=== PATIENT | female | born 1985 | race Caucasian/White ===

== ENCOUNTER 2023-11-26 17:04 | Emergency (ER) | payer MEDICAID, SELFPAY ==
[2023-11-26 17:05] VITALS: BP 125/106; PULSE 77; RESP 22; TEMP 35.4; O2SAT 99; BMI 31.7
--- NOTE | 2023-11-26 17:22 | CT_ITS ---
STUDY: CT Abdomen And Pelvis W/O Contrast Injection 11/26/2023 6:15 PM REASON FOR EXAM: Female, 38 years old. pain R flank pain Individualized dose optimization techniques were used for this CT. COMPARISON: None. TECHNIQUE: CT Abdomen And Pelvis W/O Contrast Injection FINDINGS: The visualized lung bases are unremarkable. The visualized portions of the heart are within normal limits. Normal liver. Normal gallbladder and extrahepatic biliary system. Normal spleen. Normal pancreas. Normal bilateral adrenal glands. There are hypodensities in the right kidney. These are consistent for cysts. No follow up required. No acute findings of the left kidney. Normal visualized stomach. Normal small intestine. Stool throughout the colon. There are surgical clips in the region of the appendix consistent with a prior appendectomy. No acute findings of the abdominal aorta. Normal inferior vena cava. Subcentimeter mesenteric lymph nodes. Normal urinary bladder. Normal visualized uterus. There is an umbilical hernia containing fat. There are diffuse degenerative changes of the visualized lumbar spine. CT/Abdomen/Pelvis without Cont IMPRESSION: (NOT LISTED IN ORDER OF SIGNIFICANCE) There are no acute findings. There are no acute findings. Other findings as above. Electronically Signed: Chris Godinez MD at 18:18 [facility] ,
--- NOTE | 2023-11-26 17:30 | EDS_ITS ---
HPI <GEE Murguia - Last Filed: 11/26/23 20:54> HPI - GI History of Present Illness Chief Complaint: Abd Pain Narrative Narrative: Patient presenting today due to right pain that radiates into her right lower quadrant and right groin that started around 3:30 PM this afternoon. She reports that the pain is sharp and constant. 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 She is not sure if this is related to her pain today or not. She does have a history of kidney stones and thinks that this feels similar. She denies any urinary symptoms. She has had one episode of nausea and vomiting today. Previous abdominal surgeries include appendectomy. She denies fevers, chills, and diarrhea. PFSH <GEE Murguia - Last Filed: 11/26/23 20:54> PFSH Medical History Epilepsy Kidney stone Ovarian cyst Home Medications cyclobenzaprine 10 mg tablet 10 mg PO TID PRN Muscle Spasm 5 days #15 TABLETS 11/26/23 [Rx Last Taken Unknown] fluoxetine 10 mg capsule (Prozac) 10 mg PO DAILY 11/26/23 [History Last Taken Unknown] loratadine 10 mg tablet (Allerclear) 10 mg PO DAILY 11/26/23 [History Last Taken Unknown] multivitamin (Daily Multi-Vitamin tablet) 1 tab PO DAILY 11/26/23 [History Last Taken Unknown] naproxen 500 mg tablet 500 mg PO BID #14 tabs 11/26/23 [Rx Last Taken Unknown] Allergy/AdvReac Type Severity Reaction Status Date / Time codeine Allergy Severe NEEDS Verified 11/26/23 17:07 FOLLOW-UP Penicillins Allergy Severe NEEDS Verified 11/26/23 17:07 FOLLOW-UP Surgical History Hx of appendectomy Hx of tonsillectomy Social History Smoking Status: Former smoker ROS <GEE uMrguia - Last Filed: 11/26/23 20:54> ROS ED Constitutional Constitutional ED: Denies chills or fever(s) Cardiovascular Cardiovascular: Denies chest pain Respiratory/Chest Respiratory/Chest: Denies cough or dyspnea Gastrointestinal Gastrointestinal: Reports abdominal pain, nausea and vomiting; Denies constipation or diarrhea Genitourinary Genitourinary ED: Denies dysuria, hematuria or urinary urgency Musculoskeletal Musculoskeletal: Reports back pain; Denies arthralgias or myalgias Integumentary Denies rash Neurologic Neurologic: Denies weakness EXAM <GEE Murguia - Last Filed: 11/26/23 20:54> Physical Exam Const Vital Signs: 11/26/23 17:05 11/26/23 17:18 11/26/23 19:04 Temperature 95.8 F L Temperature Source Temporal Pulse Rate 77 64 Respiratory Rate 22 H 16 Respiratory Effort Normal Non-Labored Respiratory Pattern Normal Blood Pressure 125/106 H 118/73 Blood Pressure Mean 112 88 Pulse Ox 99 99 Oxygen Delivery Method Room Air Positive well nourished, well developed and no apparent distress General Appearance ED: well developed HEENT Reports normocephalic and head/scalp atraumatic Mouth ED: Yes moist mucous membranes normal Eyes PERRL and EOMs intact bilaterally Neck full ROM and supple Chest Wall inspection of chest normal Resp normal respiratory effort and clear to auscultation bilaterally Cardio regular rate and regular rhythm GI soft to palpation, non-distended and no masses GI Narrative: Right lower quadrant tenderness to palpation, no rigidity, guarding, or peritoneal signs. Tenderness to palpation to the right groin. Back/Spine normal ROM and normal to inspection General Back: CVA tenderness right Extremity normal to inspection and full ROM Neuro oriented x3, CN's II-XII intact bilaterally, moves all extremities, no focal motor deficits and no sensory deficits noted Sensorium / Orientation: awake and alert Psych mental status grossly normal and thought process normal Skin no rashes or lesions noted and no wounds <Wilbert Rahman MD - Last Filed: 11/27/23 00:00> Physical Exam Const Vital Signs: 11/26/23 17:05 11/26/23 17:18 11/26/23 19:04 Temperature 95.8 F L Temperature Source Temporal Pulse Rate 77 64 Respiratory Rate 22 H 16 Respiratory Effort Normal Non-Labored Respiratory Pattern Normal Blood Pressure 125/106 H 118/73 Blood Pressure Mean 112 88 Pulse Ox 99 99 Oxygen Delivery Method Room Air MDM <GEE Murguia - Last Filed: 11/26/23 20:54> [facility] Narrative Medical decision making narrative: Patient presenting today due to right lower quadrant abdominal pain that radiates into the right flank and right groin. Symptoms started suddenly around 3:30 PM today. Reports that she has had 1 episode of vomiting today. She does have tenderness to her right lower quadrant, right flank, right groin. She reports an extensive history of kidney stones. 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 Abdominal labs will be obtained to rule out leukocytosis, anemia, electrolyte abnormality, ROB, UTI, hepatobiliary etiology, and pancreatitis. CT of the abdomen and pelvis will be obtained to rule out kidney stone, hernia, and other etiology. Labs overall are unremarkable. UA does show nitrites and leukocyte Estrace, she does not have any urinary symptoms, this will be cultured. UA does show blood, she is on her menstrual period. CT is negative for any acute findings. Patient's examination is consistent with muscular strain of the right groin. She will be given work restrictions. She can alternate Tylenol and ibuprofen for pain as needed. She will be discharged home in stable condition and is comfortable with plan. Lab Data Attestation: I reviewed the patient's lab results. Labs: Laboratory Results - last 24 hr 11/26/23 11/26/23 17:32 17:35 WBC 5.4 RBC 4.63 Hgb 13.1 Hct 38.9 MCV 84.0 MCH 28.3 MCHC 33.7 RDW Std Deviation 40.5 RDW Coeff of Kenna 13.2 Plt Count 327 MPV 9.0 Immature Gran % (Auto) 0.200 Neut % (Auto) 56.5 Lymph % (Auto) 34.7 [place] % (Auto) 5.9 Eos % (Auto) 2.0 Baso % (Auto) 0.7 Absolute Neuts (auto) 3.1 Absolute Lymphs (auto) 1.88 Nucleated RBC % 0 Sodium 140 Potassium 3.6 Chloride 108 H Carbon Dioxide 26.0 Anion Gap 6 BUN 7 Creatinine 0.76 Estim Creat Clear Calc 106.87 Est GFR (MDRD) Af Amer 108 Est GFR (MDRD) Non-Af 89 BUN/Creatinine Ratio 9.2 L Glucose 94 Calcium 9.6 Total Bilirubin 0.40 Direct Bilirubin 0.10 AST 17 ALT 16 Alkaline Phosphatase 102 Total Protein 7.6 Albumin 3.9 Globulin 3.7 Lipase 18 Serum , Qual NEGATIVE Urine Color Red Urine Clarity Cloudy Urine pH 5.0 Ur Specific [place] 1.020 Urine Protein 100 H Urine Glucose (UA) Normal Urine Ketones 5 H Urine Occult Blood 250 H Urine Nitrite Positive H Urine Bilirubin Negative Urine Urobilinogen Normal Ur Leukocyte Esterase 100 H Urine RBC > 100 SEEN Urine WBC 0 SEEN Ur Squamous Epith Cells 0-5 SEEN Urine Bacteria 0 SEEN Urine Mucus 0 SEEN Radiography Diagnostic Testing: Clinical Impression(s) from Imaging Studies Abdomen/Pelvis CT 11/26/23 17:22 IMPRESSION: (NOT LISTED IN ORDER OF SIGNIFICANCE) There are no acute findings. There are no acute findings. Other findings as above. Electronically Signed: Chris Godinez MD at 18:18 EST Reading Location ID and State: [facility] / [place] , Service support , <Wilbert Rahman MD - Last Filed: 11/27/23 00:00> [facility] Narrative Medical decision making narrative: Patient presenting today due to right lower quadrant abdominal pain that radiates into the right flank and right groin. Symptoms started suddenly around 3:30 PM today. Reports that she has had 1 episode of vomiting today. She does have tenderness to her right lower quadrant, right flank, right groin. She reports an extensive history of kidney stones. 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 Abdominal labs will be obtained to rule out leukocytosis, anemia, electrolyte abnormality, ROB, UTI, hepatobiliary etiology, and pancreatitis. CT of the abdomen and pelvis will be obtained to rule out kidney stone, hernia, and other etiology. Labs overall are unremarkable. UA does show nitrites and leukocyte Estrace, she does not have any urinary symptoms, this will be cultured. UA does show blood, she is on her menstrual period. CT is negative for any acute findings. Patient's examination is consistent with muscular strain of the right groin. She will be given work restrictions. She can alternate Tylenol and ibuprofen for pain as needed. She will be discharged home in stable condition and is comfortable with plan. Dr. Rahman: I have personally performed a face to face assessment of the patient and have reviewed the PEDRO Note. I performed a substantive portion of the visit including all aspects of the following. My henry findings include: History is right groin pain/right lower quadrant abdominal pain after lifting heavy patient. Exam is afebrile. Vital signs noted. Mild tenderness to palpation right lower quadrant, and the right inguinal area, no palpable hernia. Abdomen otherwise soft and nontender. Positive bowel sounds. Medical Decision Making: Check labs. Check CT. I reviewed the CT results see no evidence of an acute process. Do feel she may have more of a musculoskeletal groin strain. Symptomatic treatment with anti-inflammatories and muscle relaxers. Follow-up primary care. Discharge. Other additions or changes: [None] History & Record Review Discussion w/independent historian: Patient Lab Data Labs: Laboratory Results - last 24 hr 11/26/23 11/26/23 17:32 17:35 WBC 5.4 RBC 4.63 Hgb 13.1 Hct 38.9 MCV 84.0 MCH 28.3 MCHC 33.7 RDW Std Deviation 40.5 RDW Coeff of Kenna 13.2 Plt Count 327 MPV 9.0 Immature Gran % (Auto) 0.200 Neut % (Auto) 56.5 Lymph % (Auto) 34.7 [place] % (Auto) 5.9 Eos % (Auto) 2.0 Baso % (Auto) 0.7 Absolute Neuts (auto) 3.1 Absolute Lymphs (auto) 1.88 Nucleated RBC % 0 Sodium 140 Potassium 3.6 Chloride 108 H Carbon Dioxide 26.0 Anion Gap 6 BUN 7 Creatinine 0.76 Estim Creat Clear Calc 106.87 Est GFR (MDRD) Af Amer 108 Est GFR (MDRD) Non-Af 89 BUN/Creatinine Ratio 9.2 L Glucose 94 Calcium 9.6 Total Bilirubin 0.40 Direct Bilirubin 0.10 AST 17 ALT 16 Alkaline Phosphatase 102 Total Protein 7.6 Albumin 3.9 Globulin 3.7 Lipase 18 Serum , Qual NEGATIVE Urine Color Red Urine Clarity Cloudy Urine pH 5.0 Ur Specific [place] 1.020 Urine Protein 100 H Urine Glucose (UA) Normal Urine Ketones 5 H Urine Occult Blood 250 H Urine Nitrite Positive H Urine Bilirubin Negative Urine Urobilinogen Normal Ur Leukocyte Esterase 100 H Urine RBC > 100 SEEN Urine WBC 0 SEEN Ur Squamous Epith Cells 0-5 SEEN Urine Bacteria 0 SEEN Urine Mucus 0 SEEN Radiography Diagnostic Testing: Clinical Impression(s) from Imaging Studies Abdomen/Pelvis CT 11/26/23 17:22 IMPRESSION: (NOT LISTED IN ORDER OF SIGNIFICANCE) There are no acute findings. There are no acute findings. Other findings as above. Electronically Signed: Chris Godinez MD at 18:18 EST Reading Location ID and State: [facility] / [place] , Service support , Discharge Plan Triage Chief Complaint: Abd Pain ED Midlevel Provider: Kary Blakely ED Provider: Wilbert Rahman Dx/Rx/DC Orders Clinical Impression: Strain of right groin Instructions: ED Groin Strain Prescriptions: New naproxen 500 mg tablet 500 mg PO BID Qty: 14 0RF cyclobenzaprine 10 mg tablet 10 mg PO TID PRN (Reason: Muscle Spasm) 5 Days Qty: 15 0RF No Action fluoxetine [Prozac] 10 mg capsule 10 mg PO DAILY multivitamin [Daily Multi-Vitamin] Tablet 1 tab PO DAILY loratadine [Allerclear] 10 mg tablet 10 mg PO DAILY Stand Alone Forms: Work Status Form Primary Care Provider: Bessie Cadet NP Referrals: NOT,DEFINED [Non-Staff] - Activity Restrictions/Additional Instructions: Follow-up with your PCP, return for any worsening of your symptoms. Disposition Disposition: Home, Self Care Discharge Date/Time: 11/26/23 19:06
[2023-11-26] MEDS: Ondansetron 4 MG/2 ML Vial IV (17:31)
[2023-11-26] MEDS: Ketorolac 15 MG/ML Vial IV (17:32)
[2023-11-26 17:42] LABS: Bacteria 0 SEEN /hpf (None Seen); Mucous, Urine 0 SEEN /hpf (<or=2+)
[2023-11-26 17:59] LABS: Color, Urine Red (Yellow); Glucose, Dipstick Normal (Normal); Ketone-Dipstick 5 mg/dl (Negative); Leukocyte Esterase-Dipstick 100 /ul (Negative); Nitrite-Dipstick Positive (Negative); Occult Blood-Urine 250 /ul (Negative); Protein-Dipstick 100 mg/dl (Negative); Urine Bilirubin Dipstick Negative (Negative); Urine Clarity Cloudy (Clear); Urine Urobilinogen Normal (Normal)
[2023-11-26 17:59] LABS: Absolute Lymphocyte Count 1.88 X10^3/uL (0.83-4.51); Absolute Neutrophil Count 3.1 X10^3/uL (2.0-7.7); Basophil# 0.04 X10^3/uL; Basophil% 0.7 % (0-1); Eosinophil# 0.11 X10^3/uL; Hematocrit 38.9 % (37-47); Hemoglobin 13.1 g/dL (12.0-15.0); Lymphocyte # 1.88 X10^3/ul (0.83-4.51); Lymphocyte % 34.7 % (19-41); Mean Corp Hgb Conc 33.7 g/dL (32-36); Mean Corpuscular Hgb 28.3 pg (27.0-32.0); Monocyte# 0.32 X10^3/uL; Monocyte% 5.9 % (0-10); NRBC Flagged by Analyzer 0 % (0-5); Neutrophil # 3.06 X10^3/uL (2.7-7.7); Neutrophil % 56.5 % (47-70); Platelet Count 327 K/mm3 (150-450); RBC Distribution Width CV 13.2 % (11.6-14.6); RBC Distribution Width SD 40.5 fl (35.1-43.9); Red Blood Count 4.63 M/mm3 (4.2-5.4); White Blood Count 5.4 K/mm3 (4.4-11.0)
[2023-11-26 18:05] LABS: Red Blood Cells-Urine > 100 SEEN /hpf (0-5); Squamous Epithelial Cells - UA 0-5 SEEN /hpf (5-10); White Blood Cells 0 SEEN /hpf (0-5)
[2023-11-26 18:12] LABS: Internal QC Validated? YES +Cl - CLEAR BKGD; Pregnancy, Serum, hCG Quali. NEGATIVE Negative
[2023-11-26 18:17] LABS: Anion Gap 6 (5-15); BUN 7 mg/dL (7-18); BUN/Creat Ratio 9.2 RATIO (10-20); Calcium,Total 9.6 mg/dL (8.5-10.1); Chloride 108 mmol/L (98-107); Creatinine, Serum 0.76 mg/dL (0.55-1.02); EST Glomerular Filtration Rate 89 mL/min (>60); Est Glom Filt Rate - Afr Amer 108 mL/min (>60); Estimated Creatinine Clearance 106.87 ml/min; Glucose 94 mg/dL (74-106); Potassium 3.6 mmol/L (3.5-5.1); Sodium Level 140 mmol/L (136-145)
[2023-11-26 18:44] LABS: Lipase 18 U/L (13-75)
[2023-11-26 18:46] LABS: AST(SGOT) 17 U/L (15-37); Alanine Aminotransfer ALT/SGPT 16 U/L (13-56); Albumin, Serum 3.9 g/dL (3.2-5.0); Alkaline Phosphatase 102 U/L (45-117); Globulin 3.7 g/dL (2.2-4.2); Protein, Total 7.6 g/dL (6.4-8.2)
[2023-11-26 19:04] VITALS: BP 118/73; PULSE 64; RESP 16; O2SAT 99
== END 2023-11-26 19:06 | disposition home or self-care (01) ==
PROVIDERS: Physician Assistant; Emergency Provider Emergency Medicine; PCP Nurse Practitioner Family; Visit Provider Emergency Medicine
DX: S39.011A Strain of muscle, fascia and tendon of abdomen, initial encounter (principal); Z87.891 Personal history of nicotine dependence; Z87.442 Personal history of urinary calculi; X50.0XXA Overexertion from strenuous movement or load, initial encounter
CPT/HCPCS: 74176; 80048; 80076; 81001; 83690; 84703; 85025; 96374; 96375; 99283; A4216; J2405

== ENCOUNTER → 2024-01-11 | Outpatient (CLI) | payer MEDICAID, SELFPAY | END | disposition home or self-care (01) | PROVIDERS: PCP Nurse Practitioner Family; Visit Provider Physician Assistant Surgical | DX: N39.0 Urinary tract infection, site not specified (principal) | CPT/HCPCS: 87086; 87088 ==

== ENCOUNTER 2024-08-04 16:11 | Emergency (ER) | payer MEDICAID, SELFPAY ==
[2024-08-04 16:12] VITALS: BP 144/111; PULSE 81; RESP 18; TEMP 36.6; O2SAT 97; BMI 34.3
--- NOTE | 2024-08-04 16:24 | ED.VIS.LOWEX ---
HPI History of Present Illness Chief Complaint: Lower Extremity Injury Narrative Narrative: 39-year-old female past medical history of epilepsy and has had previous plantar fasciitis presents with left foot and ankle pain that she has had for about the last 3 weeks. She relates history that she is at work and on her feet all day and stands on concrete. She has had to change her shoes multiple times in the past. She presents with pain diffusely across the top of her foot and somewhat in her heel as well on the bottom/plantar aspect that she has had for 3 weeks. She states she went to her primary care provider previously and asked for referral to podiatry, but has not heard back. She presents because the continued pain. She states while she always has always had bouts of plantar fasciitis, she states she usually deals with it. She presents because the pain in her left foot that is continuing to get worse. [facility] Medical History Epilepsy Ovarian cyst Kidney stone Home Medications ?Medication ?Instructions ?Recorded ?Last Taken ?Type fluoxetine 10 mg capsule (Prozac) 10 mg PO DAILY 11/26/23 Unknown History multivitamin (Daily Multi-Vitamin 1 tab PO DAILY 11/26/23 Unknown History tablet) naproxen 500 mg tablet 500 mg PO BID #14 tabs 11/26/23 Unknown Rx melatonin 5 mg capsule 5 mg PO DAILY PRN sleep 08/04/24 Unknown History Allergy/AdvReac Type Severity Reaction Status Date / Time codeine Allergy Severe NEEDS Verified 08/04/24 16:14 FOLLOW-UP Penicillins Allergy Severe NEEDS Verified 08/04/24 16:14 FOLLOW-UP Seasonal Allergies: Uncoded Allergy Mild Other Verified 08/04/24 16:14 Surgical History Hx of tonsillectomy Hx of appendectomy Social History Smoking Status: Former smoker ROS ROS ED ROS Narrative Constitutional: No fever, no chills. HEENT: No sore throat. No neck pain. No loss of vision. No rhinorrhea. Cardiovascular: No chest pain. No palpitations. No pedal edema. Respiratory: No cough, no shortness of breath. Abdominal: No abdominal pain. No nausea. No vomiting. Genitourinary: No dysuria. No hematuria. Musculoskeletal: Left plantar heel and left dorsum of foot pain, mild left ankle pain. Neurologic: No headaches. No dizziness. No lightheadedness. Skin: No rash. No change in color. Psychiatric: No depression. No anxiety. EXAM Physical Exam Narrative Exam Narrative: Afebrile. Vital signs noted. Nontoxic-appearing. Regular rate and rhythm. Lungs clear to auscultation bilaterally. Abdomen soft nontender with normal active bowel sounds. Focused examination of the left foot reveals diffuse tenderness to palpation along the dorsum of the foot mainly in the tarsal bones. Palpable dorsalis pedis pulse. No malleolus tenderness. Mild tenderness palpation on plantar aspect of foot near calcaneus. Good capillary refill of toes. Const Vital Signs: 08/04/24 16:12 Temperature 97.9 F Temperature Source Oral Pulse Rate 81 Respiratory Rate 18 Blood Pressure 144/111 H Blood Pressure Mean 122 Pulse Ox 97 Oxygen Delivery Method Room Air MDM MDM MDM Narrative Medical decision making narrative: Differential diagnosis includes but not limited to plantar fasciitis versus foot strain/sprain versus fracture. I have very low suspicion for foot or ankle fracture based on her physical examination and she has not had trauma. X-rays were obtained of the left foot to rule out fracture and interpreted by myself independently. 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 I reviewed the radiology report which confirms my independent interpretation. At this point in time, she was placed in a postoperative shoe and can continue [id number] medications and ice and elevation. She was referred to podiatry on-call. I do not feel she requires admission or observation. Return instructions to the emergency department were reviewed. Disposition is discharged home in stable condition. Radiography X-Ray: Read by ED Physician, Read by Radiologist and No Fracture Diagnostic Testing: Clinical Impression(s) from Imaging Studies Foot X-Ray 08/04/24 16:26 IMPRESSION: Degenerative changes of the first tarsometatarsal joint. Electronically Signed: Chris Godinez MD at 17:04 EDT Reading Location ID and State: [facility] / [place] , Service support , Discharge Plan Triage Chief Complaint: Lower Extremity Injury ED Provider: Wilbert Rahman Dx/Rx/DC Orders Clinical Impression: Foot pain, left, Plantar fasciitis of left foot, Osteoarthritis of foot, left Instructions: ED Osteoarthritis, ED Pain, Acute, Uncertain Cause, ED Plantar Fasciitis Prescriptions: No Action fluoxetine [Prozac] 10 mg capsule 10 mg PO DAILY multivitamin [Daily Multi-Vitamin] Tablet 1 tab PO DAILY naproxen 500 mg tablet 500 mg PO BID Qty: 14 0RF melatonin 5 mg capsule 5 mg PO DAILY PRN (Reason: sleep) Primary Care Provider: Bessie Cadet NP Referrals: Trevon Velazquez DPM [Med Staff - Active Staff] - As soon as possible Bessie Cadet NP, [employer] [Primary Care Provider] - 3-5 Days if not improving Activity Restrictions/Additional Instructions: Wear postoperative shoe when walking or standing if possible. You may remove for bathing and sleeping. Follow-up with your primary care provider or podiatry as soon as possible. Take [id number] medications like Tylenol or ibuprofen as needed for pain. Print Language: Italian Disposition Disposition: Home, Self Care
--- NOTE | 2024-08-04 16:26 | RAD_ITS ---
EXAM: XR LEFT FOOT COMPLETE, 3 OR MORE VIEWS CLINICAL INDICATION: pain TECHNIQUE: Frontal, lateral and oblique views of the left foot. COMPARISON: No relevant prior studies available. FINDINGS: BONES/JOINTS: There is a calcaneal spur. Degenerative changes of the first tarsometatarsal joint. No acute fracture. No subluxation. Normal alignment. No sclerotic or destructive changes observed. SOFT TISSUES: Unremarkable. No soft tissue swelling or gas. No radiopaque foreign body. RAD/Foot min 3 Views IMPRESSION: Degenerative changes of the first tarsometatarsal joint. Electronically Signed: Chris Godinez MD at 17:04 EDT ,
[2024-08-04 17:15] VITALS: BP 144/111; PULSE 81; RESP 18; TEMP 36.6; O2SAT 97
== END 2024-08-04 17:16 | disposition home or self-care (01) ==
LOC: ED 16:42
PROVIDERS: Emergency Provider Emergency Medicine; PCP Nurse Practitioner Family; Referring Provider Emergency Medicine; Visit Provider Emergency Medicine
DX: M79.672 Pain in left foot (principal); M19.072 Primary osteoarthritis, left ankle and foot; M72.2 Plantar fascial fibromatosis; Z87.891 Personal history of nicotine dependence
CPT/HCPCS: 73630; 99283

== ENCOUNTER → 2024-08-16 | Outpatient (CLI) | payer MEDICAID, SELFPAY ==
[2024-08-16 17:41] LABS: Hematocrit 35.9 % (37-47); Hemoglobin 12.1 g/dL (12.0-15.0); Mean Corp Hgb Conc 33.7 g/dL (32-36); Mean Corpuscular Hgb 28.2 pg (27.0-32.0); Mean Corpuscular Volume 83.7 fL (81-99); Mean Platelet Vol. 8.9 fl (6.2-12.0); Platelet Count 293 K/mm3 (150-450); RBC Distribution Width CV 13.3 % (11.6-14.6); Red Blood Count 4.29 M/mm3 (4.2-5.4); White Blood Count 6.3 K/mm3 (4.4-11.0)
[2024-08-16 18:14] LABS: ALB/GLOB Ratio 1.1 RATIO (0.9-2.4); AST(SGOT) 9 U/L (15-37); Alanine Aminotransfer ALT/SGPT 11 U/L (13-56); Albumin, Serum 3.8 g/dL (3.2-5.0); Alkaline Phosphatase 103 U/L (45-117); Amylase 32 U/L (25-115); Anion Gap 5 (5-15); BUN 11 mg/dL (7-18); BUN/Creat Ratio 13.7 RATIO (10-20); Calcium,Total 8.9 mg/dL (8.5-10.1); Chloride 108 mmol/L (98-107); EST Glomerular Filtration Rate 84 mL/min (>60); Est Glom Filt Rate - Afr Amer 101 mL/min (>60); Globulin 3.6 g/dL (2.2-4.2); Glucose 89 mg/dL (74-106); Lipase 22 U/L (13-75); Potassium 3.6 mmol/L (3.5-5.1); Protein, Total 7.4 g/dL (6.4-8.2); Sodium Level 140 mmol/L (136-145)
== END | disposition home or self-care (01) ==
LOC: LAB 17:20
PROVIDERS: PCP Nurse Practitioner Family; Referring Provider Nurse Practitioner Family; Visit Provider Nurse Practitioner Family
DX: R11.0 Nausea (principal)
CPT/HCPCS: 80053; 82150; 83690; 85027

== ENCOUNTER → 2024-10-23 | Outpatient (CLI) | payer MEDICAID, SELFPAY ==
[2024-10-26 10:07] LABS: Chlamydia By Nucleic Acid AMP Negative (Negative); Gonococcus By Nucleic Acid AMP Negative (Negative)
[2024-11-02 19:07] LABS: HPV APTIMA, High Risk Negative (Negative)
== END | disposition home or self-care (01) ==
LOC: LABSPEC 14:20
PROVIDERS: PCP Nurse Practitioner Family; Referring Provider Nurse Practitioner Women's Health; Visit Provider Nurse Practitioner Women's Health
DX: Z12.4 Encounter for screening for malignant neoplasm of cervix (principal); N89.8 Other specified noninflammatory disorders of vagina
CPT/HCPCS: 87070; 87205; 87491; 87591; 87624; 88175; G0145

== ENCOUNTER → 2025-06-30 | Outpatient (CLI) | payer MEDICAID, SELFPAY ==
[2025-06-30 12:14] LABS: Mucous, Urine 0 SEEN /hpf (<or=2+)
[2025-06-30 12:26] LABS: Color, Urine Yellow (Yellow); Glucose, Dipstick Normal (Normal); Ketone-Dipstick Negative (Negative); Leukocyte Esterase-Dipstick 100 /ul (Negative); Nitrite-Dipstick Negative (Negative); Occult Blood-Urine Negative /ul (Negative); Protein-Dipstick Negative (Negative); Specific Gravity, Urine 1.010 (1.002-1.030); Urine Bilirubin Dipstick Negative (Negative)
[2025-06-30 12:42] LABS: Red Blood Cells-Urine 0-5 SEEN /hpf (0-5); Squamous Epithelial Cells - UA 0-5 SEEN /hpf (5-10)
== END | disposition home or self-care (01) ==
LOC: LABSPEC 12:08
PROVIDERS: PCP Nurse Practitioner Family; Referring Provider Nurse Practitioner Family; Visit Provider Nurse Practitioner Family
DX: R30.0 Dysuria (principal)
CPT/HCPCS: 81001; 87086; 87088

== ENCOUNTER → 2025-09-09 | Outpatient (CLI) | payer MEDICAID, SELFPAY ==
[2025-09-09 12:27] LABS: Hematocrit 41.1 % (37-47); Hemoglobin 14.0 g/dL (12.0-15.0); Immature Granulocytes Count 0.020 X10^3/uL (0.0-0.0); Mean Corp Hgb Conc 34.1 g/dL (32-36); Mean Corpuscular Volume 84.2 fL (81-99); Mean Platelet Vol. 9.1 fl (6.2-12.0); NRBC Flagged by Analyzer 0 % (0-5); Platelet Count 373 K/mm3 (150-450); RBC Distribution Width CV 13.1 % (11.6-14.6); RBC Distribution Width SD 40.2 fl (35.1-43.9); Red Blood Count 4.88 M/mm3 (4.2-5.4); White Blood Count 7.6 K/mm3 (4.4-11.0)
[2025-09-09 13:02] LABS: AST(SGOT) 18 U/L (<=31); Alanine Aminotransfer ALT/SGPT 19 U/L (<=34); Albumin, Serum 4.6 g/dL (3.5-5.0); Alkaline Phosphatase 118 U/L (35-104); Anion Gap 10 (5-15); BUN 7 mg/dL (4-19); BUN/Creat Ratio 11.8 RATIO (10-20); Calcium,Total 9.4 mg/dL (7.6-11.0); Carbon Dioxide 26.1 mmol/L (21.0-32.0); Chloride 102 mmol/L (98-108); Cholesterol 190 mg/dL (<=200); Globulin 3.4 g/dL (2.2-4.2); Glucose 99 mg/dL (70-99); Low Density Lipoprotein Calc. 129 mg/dL; Potassium 4.1 mmol/L (3.3-5.1); Triglycerides 82 mg/dL; Very Low Density Lipoprotein 16 mg/dL (5-40); cholesterol:hdl ratio screen 4.17
[2025-09-10 14:09] LABS: ANTINUCLEAR ANTIBODIES DIRECT Negative (Negative)
== END | disposition home or self-care (01) ==
LOC: MTLAB 10:52
PROVIDERS: PCP Internal Medicine; Referring Provider Internal Medicine; Visit Provider Internal Medicine
DX: Z13.6 Encounter for screening for cardiovascular disorders (principal); M06.9 Rheumatoid arthritis, unspecified; K21.9 Gastro-esophageal reflux disease without esophagitis
CPT/HCPCS: 86225; 36415; 80053; 80061; 85025; 86038; 86200; 86431

== ENCOUNTER 2025-10-09 14:10 | Emergency (ER) | payer MEDICAID, SELFPAY ==
[2025-10-09 14:11] VITALS: BP 146/99; PULSE 80; RESP 22; TEMP 36.2; O2SAT 100; BMI 39.2
[2025-10-09 15:08] VITALS: BP 145/95; PULSE 81; RESP 16; TEMP 36.8; O2SAT 100
--- NOTE | 2025-10-09 15:26 | EX.ED.DYSGE1 ---
HPI History of Present Illness Chief Complaint: Nosebleed Narrative Narrative: Patient is a 40-year-old female presenting to the emergency department for epistaxis. Patient has history of allergies for which she receives allergy shots weekly. She states that when the weather gets dry she develops frequent nosebleeds. States that today about 20 minutes prior to arrival she began having a nosebleed that she cannot stop. Is on no oral anticoagulation. Denies any lightheadedness, dizziness or shortness of breath. [facility] Medical History Rheumatoid arthritis Seizures, post-traumatic Normal colonoscopy Epilepsy Ovarian cyst Kidney stone Home Medications ?Medication ?Instructions ?Recorded ?Last Taken ?Type naproxen 500 mg tablet 500 mg PO BID #14 tabs 11/26/23 Unknown Rx allergy shots subcut .weekly [facility] 04/28/25 Unknown History seasonal allergies fluticasone propionate 50 spray intranasal 04/28/25 Unknown History mcg/actuation nasal spray,suspension triamcinolone acetonide 0.5 % 1 applic topical TID PRN itching 04/28/25 Unknown Rx topical ointment #15 grams albuterol sulfate 90 mcg/actuation 2 puff inhalation Q6H PRN 09/09/25 Unknown Rx aerosol inhaler (Ventolin HFA) shortness of breath or wheezing #8.5 grams cetirizine 10 mg tablet (Zyrtec) 10 mg PO QDAY PRN allergy symptoms 09/09/25 Unknown Rx #90 tabs multivitamin (Daily Multi-Vitamin 1 tab PO DAILY PRN 09/09/25 Unknown History tablet) nicotine (polacrilex) 2 mg buccal 2 mg buccal Q6H PRN 09/09/25 Unknown History lozenge omeprazole 20 mg capsule,delayed 20 mg PO QDAY #90 caps 09/09/25 Unknown Rx release Allergy/AdvReac Type Severity Reaction Status Date / Time codeine Allergy Severe NEEDS Verified 10/09/25 14:12 FOLLOW-UP Penicillins Allergy Severe NEEDS Verified 10/09/25 14:12 FOLLOW-UP Seasonal Allergies: Uncoded Allergy Mild Other Verified 10/09/25 14:12 Family History Father Cancer SKin Diabetes Myocardial infarction, Onset Age: 71 Grandmother Breast cancer Maternal CVA (cerebral vascular accident) Mother Diabetes MRSA (methicillin resistant Staphylococcus aureus) Surgical History H/O lithotripsy H/O ovarian cystectomy History of mandibular surgery Hx of tonsillectomy Hx of appendectomy Social History adopted: No household members: children number of children: 1 current occupational status: employed 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 pets and animals: Yes (2) pets and animals: dog(s) sexually active: No Smoking Status: Former smoker quit date: 11/06/19 Tobacco: How many years used: 27 Smokeless tobacco user: dissolvable tobacco and other alcohol intake: former year quit: 2018 substance use type: does not use and former substance user Date of last use: diet: lactose free caffeine: Yes (blonde coffee-1qd) Type: coffee what type of physical activity do you participate in: walking frequency: other details: walks dogs duration: 15-30 minutes/day seatbelt use: always do you feel safe at home: Yes additional social history: Single ROS ROS ED ROS Narrative See HPI EXAM Physical Exam Narrative Exam Narrative: Vital signs: Reviewed General: Alert and oriented x 3. No acute distress. Well-appearing, nontoxic. HEENT: Head is normocephalic and atraumatic, sinuses nontender, pupils equal round and reactive. Nares are patent. There is dried blood in bilateral naris, no active bleeding. Oropharynx and throat exams normal. No blood in posterior oropharynx. Neck: Supple without lymphadenopathy nontender Cardiovascular: Regular rate and rhythm, no murmurs. No rubs or gallops. Normal S1 and S2 Respiratory: Clear to auscultation bilaterally. No wheezes, rales, rhonchi Abdominal: Soft and nontender. Normal bowel sounds. No guarding or rebound. Nonsurgical abdomen Extremities: No tenderness. No bruising. Normal range of motion. Normal sensation. Skin: No rash or redness. The rest of the physical exam is unremarkable Const Vital Signs: 10/09/25 14:11 10/09/25 15:08 Temperature 97.2 F L 98.2 F Temperature Source Temporal Pulse Rate 80 81 Respiratory Rate 22 H 16 Blood Pressure 146/99 H 145/95 H Blood Pressure Mean 114 111 Pulse Ox 100 100 Oxygen Delivery Method Room Air MDM MDM MDM Narrative Medical decision making narrative: Patient is a 40-year-old female presenting to the emergency department for epistaxis. Patient was seen and examined. Vitals are stable. Patient resting in bed comfortably no acute distress. On my evaluation of the patient, her epistaxis has stopped. She has no active bleeding. No intervention indicated. I did provide her with a nose clip for home to use if needed. I did also provide her with ENT follow-up. Patient discharged from the Emergency Department. I do not feel that the patient's evaluation reveals any acute reason for admission at this time. I instructed them to either follow-up with their primary care physician or promptly return to the Emergency Department for reevaluation should symptoms worsen or new symptoms develop. I explained what symptoms would indicate the need to return to the emergency department. Shared decision making was used. The patient voiced understanding of the treatment plan and is agreeable with it. Clinical impression: Epistaxis History & Record Review Discussion w/independent historian: Patient Discharge Plan Triage Chief Complaint: Nosebleed ED Provider: Nikia Laboy Dx/Rx/DC Orders Clinical Impression: Epistaxis Instructions: ED Epistaxis (Adult) Prescriptions: No Action omeprazole 20 mg capsule,delayed release(DR/EC) 20 mg PO QDAY Qty: 90 0RF cetirizine [Zyrtec] 10 mg tablet 10 mg PO QDAY PRN (Reason: allergy symptoms) Qty: 90 0RF albuterol sulfate [Ventolin HFA] 90 mcg/actuation HFA aerosol inhaler 2 puff inhalation Q6H PRN (Reason: shortness of breath or wheezing) Qty: 8.5 0RF nicotine (polacrilex) 2 mg lozenge 2 mg buccal Q6H PRN allergy shots subcut .weekly fluticasone propionate 50 mcg/actuation spray,suspension intranasal triamcinolone acetonide 0.5 % ointment 1 applic topical TID PRN (Reason: itching) Qty: 15 1RF naproxen 500 mg tablet 500 mg PO BID Qty: 14 0RF multivitamin [Daily Multi-Vitamin] Tablet 1 tab PO DAILY PRN Primary Care Provider: Nilam Montaño Referrals: Nilam Montaño MD [Primary Care Provider, Internal Medicine] Adarsh Gold MD [Med Staff - Courtesy Staff, Ear Nose Throat (ENT)] - As soon as possible Activity Restrictions/Additional Instructions: If you develop another nosebleed due to the measures that you did at home and you can place a nose clip as well. If it does not stop you can return to the emergency department. I provided you an ENT doctor. Your evaluation in the Emergency Department did not reveal any acute reason for admission. However, I want to emphasize that you may be early in the course of a disease process or illness even if it is not present. For this reason you should follow-up within 24 hours for reevaluation with either your primary care physician or if necessary back here in the Emergency Department. You should return to the Emergency Department immediately if your symptoms worsen or new symptoms develop. Print Language: Telugu Disposition Disposition: Home, Self Care Discharge Date/Time: 10/09/25 15:12
== END 2025-10-09 15:12 | disposition home or self-care (01) ==
PROVIDERS: Emergency Provider Student in an Organized Health Care Education/Training Program; PCP Internal Medicine; Visit Provider Student in an Organized Health Care Education/Training Program
DX: R04.0 Epistaxis (principal); Z87.891 Personal history of nicotine dependence
CPT/HCPCS: 99282

== ENCOUNTER → 2025-10-20 | Outpatient (CLI) | payer MEDICAID, SELFPAY ==
--- NOTE | 2025-10-20 07:30 | BI_ITS ---
EXAM: SCRN MAMM (CAD)W/SAM BILAT DATE: 10/20/2025 CLINICAL HISTORY: F, Age 40 y/o , SCREENING TECHNIQUE: Procedure Code: [id number] Modality: MG Procedure: SCRN MAMM (CAD)W/SAM BILAT COMPARISON: Prior exam(s) dated 06/17/2020. FINDINGS: TISSUE DENSITY: The breasts are heterogeneously dense, which may obscure small masses. Bilateral Breast Mammographic Findings: Benign-appearing round microcalcifications are seen in both breasts. No suspicious masses, suspicious cluster of microcalcifications, architectural distortion or secondary sign of malignancy is identified in either breast. BI/SCRN MAMM (CAD)W/SAM BILAT IMPRESSION: Benign screening mammogram. OVERALL FINAL ASSESSMENT BI-RADS 2: BENIGN RECOMMENDATION: Routine annual follow-up in 1 Year Additional Recommendation none A letter with findings and recommendations will be mailed to the patient. Reading Location: [id number]
--- OUTSIDE RECORDS SUMMARY | 2025-10-20 07:47 | XMS RPT_ITS | CCD ---
Author Organization [facility] Care Team Providers Care Animal Caretaker Name Role Phone CRIS QUINTERO (PA-C) Unavailable Unavai Cordelia Patterson Primary Care Provider [phone] Cordelia Hassan MD Primary Care Provider Free, Text Entry Unavailable Unavailable Alessandro Zamora Unavailable Pending Provider Unavailable Unavailable Unavailable Unavailable Susan Galvez Unavailable Unavailable Connie Rivero Unavailable Unavailable Monica Garcia Unavailable Unavailable Hernan DUPREE, Cordelia Primary Care Provider Becky Mcguire APRN, CNP Primary Care Pro vider Means, Ainsley Unavailable Unavailable Ross Santos Unavailable Unavailable Polo Coelho MD Primary Care Provider Britt Newton Unavailable Polo Coelho MD Primary Care Provider Pending, Provider Primary Care Unavailable Susan Galvez Attending Unavailabl e Pending, Provider Primary Care Unavailable Ross Santos Attending Unavailable Pending, Provider Primary Care Unavailable Kasi Weiss Attending Unavailabl e Pending, Provider Primary Care Unavailable Britt Newton Attending Unavailabl e Randy Del Toro Attending Unavailable Pending, Provider Primary Care Unavailable Dr. Monica Garcia Attending Unavail able Pending, Provider Primary Care Unavailable Coelho MD, Polo Primary Care Provider COELHO, POLO Primary Care Unavailable SELF, SELF Referring Unavailable COELHO, POLO Attending Unavailable COELHO, POLO Primary Care Unavailable SELF, SELF Referring Unavailable COELHO, POLO Attending Unavailable COELHO, POLO Primary Care Unavailable SELF, SELF Referring Unavailable COELHO, POLO Primary Care Unavailable COELHO, POLO Attending Unavailable SELF, SELF Referring Unavailable WHIPKEY, ADELA J Attending Unavailable COELHO, POLO Primary Care Unavailable COELHO, POLO Primary Care Unavailable SELF, SELF Referring Unavailable COELHO, POLO Attending Unavailable WHIPKEY, ADELA J Attending Unavailable SELF, SELF Referring Unavailable COELHO, POLO Primary Care Unavailable COELHO, POLO Primary Care Unavailable SELF, SELF Referring Unavailable COELHO, POLO Attending Unavailable WHIPKEY, ADELA J Attending Unavailable COELHO, POLO Primary Care Unavailable SELF, SELF Referring Unavailable SELF, SELF Referring Unavailable COELHO, POLO Attending Unavailable COELHO, POLO Primary Care Unavailable SELF, SELF Referring Unavailable COELHO, POLO Attending Unavailable COELHO, POLO Primary Care Unavailable COELHO, POLO Primary Care Unavailable COELHO, POLO Primary Care Unavailable COELHO, POLO Primary Care Unavailable COELHO, POLO Primary Care Unavailable COELHO, POLO Primary Care Unavailable COELHO, POLO Primary Care Unavailable FOY, LAURY Attending Unavailable FOY, LAURY Primary Care Unavailable FOY, LAURY Admitting Unavailable Helio PUBLIC HEALTH PROGRAM MANAGER, PUBLIC HEALTH PROGRAM MANAGER-C Evelia Primary Care Provider Helio PUBLIC HEALTH PROGRAM MANAGER, PUBLIC HEALTH PROGRAM MANAGER-C Evelia Referring Provider GEE Saldana Attending Provider [phone] GEE Valadez Attending Provider [phone] Coelho, Polo Primary Care Provider [phone] Unavailable Primary Care Provider Unavailabl e EMETERIO PIZANO Referring Unavailable TESTBRITTANY, EMETEIRO Attending Unavailable EMETERIO PIZANO Referring Unavailable Helio DESOUZA-CEvelia Primary Care Provider [phone] Helio PUBLIC HEALTH PROGRAM MANAGER-CEvelia Referring Provider Ungjimyr PUBLIC HEALTH PROGRAM MANAGER-CAlejandra Attending Provider [phone] Ungjimyr PUBLIC HEALTH PROGRAM MANAGER-CAlejandra Referring Provider EVELIA CADET CNP Admitting Unavailable EVELIA CADET QC SCIENTIST Attending Unavailable EVELIA CADET QC SCIENTIST Primary Care Unavailable EVELIA CADET QC SCIENTIST Consulting Unavailable PROVIDER, UNKNOWN Consulting Unavailable PROVIDER, UNKNOWN Consulting Unavailable Helio PUBLIC HEALTH PROGRAM MANAGER, Evelia Referring Unavailable Helio PUBLIC HEALTH PROGRAM MANAGER, Evelia Primary Care Unavailable Callaway, Nilam Attending Unavailable Helio PUBLIC HEALTH PROGRAM MANAGER, Evelia Primary Care Unavailable Helio PUBLIC HEALTH PROGRAM MANAGER, Evelia Referring Unavailable Amando, Mary Attending Unavailable Helio PUBLIC HEALTH PROGRAM MANAGER, Evelia Primary Care Unavailable Amando, Mary Referring Unavailable Amando, Mary Attending Unavailable Ungerer, Alejandra Attending Unavailable Ungerer, Alejandra Referring Unavailable Helio PUBLIC HEALTH PROGRAM MANAGER, Evelia Primary Care Unavailable Sabra, Nilam Primary Care Unavailable Callaway, Nilam Attending Unavailable Callaway, Nilam Referring Unavailable Helio PUBLIC HEALTH PROGRAM MANAGER, Evelia Primary Care Unavailable Ungerer, Alejandra Attending Unavailable Helio PUBLIC HEALTH PROGRAM MANAGER, Evelia Referring Unavailable Ungerer, Alejandra Attending Unavailable Helio PUBLIC HEALTH PROGRAM MANAGER, Evelia Referring Unavailable Helio PUBLIC HEALTH PROGRAM MANAGER, Evelia Primary Care Unavailable Allergies Allergy Classification Reported Allergen(s) Allergy Type Date of Onset Reaction(s) Facility Opioid Agonists (5 sources) Codeine; Translations: [codeine] Drug Allergy 2 Rash [facility] Penicillins (antibiotic) (5 sources) Penicillins; Translations: [Penicillins] Drug Allergy 2 Rash, Other (See Comments) [facility] (20 sources) codeine; Translations: [CODEINE] Drug Allergy 2 Rash, Other: See Comments [facility] Repository Comment on above: seizures (20 sources) Penicillins; Translations: [PENICILLINS] Propensity to adverse reactions to drug (disorder) 2 Rash, Other (See Comments), Hives, Other: See Comments [facility] Repository Comment on above: seizures (1 source) Seasonal allergy; Translations: [SEASONAL ALLERGIES] Propensity to adverse reactions (disorder) 6 AOF [facility] Repository (12 sources) Seasonal allergy Propensity to adverse reactions to substance 6 Rash, Other (See Comments) [facility] Work Phone: (7 sources) Penicillin Drug Allergy Unknown, Hives [facility] (10 sources) *Seasonal Propensity to adverse reactions to substance 6 [facility] (4 sources) Seasonal Allergies: Uncoded; Translations: [Seasonal Allergies: Uncoded] Allergy to substance 5 Other [facility] (1 source) Penicillins Drug allergy (disorder) [facility] Repository Medications Current Medications Medication Drug Class(es) Dates Sig (Normalized) Sig (Original) [id number] 200 actuat albuterol 0.09 mg/actuat metered dose inhaler (4 sources) beta2-Adrenergic Agonist Start: 05-13-2025 Albuterol Sulfate (Ventolin Hfa) 90 mcg/actuation HFA aerosol inhaler Active 2 NMA INHALATION EVERY 6 HOURS as needed for shortness of breath or wheezing 8.5 0 May 13, 2025 12:00am Start: 10-23-2018 take 2 puff(s) by mo uth every four hours for wheezing albuterol sulfate HFA (VENTOLIN HFA) 108 (90 Base) MCG/ACT inhaler Indications: Mild intermittent asthma without complication , Cough inhale 2 puffs by mouth every 4 hours if needed for wheezing 18 g 3 10/23/2018 Active Start: 03-19-2015 albuterol 108 (90 Base) MCG/ACT inhaler Inhale 2 puffs in the morning and 2 puffs at noon and 2 puffs in the evening and 2 puffs before bedtime. 0 03/19/2015 Active allergy shots (3 sources) Start: 04-28-2025 allergy shots Active SC .weekly April 28, 2025 12:00am [facility] seasonal allergies Start: 04-28-2025 allergy shots Active SC .weekly April 28, 2025 12:00am aspirin/sod bicarb/citric acid (MAYRA-SELTZER ORAL) (3 sources) aspirin/sod bicarb/citric acid (MAYRA-SELTZER ORAL) Take by mouth as needed. Active Calcium Carbonate (3 sources) calcium carbonat e (TUMS ORAL) Take by mouth as needed. Active cetirizine hydrochloride 10 mg oral tablet (9 sources) Histamine-1 Receptor Antagonist Start: take 1 tablet by mouth once daily as needed Cetirizine (Zyrtec) 10 mg tablet Active 10 mg PO daily as needed April 28, 2025 12:00am cholecalciferol 0.01 mg oral tablet (3 sources) Vitamin D End: take 1 tablet by mouth once daily vitamin D3 (CHOLECALCIFEROL) 10 MCG (400 UNIT) TABS tablet Take 400 Units by mouth daily 0 02/12/2022 Discontinued (LIST CLEANUP) ciprofloxacin 2 mg/ml / hydrocortisone 10 mg/ml otic suspension (3 sources) Corticosteroid, Quinolone Antimicrobial Start: End: ciprofloxacin-hydroc ortisone (Cipro HC) 0.2-1 % Suspension Indications: Diffuse otitis externa of right ear, unspecified chronicity 3 drops by Otic route 2 times daily. Instill in affected ear(s) as directed. 10 mL 0 05/05/2023 Active diphenhydrAMINE-APAP, sleep, (TYLENOL PM EXTRA STRENGTH PO) (4 sources) diphenhydrAMINE- APAP , sleep, (TYLENOL PM EXTRA STRENGTH PO) Take by mouth as needed 0 Active doxycycline hyclate 100 mg oral capsule (3 sources) Tetracycline-class Drug Start: End: take 1 capsule by mouth in the morning doxycycline (Vibramycin) 100 MG capsule Take 100 mg by mouth in the morning and 100 mg before bedtime. 0 03/28/2022 Active Comment on above: Avoid prolonged or e xcessive exposure to direct and/or artificial sunlight while taking this medication.Do not take this drug if you are .Finish all this medication unless otherwise directed by prescriber.Medication should be taken with plenty of water. Elastic Bandages & Supports (KNEE COMPRESSION SLEEVE/S/M) MISC (1 source) Start: Elastic Bandages & Supports (KNEE COMPRESSION SLEEVE/S/M) [facility] Indications: Acute pain of right knee 1 each by Does not apply route daily as needed (right knee pain) 1 each 0 10/25/2019 Active fluconazole 150 mg oral tablet (6 sources) Azole Antifungal Start: End: fluconazole (Diflucan) 150 MG tablet Take one tablet by mouth and if symptoms (itching) still present in 72 hours repeat. 0 07/26/2022 Active fluocinolone acetonide 0.1 mg/ml otic solution (2 sources) Corticosteroid Start: fluocinolone (DermOtic) 0.01 % ear drops INSTILL 5 DROPS IN EAR(S) TWICE DAILY UP TO 7-14 DAYS, THEN TAKE AT LEAST A WEEK OFF 0 11/17/2021 Active Start: 11-03-2021 End: 02-12-2022 fluocinolone (DERMOTIC) 0.01 % OIL oil Indications: Eczema of external ear, bilateral Place 5 drops in ear(s) 2 times daily Use up to 7-14 days then take at least a week off 20 mL 1 11/03/2021 02/12/2022 Discontinued (LIST CLEANUP) fluticasone propionate 0.05 mg/actuat metered dose nasal spray (15 sources) Corticosteroid Start: 04-28-2025 Fluticasone Pr opionate 50 mcg/actuation spray,suspension Active NMA INTRANASAL April 28, 2025 12:00am Start: 04-11-2023 End: 05-05-2023 fluticasone 50 MCG/ACT Suspe nsion nasal spray Indications: Environmental and seasonal allergies 2 sprays by Nasal route daily. 15.8 mL 3 05/05/2023 Active Start: 07-04-2022 take 2 spray(s) nasa l route once daily fluticasone (Flonase) 50 MCG/ACT nasal spray USE 2 SPRAY(S) IN EACH NOSTRIL ONCE DAILY 0 07/04/2022 Active Start: 07-04-2022 take 2 spray(s) nasa l route in the morning fluticasone (Flonase) 50 MCG/ACT nasal spray Administer 2 sprays into affected nostril(s) in the morning. 0 07/04/2022 Active Start: 07-04-2022 End: 11-28-2022 fluticasone 50 MCG/ACT Suspe nsion nasal spray Indications: Otalgia of both ears 2 sprays by Nasal route daily. 15.8 mL 1 07/04/2022 11/28/2022 Discontinued (None (suppress cancel msg)) Start: 09-10-2021 End: 02-12-2022 take 1 spray(s) nasal route once daily fluticasone (FLONASE) 50 MCG/ACT nasal spray Indications: Non-seasonal allergic rhinitis, unspecified trigger 1 spray by Each Nostril route daily 16 g 3 09/10/2021 02/12/2022 Discontinued (LIST CLEANUP) fluticasone prop ionate (FLONASE NASAL) Use in the nose as needed. Active gabapentin 100 mg oral capsule (4 sources) Anti-epileptic Agent Start: 03-03-2020 End: 08-30-2020 gabapentin (NEURONTIN) 100 MG capsule Take 1 capsule by mouth 3 times daily for 180 days. Intended supply: 30 days 90 capsule 5 03/03/2020 08/30/2020 Active hydrOXYzine hydrochloride 25 mg oral tablet (10 sources) Antihistamine Start: 11-08-2021 End: 02-12-2022 take 1 tablet by mouth twice daily as needed for anxiety hydrOXYzine HCl (Atarax) 25 MG tablet TAKE 1 TABLET BY MOUTH TWICE DAILY NEEDED FOR ANXIETY. DO NOT DRINK ALCOHOL, DRIVE OR OPERATE HEAVY MACHINERY WHILE TAKING. 0 11/08/2021 Active Start: 04-28-2021 take 1 tablet by karie twice daily as needed for anxiety hydrOXYzine (ATARAX) 25 MG tablet TAKE 1 TABLET BY MOUTH TWICE DAILY NEEDED FOR ANXIETY UP TO FOR 14 DAYS 30 tablet 3 04/28/2021 Active Atarax TABS Fantasma tity: 0 Refills: 0 Ordered: 11-Jun-2021 DO Active Lactobacillus acidophilus (3 sources) Lactobacillus ac idophilus (PROBIOTIC ACIDOPHILUS ORAL) Take by mouth once daily. Active levonorgestrel 0.113113 mg/hr intrauterine system (8 sources) Progestin, Progestin-containing Intrauterine Device levonorgestrel (Inga na, 52 MG,) 20 MCG/DAY IUD by IntraUTERine route. 0 Active levonorgestrel ( MIRENA, 52 MG,) IUD 52 mg by Intrauterine route 0 Active Magic Mouthwash (MIRACLE MOUTHWASH) (1 source) Start: 07-19-2021 End: 02-12-2022 Magic Mouthwash (MIRACLE MOUTHWASH) Indications: Strep throat Swish and spit 5 mLs 4 times daily as needed for Irritation 1:1:1 maalox, benadryl, and lidocaine 480 mL 1 07/19/2021 02/12/2022 Discontinued (LIST CLEANUP) meloxicam 15 mg oral tablet (2 sources) Nonsteroidal Anti-inflammatory Drug Start: 03-10-2025 End: 04-09-2025 take 1 tablet by mouth once daily meloxicam (MOBIC) 15 mg tablet Take 1 tablet by mouth once daily. 30 tablet 1 03/10/2025 04/09/2025 Active metroNIDAZOLE 500 mg oral tablet (1 source) Nitroimidazole Antimicrobial Start: 05-13-2022 take 1 tablet by mouth in the morning metroNIDAZOLE (Flagyl) 500 MG tablet Take 500 mg by mouth in the morning and 500 mg before bedtime. 0 05/13/2022 Active Multiple Vitamins-Minerals (MULTIVITAMIN ADULTS PO) (7 sources) End: 02-12-2022 Multiple Vitamins-Minerals (MULTIVITAMIN ADULTS PO) Take by mouth 0 02/12/2022 Discontinued (LIST CLEANUP) Multiple Vitamin s-Minerals (MULTIVITAMIN ADULTS PO) Take by mouth 0 Active Multivitamin (Daily Multi-Vitamin) tablet (5 sources) Start: 11-26-2023 Multivitamin ( Daily Multi-Vitamin) tablet Active 1 {tbl} PO DAILY November 26, 2023 1:00am Start: 11-26-2023 take 1 tablet by karie th once daily Multivitamin (Daily Multi-Vitamin) tablet Active 1 TABLET PO DAILY November 26, 2023 1:00am Start: 11-26-2023 take 1 tablet by karie th once daily Multivitamin (Daily Multi-Vitamin) tablet Active 1 TABLET PO DAILY November 26, 2023 12:00am naproxen 500 mg oral tablet (8 sources) Nonsteroidal Anti-inflammatory Drug Start: 11-26-2023 take 1 tablet by mouth twice daily Naproxen 500 mg tablet Active 500 mg PO TWICE A DAY 14 0 November 26, 2023 1:00am Start: 10-10-2022 End: 11-28-2022 take 1 tablet by mouth twice daily at mealtime naproxen 500 MG tablet Indications: TMJ (dislocation of temporomandibular joint), initial encounter Take 1 tablet by mouth 2 times daily with meals. 60 tablet 1 10/10/2022 11/28/2022 Discontinued (None (suppress cancel msg)) Start: 10-25-2019 take 2 tablets by mo [facility] twice daily at mealtime naproxen (NAPROSYN) 250 MG tablet Indications: Acute pain of right knee Take 2 tablets by mouth 2 times daily (with meals) 180 tablet 1 10/25/2019 Active nitrofurantoin, macrocrystals 25 mg / nitrofurantoin, monohydrate 75 mg oral capsule (6 sources) Nitrofuran Antibacterial Start: 06-30-2025 take 1 capsule by mouth every twelve hours at mealtime Nitrofurantoin Monohyd/M-Cryst (Macrobid) 100 mg capsule Active 100 mg PO Q12H 10 5 0 June 30, 2025 12:00am July 04, 2025 12:00am must administer with a meal/food Start: 01-11-2024 End: 01-18-2024 take 1 capsule by mouth every twelve hours at mealtime Nitrofurantoin Monohyd/M-Cryst 100 mg capsule Discontinued 1 NMA PO Q12H 14 7 0 January 11, 2024 1:00am January 17, 2024 12:00am January 18, 2024 12:05am administer with a meal/food; swallow whole; do not open, crush, dissolve , or chew [place]-3 Fatty Acids (FISH OI L PO) (6 sources) End: 02-12-2022 [place]-3 Fatty Acids (FISH OI L PO) Take by mouth 0 02/12/2022 Discontinued (LIST CLEANUP) [place]-3 Fatty Ac ids (FISH OIL PO) Take by mouth 0 Active phenazopyridine hydrochloride 100 mg oral tablet (2 sources) Start: 06-30-2025 take 1 tablet by mouth three times daily as needed for pain Phenazopyridine (Pyridium) 100 mg tablet Active 100 mg PO THREE TIMES A DAY as needed for pain 6 0 June 30, 2025 12:00am raNITIdine 150 mg oral tablet (1 source) Histamine-2 Receptor Antagonist Start: 04-09-2019 take 1 tablet by mouth twice daily ranitidine (ZANTAC) 150 MG tablet Take 1 tablet by mouth 2 times daily 60 tablet 3 04/09/2019 Active sertraline 50 mg oral tablet (12 sources) Serotonin Reuptake Inhibitor Start: 06-01-2021 End: 02-12-2022 take 1 tablet by mouth in the morning sertraline (Zoloft) 50 MG tablet Take 50 mg by mouth in the morning. 0 02/07/2022 Active Start: 05-05-2021 take 1 tablet by karie once daily sertraline (ZOLOFT) 50 MG tablet Take 1 tablet by mouth daily 30 tablet 1 05/05/2021 Active Start: 04-16-2021 take 1 tablet by karie th in the morning sertraline (Zoloft) 25 MG tablet Take 25 mg by mouth in the morning. 0 04/17/2021 Active Zoloft TABS Fantasma tity: 0 Refills: 0 Ordered: 11-Jun-2021 DO Active triamcinolone acetonide 0.005 mg/mg topical ointment (3 sources) Corticosteroid Start: 04-28-2025 Triamcinolone Acetonide 0.5 % ointment Active 1 NMA TOPICAL THREE TIMES A DAY as needed for itching 15 April 28, 2025 12:00am Atopic dermatitis in adult Atopic dermatitis, unspecified Completed/Discontinued Medications Medication Drug Class(es) Dates Sig (Normalized) Sig (Original) benzonatate 100 mg oral capsule (2 sources) Non-narcotic Antitussive Start: 09-13-2022 End: 11-28-2022 take 1-2 capsules by mouth three times daily as needed for cough benzonatate 100 MG capsule Take 1-2 capsules by mouth 3 times daily as needed for Cough. 30 capsule 0 09/13/2022 11/28/2022 Discontinued (None (suppress cancel msg)) cefdinir 300 mg oral capsule (5 sources) Cephalosporin Antibacterial Start: 01-15-2022 End: 01-24-2022 take 1 capsule by mouth twice daily cefdinir 300 mg oral capsule ; 1 cap(s) orally 2 times a day Quantity: 20 Refills: 0 Ordered: 15-Jan-2022 Monica Garcia Start: 15-Jan-2022 End: 24-Jan-2022 Generic Substitution Allowed Comments: Finish all this medication unless otherwise directed by prescriber. Comment on above: Finish all this medi cation unless otherwise directed by prescriber. ciprofloxacin 3 mg/ml / dexamethasone 1 mg/ml otic suspension (3 sources) Corticosteroid, Quinolone Antimicrobial Start: 04-28-2025 End: 05-05-2025 Ciprofloxacin-Dexam ethasone 0.3-0.1 % drops,suspension Discontinued 4 NMA OTIC TWICE A DAY 7.5 7 0 April 28, 2025 12:00am May 04, 2025 12:00am May 05, 2025 12:06am Otitis externa Unspecified otitis externa, unspecified ear clobetasol propionate 0.0005 mg/mg topical ointment (7 sources) Corticosteroid Start: 06-11-2021 Clobetasol Propionate 0.05 % External Ointment APPLY SPARINGLY TO AFFECTED AREA(S) TWICE DAILY for 14 days Quantity: 1 Refills: 0 Ordered: 11-Jun-2021 Elisabeth Mathis MD Start : 11-Jun-2021 Active cyclobenzaprine hydrochloride 10 mg oral tablet (5 sources) Muscle Relaxant Start: 11-26-2023 End: 08-04-2024 take 1 tablet by mouth three times daily as needed for muscle spasms Cyclobenzaprine 10 mg tablet Discontinued 10 mg PO THREE TIMES A DAY as needed for Muscle Spasm 15 5 0 November 26, 2023 1:00am August 04, 2024 4:20pm docusate sodium 100 mg oral capsule (2 sources) Start: 09-28-2022 End: 11-28-2022 take 1 capsule by mouth twice daily docusate (Colace) 100 MG capsule Indications: Constipation, unspecified constipation type Take 1 capsule by mouth 2 times daily. 60 capsule 0 09/28/2022 11/28/2022 Discontinued (None (suppress cancel msg)) FLUoxetine 10 mg oral capsule (13 sources) Serotonin Reuptake Inhibitor Start: 11-26-2023 End: 04-28-2025 take 1 capsule by mouth once daily Fluoxetine (Prozac) 10 mg capsule Discontinued 10 mg PO DAILY November 26, 2023 1:00am April 28, 2025 11:11am Start: 03-22-2023 End: 05-05-2023 take 2 capsules by mouth once daily FLUoxetine 10 MG capsule Indications: Chronic posttraumatic stress disorder Take 2 capsules by mouth daily. 60 capsule 3 05/05/2023 Active Start: 10-10-2022 End: 01-23-2023 take 1 capsule by mouth once daily FLUoxetine 10 MG capsule Indications: Chronic posttraumatic stress disorder Take 1 capsule by mouth daily. 30 capsule 1 01/23/2023 Active hydrocortisone 10 mg/ml / neomycin 3.5 mg/ml / polymyxin b 07186 unt/ml otic suspension (7 sources) Aminoglycoside Antibacterial, Polymyxin-class Antibacterial, Corticosteroid Start: 01-11-2024 End: 01-21-2024 Jtnpbkjm-Zyxjlcwbm-Zt 3.5-10,000-1 mg/mL-unit/mL-% drops,suspension Discontinued 3 NMA OTIC Q4H 10 10 0 January 11, 2024 1:00am January 20, 2024 12:00am January 21, 2024 12:04am apply to (cotton) wick; replace wick every 24 hours Start: 01-11-2024 Neomycin-Polym yxin-Hc Active 3 DRP OTIC Q4H 10 10 January 11, 2024 1:00am apply to (cotton) wick; replace wick every 24 hours Start: 10-10-2022 End: 11-28-2022 [id number]-[id number] isone 3.5-69418-9 Suspension Indications: Chronic diffuse otitis externa of both ears 4 drops by Both Ears route 4 times daily. 2 mL 0 10/10/2022 11/28/2022 Discontinued (None (suppress cancel msg)) Start: 03-28-2022 neomycin-polym yxin-hydrocortisone (Cortisporin) 3.5-68927-9 otic suspension INSTILL 4 DROPS INTO EACH EAR THREE TIMES DAILY FOR 10 DAYS 0 03/28/2022 Active lidocaine 0.05 mg/mg medicated patch (5 sources) Antiarrhythmic, Amide Local Anesthetic Start: 11-26-2021 End: 12-02-2021 Lidoderm 5% topical film ; Apply topically to affected area once a day Quantity: 7 Refills: 0 Ordered: 26-Nov-2021 Connie Rivero Start: 26-Nov-2021 End: 02-Dec-2021 Generic Substitution Allowed Comments: For external use only.Remove old patch prior to applying a new patch. Comment on above: For external use onl y.Remove old patch prior to applying a new patch. loratadine 10 mg oral tablet (13 sources) Start: 11-26-2023 End: 08-04-2024 take 1 tablet by mouth once daily Loratadine (Allerclear) 10 mg tablet Discontinued 10 mg PO DAILY November 26, 2023 1:00am August 04, 2024 4:20pm Start: 07-04-2022 End: 05-05-2023 take 1 tablet by mouth once daily Loratadine (Claritin) 10 MG tablet Indications: Environmental and seasonal allergies Take 1 tablet by mouth daily. 30 tablet 3 05/05/2023 Active melatonin 5 mg oral capsule (3 sources) Start: 08-04-2024 End: 04-28-2025 take 1 capsule by mouth once daily as needed for sleep Melatonin 5 mg capsule Discontinued 5 mg PO DAILY as needed for sleep August 04, 2024 12:00am April 28, 2025 11:11am miconazole nitrate 20 mg/ml vaginal cream (4 sources) Azole Antifungal Start: 01-11-2024 End: 01-18-2024 Miconazole Nitrate (Monistat 7) 2 % cream Discontinued 1 NMA VAGINAL AT BEDTIME 45 7 0 January 11, 2024 1:00am January 17, 2024 12:00am January 18, 2024 12:05am Start: 01-11-2024 Miconazole Nit rate (Monistat 7) 2 % cream Active 1 APPFUL VAGINAL AT BEDTIME 45 7 January 11, 2024 1:00am mometasone furoate 0.001 mg/mg topical ointment (3 sources) Corticosteroid Start: 10-23-2024 End: 04-28-2025 Mometasone 0.1 % ointment Discontinued 1 NMA TOPICAL .COMPLEX 15 2 October 23, 2024 1:00am April 28, 2025 11:11am 1 applic topical small amount as directed and rub in bid X 2 weeks, daily X 2 weeks then prn; omeprazole 20 mg delayed release oral capsule (8 sources) Proton Pump Inhibitor Start: 06-11-2021 End: 02-12-2022 take 1 capsule by mouth twice daily Omeprazole 20 MG Oral Capsule Delayed Release TAKE 1 CAPSULE TWICE DAILY. Quantity: 60 Refills: 0 Ordered: 12-Aug-2021 Elisabeth Mathis MD Start : 11-Jun-2021 Active ondansetron 4 mg disintegrating oral tablet (6 sources) Serotonin-3 Receptor Antagonist Start: 09-13-2022 End: 11-28-2022 take 1 tablet by mouth every eight hours as needed ondansetron 4 MG Tab Dispersible tablet Take 1 tablet by mouth every 8 hours as needed for Nausea / Vomiting. 12 tablet 0 09/13/2022 11/28/2022 Discontinued (None (suppress cancel msg)) Start: 03-13-2022 take 1 tablet by karie th every eight hours ondansetron 4 mg oral tablet ; 1 tab(s) orally every 8 hours as needed for nausea Quantity: 9 Refills: 0 Ordered: 13-Mar-2022 Susan Galvez Start: 13-Mar-2022 Generic Substitution Allowed Start: 04-09-2019 take 1 tablet by karie th three times daily as needed for nausea ondansetron (ZOFRAN) 4 MG tablet Take 1 tablet by mouth 3 times daily as needed for Nausea or Vomiting 30 tablet 0 04/09/2019 Active polyethylene glycol 3350 03181 mg powder for oral solution (9 sources) Osmotic Laxative Start: 09-28-2022 End: 11-28-2022 polyethylene glycol (MiraLax) 17 GM/SCOOP Powder powder Indications: Constipation, unspecified constipation type Take 17 g by mouth daily. 578 g 0 09/28/2022 11/28/2022 Discontinued (None (suppress cancel msg)) MiraLax 17 GM Or al Packet Quantity: 0 Refills: 0 Ordered: 11-Jun-2021 DO Active NEGATED: Highlighted row has not occurred!No Current Medications (1 source) No Current Medic ations Problems Active Problems Problem Classification Problem Date Documented Da te Episodic/Chronic Abdominal pain (16 sources) Flank pain; Translations: [Unspecified abdominal pain] Onset: 7 Resolved: 1 06-29-2017 Episodic Adjustment disorders (1 source) Stress and adjustment reaction; Translations: [Adjustment disorder with other symptoms] Chronic Administrative/social admission (1 source) Food insecurity; Translations: [Food insecurity] Episodic Allergic reactions (7 sources) Adult atopic dermatitis; Translations: [Atopic dermatitis, unspecified] Onset: 5 04-28-2025 Chronic Allergic reactions (1 source) Allergy status to penicillin; Translations: [Allergy status to penicillin] Onset: 2 Episodic Anxiety disorders (18 sources) Panic attack; Translations: [Panic disorder [episodic paroxysmal anxiety]] Onset: 1 Chronic Conditions associated with dizziness or vertigo (2 sources) Conditions associated with dizziness or vertigo 04-14-2021 Comment on above: DIZZINESS, WEAKNESS Contraceptive and procreative management (1 source) Contraception status; Translations: [Encounter for other general counseling and advice on contraception] Episodic Disorders of teeth and jaw (7 sources) Temporomandibular townv-tnkd-ftexggcocct syndrome; Translations: [Other specified temporomandibular joint disorders] Episodic E Codes: Fall (2 sources) Fall 11-26-2021 Comment on above: FALL Epilepsy; convulsions (1 source) Epilepsy, unspecified, not intractable, without status epilepticus; Translations: [Epilepsy, unsp, not intractable, without status epilepticus] Onset: 2 Chronic Epilepsy; convulsions (12 sources) Seizure; Translations: [Unspecified convulsions] Onset: 1 Resolved: 1 04-23-2021 Episodic Esophageal disorders (8 sources) Gastroesophageal reflux disease; Translations: [Esophageal reflux] Onset: 5 Chronic Fever of unknown origin (2 sources) Fever, unspecified; Translations: [Fever, unspecified] Onset: 2 Episodic Genitourinary symptoms and ill-defined conditions (7 sources) Dysuria; Translations: [Dysuria] Onset: 3 01-12-2024 Episodic Lymphadenitis (1 source) Lymphadenopathy of head AND/OR neck; Translations: [Localized enlarged lymph nodes] Episodic Menstrual disorders (1 source) Missed period; Translations: [Missed periods] Chronic Miscellaneous mental health disorders (4 sources) Dissociative convulsions; Translations: [Conversion disorder with seizures or convulsions] Onset: 1 09-13-2021 Chronic Mycoses (2 sources) Candidiasis of vagina; Translations: [Candidiasis of vulva and vagina] Episodic Nausea and vomiting (5 sources) Nausea; Translations: [Nausea] Onset: 2 Episodic Nonmalignant breast conditions (1 source) Breast lump; Translations: [Mass overlapping multiple quadrants of right breast] Episodic Osteoarthritis (5 sources) Arthritis of left foot; Translations: [Primary osteoarthritis, left ankle and foot] Onset: 5 03-10-2025 Chronic Other connective tissue disease (3 sources) Plantar fasciitis of left foot; Translations: [Plantar fascial fibromatosis] 08-12-2024 Episodic Other connective tissue disease (3 sources) Foot pain; Translations: [Pain in left foot] 08-12-2024 Episodic Other ear and sense organ disorders (7 sources) Sensorineural hearing loss, bilateral; Translations: [Sensorineural hearing loss, bilateral] Chronic Other ear and sense organ disorders (8 sources) Otitis externa; Translations: [Unspecified otitis externa, unspecified ear] Onset: 1 09-13-2021 Chronic Other ear and sense organ disorders (1 source) Unspecified otitis externa, unspecified ear; Translations: [Unspecified otitis externa, unspecified ear] Onset: 5 Chronic Other ear and sense organ disorders (7 sources) Disorder of external ear; Translations: [Other acute otitis externa] Episodic Other ear and sense organ disorders (3 sources) Dermatitis of external auditory canal; Translations: [Other acute otitis externa] Episodic Other ear and sense organ disorders (1 source) Bilateral external auditory canal chronic otitis externa; Translations: [Diffuse otitis externa, bilateral] Episodic Other ear and sense organ disorders (4 sources) Diffuse otitis externa, right ear; Translations: [Infective otitis externa, unspecified] Onset: 3 Episodic Other ear and sense organ disorders (1 source) Acute otitis externa; Translations: [Diffuse otitis externa, bilateral] 01-12-2024 Episodic Other ear and sense organ disorders (1 source) Diffuse otitis externa, bilateral; Translations: [Infective otitis externa, unspecified] 01-11-2024 Episodic Other female genital disorders (1 source) Vaginal odor; Translations: [Other specified noninflammatory disorders of vagina] Episodic Other female genital disorders (1 source) Mucous retention cyst of cervix uteri; Translations: [Other specified noninflammatory disorders of cervix uteri] Episodic Other female genital disorders (2 sources) Pruritus of vagina; Translations: [Other specified noninflammatory disorders of vagina] Episodic Other gastrointestinal disorders (1 source) Dark stools; Translations: [Dark stools] Episodic Other gastrointestinal disorders (1 source) Other fecal abnormalities; Translations: [Other fecal abnormalities] Onset: 2 Episodic Other infections; including parasitic (2 sources) Lyme disease; Translations: [Lyme Disease] 03-27-2022 Episodic Other infections; including parasitic (1 source) Erythema chronica migrans; Translations: [Lyme Disease] 03-27-2022 Episodic Other non-traumatic joint disorders (1 source) Joint pain; Translations: [Arthralgia, unspecified joint] Episodic Other non-traumatic joint disorders (4 sources) Pain in right knee; Translations: [Knee pain, right] Onset: 9 10-25-2019 Other nutritional; endocrine; and metabolic disorders (1 source) Weight loss; Translations: [Abnormal weight loss] Episodic Other nutritional; endocrine; and metabolic disorders (1 source) Increased thirst; Translations: [Polydipsia] Episodic Other screening for suspected conditions (not mental disorders or infectious disease) (2 sources) Encounter for screening for cardiovascular disorders; Translations: [Encounter for screening for malignant neoplasm of cervix] Onset: 5 Episodic Other upper respiratory disease (10 sources) Allergic rhinitis; Translations: [Other allergic rhinitis] Onset: 1 09-13-2021 Chronic Other upper respiratory disease (1 source) Allergic disposition; Translations: [Other allergic rhinitis] 05-05-2023 Chronic Otitis media and related conditions (5 sources) Otitis media and related conditions 01-15-2022 Comment on above: B/L EAR INFECTION Residual codes; unclassified (2 sources) Altered mental status; Translations: [Altered mental status] 04-14-2021 Episodic Residual codes; unclassified (1 source) Intolerance to drug; Translations: [Other specified health status] Episodic Residual codes; unclassified (1 source) History of being in foster care; Translations: [Other specified personal risk factors, not elsewhere classified] Episodic Residual codes; unclassified (1 source) Pain; Translations: [Pain, unspecified] 03-10-2025 Episodic Residual codes; unclassified (1 source) Pain, unspecified; Translations: [Pain] Onset: 5 Episodic Rheumatoid arthritis and related disease (1 source) Rheumatoid arthritis, unspecified; Translations: [Rheumatoid arthritis, unspecified] Onset: 5 Chronic Spondylosis; intervertebral disc disorders; other back problems (1 source) Backache; Translations: [Backache, unspecified] Episodic Sprains and strains (5 sources) Injury of groin; Translations: [Strain of adductor muscle, fascia and tendon of right thigh, initial encounter] 11-26-2023 Episodic Substance-related disorders (1 source) Nicotine dependence, unspecified, uncomplicated; Translations: [Nicotine dependence, unspecified, uncomplicated] Onset: 2 Chronic Unclassified (2 sources) FALL ON ICE, HIP AND FOOT PAIN 11-25-2021 Comment on above: FALL ON ICE, HIP AND FOOT PAIN Unclassified (1 source) Acute URI 01-15-2022 Unclassified (2 sources) GALLBLADDER ISSUES 03-13-2022 Comment on above: GALLBLADDER ISSUES Unclassified (2 sources) TICK BITE TODAY, NOW HAS NAUSEA 03-26-2022 Comment on above: TICK BITE TODAY, NOW HAS NAUSEA Unclassified (1 source) Erythema migrans (Lyme disease) 03-27-2022 Unclassified (1 source) LOWER ABD PAIN 09-10-2022 Comment on above: LOWER ABD PAIN Unclassified (2 sources) Cough, unspecified; Translations: [Cough, unspecified] Onset: 2 Urinary tract infections (2 sources) Urinary tract infectious disease; Translations: [Urinary tract infection, site not specified] 06-30-2025 Episodic Viral infection (1 source) Disease caused by 2018-nCoV; Translations: [Other specified viral infection] 09-10-2022 Episodic Viral infection (3 sources) Disease caused by 2019-nCoV; Translations: [COVID-19] Onset: 2 09-10-2022 Comment on above: LOWER ABD PAIN Past or Other Problems Problem Classification Problem Date Documented Date Episodic/Chronic Calculus of urinary tract (9 sources) Kidney stone; Translations: [Calculus of kidney] Onset: 06-29-2017 06-29-2017 Episodic Joint disorders and dislocations; trauma-related (9 sources) Dislocation of temporomandibular joint; Translations: [Dislocation of jaw, unspecified side, initial encounter] Onset: 04-07-2015 06-06-2022 Episodic Mood disorders (10 sources) Mood disorders Onset: 05-02-2022 Resolved: 05-05-2023 05-02-2022 Other connective tissue disease (2 sources) Other specified soft tissue disorders; Translations: [Other specified soft tissue disorders] Onset: 07-10-2022 Episodic Other connective tissue disease (2 sources) Pain in left foot; Translations: [Pain in left foot] Onset: 07-10-2022 Episodic Other ear and sense organ disorders (18 sources) Bilateral earache; Translations: [Otalgia, unspecified] Onset: 09-13-2021 09-13-2021 Episodic Other ear and sense organ disorders (2 sources) Eczema of external auditory canal; Translations: [Acute eczematoid otitis externa, bilateral] Onset: 09-13-2021 09-13-2021 Episodic Other ear and sense organ disorders (1 source) Otalgia, bilateral; Translations: [Otalgia, bilateral] Onset: 01-15-2022 Episodic Other infections; including parasitic (1 source) Lyme disease, unspecified; Translations: [Lyme disease, unspecified] Onset: 03-27-2022 Episodic Other injuries and conditions due to external causes (1 source) Other injury of unspecified body region, initial encounter; Translations: [Other injury of unspecified body region, initial encounter] Onset: 03-27-2022 Episodic Other non-traumatic joint disorders (4 sources) Pain in right knee; Translations: [Pain in right knee] Onset: 10-25-2019 Resolved: 09-13-2021 10-25-2019 Episodic Other non-traumatic joint disorders (1 source) Knee pain Episodic Other screening for suspected conditions (not mental disorders or infectious disease) (2 sources) MRI scan abnormal; Translations: [Abnormal findings on diagnostic imaging of other specified body structures] Onset: 04-23-2021 Resolved: 09-13-2021 04-23-2021 Chronic Other skin disorders (1 source) Rash and other nonspecific skin eruption; Translations: [Rash and other nonspecific skin eruption] Onset: 03-27-2022 Episodic Other upper respiratory disease (1 source) Nasal congestion; Translations: [Nasal congestion] Onset: 01-15-2022 Episodic Other upper respiratory disease (1 source) Epistaxis; Translations: [Epistaxis] Onset: 01-15-2022 Episodic Other upper respiratory infections (4 sources) Acute sinusitis; Translations: [Acute upper respiratory infection] Onset: 01-15-2022 01-15-2022 Episodic Comment on above: SINUS INFECTION Otitis media and related conditions (2 sources) Purulent otitis media; Translations: [Unspecified suppurative otitis media] Onset: 01-15-2022 01-15-2022 Episodic Residual codes; unclassified (8 sources) H/O: Disorder; Translations: [Personal history of other specified conditions] Onset: 06-06-2022 2 Episodic Residual codes; unclassified (1 source) Acquired absence of other specified parts of digestive tract; Translations: [Acquired absence of other specified parts of digestive tract] Onset: 03-13-2022 Episodic Results Test Name Value Interpretation Reference Range Facility FELICIA w/ Reflex Mult Confirmon 09-11-2025 ANTI-DNA (DS)AB TNP Normal [facility] Comment on above: Performed By: #### L 505.7010, L3100.5450, L100.0100, L4600.0100, L500.4050, L500.4100 #### [facility] [address] [place], [place], [id number] ANTI-SS-A TNP Normal [facility] Comment on above: Performed By: #### L 505.7010, L3100.5450, L100.0100, L4600.0100, L500.4050, L500.4100 #### [facility] [address] [place], [place], [id number] [phone] ANTI-SS-B TNP Normal [facility] Comment on above: Performed By: #### L 505.7010, L3100.5450, L100.0100, L4600.0100, L500.4050, L500.4100 #### [facility] [address] [place], [place], [id number] CCP IgG Antibodieson 025 CCP IgG Ab. 9 units Normal 0-19 [facility] Comment on above: Result Comment: Nega tive <20 Weak positive 20 - 39 Moderate positive 40 - 59 Strong positive >59 Performed at: [facility] [id number] Field Services Analyst: Matthew Rodriguez PhD, Phone: [phone] Performed By: #### L 505.7010, L3100.5450, L100.0100, L4600.0100, L500.4050, L500.4100 ####[facility] [address] [place], [address] CBC W/Diff, Automatedon 11-0 4-2025 Absolute Lymph 1.81 X10 3/uL Normal 0.83-4.51 [facility] Comment on above: Performed By: #### L 505.7010, L3100.5450, L100.0100, L4600.0100, L500.4050, L500.4100 ####[facility] [address] [place], [address] Absolute Neut 5.3 X10 3/uL Normal 2.0-7.7 [facility] Comment on above: Performed By: #### L 505.7010, L3100.5450, L100.0100, L4600.0100, L500.4050, L500.4100 ####[facility] [address] [place], [address] Basophils/100 WBC (Bld) 0.4 % Normal 0-1 [facility] Comment on above: Performed By: #### L 505.7010, L3100.5450, L100.0100, L4600.0100, L500.4050, L500.4100 ####[facility] [address] [place], [address] Eosinophils/100 WBC (Bld) 2.1 % Normal 0-5 [facility] Comment on above: Performed By: #### L 505.7010, L3100.5450, L100.0100, L4600.0100, L500.4050, L500.4100 ####[facility] [address] [place], [address] Erythrocyte distribution width (RBC) [Ratio] 13.1 % Normal 11.6-14.6 [facility] Comment on above: Performed By: #### L 505.7010, L3100.5450, L100.0100, L4600.0100, L500.4050, L500.4100 ####[facility] [address] [place], [address] Hematocrit (Bld) [Volume fraction] 41.1 % Normal 37-47 [facility] Comment on above: Performed By: #### L 505.7010, L3100.5450, L100.0100, L4600.0100, L500.4050, L500.4100 ####[facility] [address] [place], [address] Hemoglobin (Bld) [Mass/Vol] 14.0 g/dL Normal 12.0-15.0 [facility] Comment on above: Performed By: #### L 505.7010, L3100.5450, L100.0100, L4600.0100, L500.4050, L500.4100 ####[facility] [address] [place], [address] IG% 0.300 Normal 0.0-0.9 [facility] Comment on above: Result Comment: IG% - Immature Granulocytes (promyelocytes, myelocytes and metamyelocytes) > 1% indicates that a LEFT SHIFT is Present. Performed By: #### L 505.7010, L3100.5450, L100.0100, L4600.0100, L500.4050, L500.4100 ####[facility] [address] [place], [address] Lymphocytes/100 WBC (Bld) 23.9 % Normal 19-41 [facility] Comment on above: Performed By: #### L 505.7010, L3100.5450, L100.0100, L4600.0100, L500.4050, L500.4100 ####[facility] [address] [place], [address] MCH (RBC) [Entitic mass] 28.7 pg Normal 27.0-32.0 [facility] Comment on above: Performed By: #### L 505.7010, L3100.5450, L100.0100, L4600.0100, L500.4050, L500.4100 ####[facility] [address] [place], [address] MCHC (RBC) [Mass/Vol] 34.1 g/dL Normal 32-36 [facility] Comment on above: Performed By: #### L 505.7010, L3100.5450, L100.0100, L4600.0100, L500.4050, L500.4100 ####[facility] [address] [place], [address] MCV (RBC) [Entitic vol] 84.2 fL Normal 81-99 [facility] Comment on above: Performed By: #### L 505.7010, L3100.5450, L100.0100, L4600.0100, L500.4050, L500.4100 ####[facility] [address] [place], [address] Monocytes/100 WBC (Bld) 4.0 % Normal 0-10 [facility] Comment on above: Performed By: #### L 505.7010, L3100.5450, L100.0100, L4600.0100, L500.4050, L500.4100 ####[facility] [address] [place], [address] Neutrophils/100 WBC (Bld) 69.3 % Normal 47-70 [facility] Comment on above: Performed By: #### L 505.7010, L3100.5450, L100.0100, L4600.0100, L500.4050, L500.4100 ####[facility] [address] [place], [address] Nucleated RBC (Bld) [#/Vol] 0 10*3/uL Normal 0-5 [facility] Comment on above: Performed By: #### L 505.7010, L3100.5450, L100.0100, L4600.0100, L500.4050, L500.4100 ####[facility] [address] [place], [address] Platelet mean volume (Bld) [Entitic vol] 9.1 fL Normal 6.2-12.0 [facility] Comment on above: Performed By: #### L 505.7010, L3100.5450, L100.0100, L4600.0100, L500.4050, L500.4100 ####[facility] [address] [place], [address] Platelets (Bld) [#/Vol] 373 10*3/uL Normal 150-450 [facility] Comment on above: Performed By: #### L 505.7010, L3100.5450, L100.0100, L4600.0100, L500.4050, L500.4100 ####[facility] [address] [place], [address] RBC (Bld) [#/Vol] 4.88 10*6/uL Normal 4.2-5.4 [facility] Comment on above: Performed By: #### L 505.7010, L3100.5450, L100.0100, L4600.0100, L500.4050, L500.4100 ####[facility] [address] [place], [address] RDW SD 40.2 fl Normal 35.1-43.9 [facility] Comment on above: Performed By: #### L 505.7010, L3100.5450, L100.0100, L4600.0100, L500.4050, L500.4100 ####[facility] [address] [place], [address] WBC (Bld) [#/Vol] 7.6 10*3/uL Normal 4.4-11.0 [facility] Comment on above: Performed By: #### L 505.7010, L3100.5450, L100.0100, L4600.0100, L500.4050, L500.4100 ####[facility] [address] [place], [address] Comprehensive Metabolic Prof ilon 09-09-2025 Albumin [Mass/Vol] 4.6 g/dL Normal 3.5-5.0 [facility] Comment on above: Performed By: #### L 505.7010, L3100.5450, L100.0100, L4600.0100, L500.4050, L500.4100 ####[facility] [address] [place], [address] Albumin/Globulin [Mass ratio] 1.4 {ratio} Normal 0.9-2.4 [facility] Comment on above: Performed By: #### L 505.7010, L3100.5450, L100.0100, L4600.0100, L500.4050, L500.4100 ####[facility] [address] [place], [address] ALK PHOS 118 U/L High 35-104 [facility] Comment on above: Performed By: #### L 505.7010, L3100.5450, L100.0100, L4600.0100, L500.4050, L500.4100 ####[facility] [address] [place], [address] ALT [Catalytic activity/Vol] 19 U/L Normal <=34 [facility] Comment on above: Performed By: #### L 505.7010, L3100.5450, L100.0100, L4600.0100, L500.4050, L500.4100 ####[facility] [address] [place], [address] AST [Catalytic activity/Vol] 18 U/L Normal <=31 [facility] Comment on above: Performed By: #### L 505.7010, L3100.5450, L100.0100, L4600.0100, L500.4050, L500.4100 ####[facility] [address] [place], [address] Bilirubin [Mass/Vol] 0.41 mg/dL Normal 0.00-1.30 [facility] Comment on above: Performed By: #### L 505.7010, L3100.5450, L100.0100, L4600.0100, L500.4050, L500.4100 ####[facility] [address] [place], [address] BUN/CRE 11.8 RATIO Normal 10-20 [facility] Comment on above: Performed By: #### L 505.7010, L3100.5450, L100.0100, L4600.0100, L500.4050, L500.4100 ####[facility] [address] [place], [address] Calcium [Mass/Vol] 9.4 mg/dL Normal 7.6-11.0 [facility] Comment on above: Performed By: #### L 505.7010, L3100.5450, L100.0100, L4600.0100, L500.4050, L500.4100 ####[facility] [address] [place], [address] Chloride [Moles/Vol] 102 mmol/L Normal 98-108 [facility] Comment on above: Performed By: #### L 505.7010, L3100.5450, L100.0100, L4600.0100, L500.4050, L500.4100 ####[facility] [address] [place], [address] CO2 [Moles/Vol] 26.1 mmol/L Normal 21.0-32.0 [facility] Comment on above: Performed By: #### L 505.7010, L3100.5450, L100.0100, L4600.0100, L500.4050, L500.4100 ####[facility] [address] [place], [address] Creatinine [Mass/Vol] 0.63 mg/dL Low 0.70-1.20 [facility] Comment on above: Performed By: #### L 505.7010, L3100.5450, L100.0100, L4600.0100, L500.4050, L500.4100 ####[facility] [address] [place], [address] GAP 10 Normal 5-15 [facility] Comment on above: Performed By: #### L 505.7010, L3100.5450, L100.0100, L4600.0100, L500.4050, L500.4100 ####[facility] [address] [place], [address] GFR/1.73 sq M.predicted among non-blacks MDRD (S/P/Bld) [Vol rate/Area] 114 mL/min/{1.73_m2} Normal >60 [facility] Comment on above: Result Comment: mL/m in/1.73m2 CKD-EPI Creatinine Equation (2020) Performed By: #### L 505.7010, L3100.5450, L100.0100, L4600.0100, L500.4050, L500.4100 ####[facility] [address] [place], [address] Globulin (S) [Mass/Vol] 3.4 g/dL Normal 2.2-4.2 [facility] Comment on above: Performed By: #### L 505.7010, L3100.5450, L100.0100, L4600.0100, L500.4050, L500.4100 ####[facility] [address] [place], [address] Glucose [Mass/Vol] 99 mg/dL Normal 70-99 [facility] Comment on above: Performed By: #### L 505.7010, L3100.5450, L100.0100, L4600.0100, L500.4050, L500.4100 ####[facility] [address] [place], [address] Potassium [Moles/Vol] 4.1 mmol/L Normal 3.3-5.1 [facility] Comment on above: Performed By: #### L 505.7010, L3100.5450, L100.0100, L4600.0100, L500.4050, L500.4100 ####[facility] [address] [place], [address] Sodium [Moles/Vol] 138 mmol/L Normal 133-145 [facility] Comment on above: Performed By: #### L 505.7010, L3100.5450, L100.0100, L4600.0100, L500.4050, L500.4100 ####[facility] [address] [place], [address] T PROT 7.9 g/dL Normal 5.9-8.4 [facility] Comment on above: Performed By: #### L 505.7010, L3100.5450, L100.0100, L4600.0100, L500.4050, L500.4100 ####[facility] [address] [place], [address] Urea nitrogen [Mass/Vol] 7 mg/dL Normal 4-19 [facility] Comment on above: Performed By: #### L 505.7010, L3100.5450, L100.0100, L4600.0100, L500.4050, L500.4100 ####[facility] [address] [place], [address] Lipid Profileon 09-09-2025 CHOL:HDL 4.17 Normal [facility] Comment on above: Performed By: #### L 505.7010, L3100.5450, L100.0100, L4600.0100, L500.4050, L500.4100 ####[facility] [address] [place], [address] Cholesterol [Mass/Vol] 190 mg/dL Normal <=200 [facility] Comment on above: Result Comment: Chol esterol level, Desirable <200 mg/dL Borderline high cholesterol 200-239 mg/dL High cholesterol >=240 mg/dL Recommendations of the NCEP Adult Treatment Panel for the following risk-cutoff thresholds for the [place] population. Performed By: #### L 505.7010, L3100.5450, L100.0100, L4600.0100, L500.4050, L500.4100 ####[facility] [address] [place], [address] Cholesterol in HDL [Mass/Vol] 46 mg/dL Normal [facility] Comment on above: Result Comment: Meaghan onal Cholesterol Education Program (NCEP) guidelines: <40 mg/dL: Low HDL-cholesterol (major risk factor for CHD) >= 60 mg/dL: High HDL-cholesterol (negative risk factor for CHD) HDL-cholesterol is affected by a number of factors, e.g. smoking, exercise, hormones, sex and age. Performed By: #### L 505.7010, L3100.5450, L100.0100, L4600.0100, L500.4050, L500.4100 ####[facility] [address] [place], [address] Cholesterol in LDL [Mass/Vol] 129 mg/dL Normal [facility] Comment on above: Result Comment: Bord baqbjd=466-633 mg/dL Higher Sdnh=039 mg/dL or greater Blanchard Equation 2020 for LDL-C Performed By: #### L 505.7010, L3100.5450, L100.0100, L4600.0100, L500.4050, L500.4100 ####[facility] [address] [place], [place], [address] Cholesterol in VLDL [Mass/Vol] 16 mg/dL Normal 5-40 [facility] Comment on above: Performed By: #### L 505.7010, L3100.5450, L100.0100, L4600.0100, L500.4050, L500.4100 ####[facility] [address] [place], [address] Triglyceride [Mass/Vol] 82 mg/dL Normal [facility] Comment on above: Result Comment: The drugs N-Acetylcysteine and Metamizole may falsely depress this assay. Normal range: <150 mg/dL Borderline High: 150-199 mg/dL High: 200-499 mg/dL Very High: >500 mg/dL Performed By: #### L 505.7010, L3100.5450, L100.0100, L4600.0100, L500.4050, L500.4100 ####[facility] [address] [place], [address] Rheumatoid Factoron 09-09-20 25 RHEUMATOID FAC < 10.0 Normal <15 [facility] Comment on above: Performed By: #### L 505.7010, L3100.5450, L100.0100, L4600.0100, L500.4050, L500.4100 ####[facility] [address] [place], [place], [address] Internal Medicine Office Vis iton 09-08-2025 Internal Medicine Office Visit [facility] Internal Medicine [address] [place], [place] [address] OFFICE VISIT Date of Service: 09/09/25 MR#: [id number] Acct: [id number] Name: NAILA WARREN JEWEL Rep #: [id number] : 1985 Provider: Dr. 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 EST CARE/SEE [facility] Chief Complaint: establishing Client Service Executive Required: No Accompanied by: Self Is patient in pain?: No Allergies codeine Allergy (Severe, Verified 09/09/25 09:34) NEEDS FOLLOW-UP Penicillins Allergy (Severe, Verified 09/09/25 09:34) NEEDS FOLLOW-UP Seasonal Allergies: Uncoded Allergy (Mild, Verified 09/09/25 09:34) Other Medications ???Medication ???Instructions ???Recorded ???Confirmed ???Type naproxen 500 mg tablet 500 mg PO BID #14 tabs 11/26/23 Rx allergy shots subcut .weekly [facility] 5 09/09/25 History seasonal allergies fluticasone propionate 50 spray intranasal 04/28/25 09/09/25 History mcg/actuation nasal spray,suspension triamcinolone acetonide 0.5 % 1 applic topical TID PRN itching 0 04/28/25 09/09/25 Rx topical ointment #15 grams albuterol sulfate 90 mcg/actuation 2 puff inhalation Q6H PRN 09/09/25 Rx aerosol inhaler (Ventolin HFA) shortness of breath or wheezing #8.5 grams cetirizine 10 mg tablet (Zyrtec) 10 mg PO QDAY PRN allergy symptoms 09/09/25 09/09/25 Rx #90 tabs multivitamin (Daily Multi-Vitamin 1 tab PO DAILY PRN 09/09/2509/09 History tablet) nicotine (polacrilex) 2 mg buccal 2 mg buccal Q6H PRN 09/09/2502/28 History lozenge omeprazole 20 mg capsule,delayed 20 mg PO QDAY #90 caps 09/09/25 Rx release Nurse's Note: establishing care, left foot inflammation and pain does need sgy just hasnt had yet 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 Nilam Montaño MD) H/O lithotripsy H/O ovarian cystectomy History of mandibular surgery Hx of tonsillectomy Hx of appendectomy Family History (Updated 09/09/25 @ 09:[address] Nilam Montaño MD) Father Cancer SKin Diabetes Myocardial infarction, Onset Age: 71 Grandmother Breast cancer Maternal CVA (cerebral vascular accident) Mother Diabetes MRSA (methicillin resistant Staphylococcus aureus) Social History (Updated 09/09/25 @ 09:[address] Nilam Montaño MD) adopted: No household members: children number of children: 1 current occupational status: employed current occupation: [employer] pets and animals: Yes (2) pets and animals: dog(s) sexually active: No Smoking Status: Former smoker quit date: 11/06/19 Tobacco: How many years used: 27 Smokeless tobacco user: dissolvable tobacco and other alcohol intake: former year quit: 2019 substance use type: does not use and former substance user Date of last use: diet: lactose free caffeine: Yes (blonde coffee-1qd) Type: coffee what type of physical activity do you participate in: walking frequency: other details: walks dogs duration: 15-30 minutes/day seatbelt use: always do you feel safe at home: Yes additional social history: Single Questionnaire PQH-9 BMS Over the last 2 weeks, how often have you been bothered by any of the following problems? 1. Little interest or pleasure in doing things: not at all 2. Feeling down, depressed, or hopeless: not at all 3. Trouble falling or staying asleep, or sleeping too much: not at all 4. Feeling tired or having little energy: not at all 5. Poor appetite or overeating: not at all 6. Feeling bad about yourself - or that you are a failure or have let yourself and your family down: not at all 7. Trouble concentrating on things, such as reading the newspaper or watching television: not at all 8. Moving or speaking so slowly that other people could have noticed? - Or the opposite - being so fidgety or restless that you have been moving around a lot more than usual: not at all 9. Thoughts that you would be better off or of hurting yourself in some way: not at all Total score: 0 If you checked off any problems, how difficult hav (more content not included)... Normal [facility] Urine Cultureon 07-02-2025 URC Mixed Gram Positive Organisms [place] Count 25,000-50,000 MIXC Mixed contaminants. Submit a new specimen if indicated. Normal [facility] Comment on above: Performed By: #### L 400.0001, M100.2200 #### [facility] [address] [place], [address] Bilirubin Test strip Ql (U)O rdered By: Alejandra Wilder on 06-30-2025 Bilirubin Ql (U) Negative Negative [facility] Internal Medicine Office Vis iton 06-30-2025 Internal Medicine Office Visit [facility] [address] [place], [place] [address] OFFICE VISIT Date of Service: 06/30/25 MR#: [id number] Acct: [id number] Name: NAILA WARREN Rep #: [id number] : 1985 Provider: SAMI cleveland Age/Sex: 40/F Location: [facility] Status: Signed Intake Vital Signs 04/28/25 11:18 06/30/25 10:47 Height 5 ft 3 in 5 ft 3 in Weight: 215 lb 218 lb BMI 38.0 38.6 BP 118/80 122/64 H Blood Pressure Location Lt brachial Lt brachial Position Sitting Sitting Respiration 16 18 Pulse 73 75 Pulse Source Monitor Monitor Temp 97 F L 97.0 F L Temp Source Temporal Temporal Pulse Oximetry (%) 97 96 Oxygen Delivery Method room air room air Intake Visit Reasons: Urinary tract infection Chief Complaint: Urinary Tract infection Is patient in pain?: No Allergies codeine Allergy (Severe, Verified 06/30/25 10:48) NEEDS FOLLOW-UP Penicillins Allergy (Severe, Verified 06/30/25 10:48) NEEDS FOLLOW-UP Seasonal Allergies: Uncoded Allergy (Mild, Verified 06/30/25 10:48) Other Medications ???Medication ???Instructions ???Recorded ???Confirmed ???Type multivitamin (Daily Multi-Vitamin 1 tab PO DAILY 11/26/23 06/30/25 History tablet) naproxen 500 mg tablet 500 mg PO BID #14 tabs 11/26/23 Rx allergy shots subcut .weekly [facility] 5 06/30/25 History seasonal allergies cetirizine 10 mg tablet (Zyrtec) 10 mg PO QDAY PRN 04/28/25 5 History fluticasone propionate 50 spray intranasal 04/28/25 06/30/25 History mcg/actuation nasal spray,suspension triamcinolone acetonide 0.5 % 1 applic topical TID PRN itching 0 04/28/25 06/30/25 Rx topical ointment #15 grams albuterol sulfate 90 mcg/actuation 2 puff inhalation Q6H PRN 06/30/25 Rx aerosol inhaler (Ventolin HFA) shortness of breath or wheezing #8.5 grams nitrofurantoin 100 mg PO Q12H 5 days #10 caps 06/30/25 Rx monohydrate/macrocrystals 100 mg capsule (Macrobid) phenazopyridine 100 mg tablet 100 mg PO TID PRN pain 6 doses #6 06/30/25 06/30/25 Rx (Pyridium) tabs Have you fallen in the past year?: No Nurse's Note: pt reports that she started having uti like symptoms, urinary hesitation and burning 2 days ago denies fever or chills states she has not been using azo PFSH Medical History Seizures, post-traumatic Normal colonoscopy Epilepsy Ovarian cyst Kidney stone Surgical History History of mandibular surgery Hx of tonsillectomy Hx of appendectomy Family History Father Cancer SKin Diabetes Grandmother Breast cancer Maternal CVA (cerebral vascular accident) Mother Diabetes Social History adopted: No household members: children number of children: 1 current occupational status: employed current occupation: [employer] pets and animals: Yes (2) pets and animals: dog(s) sexually active: No Smoking Status: Former smoker quit date: 11/06/19 Tobacco: How many years used: 27 Smokeless tobacco user: dissolvable tobacco and other alcohol intake: former year quit: 2018 substance use type: does not use and former substance user Date of last use: diet: lactose free caffeine: Yes (blonde coffee-1qd) Type: coffee what type of physical activity do you participate in: walking frequency: other details: walks dogs duration: 15-30 minutes/day seatbelt use: always do you feel safe at home: Yes additional social history: Single HPI HPI Chief Complaint: Urinary Tract infection Details: NAILA WARREN, is a 40 F who presents to the office today for evaluation of urinary tract symptoms. Patient complains of urgency frequency dysuria and suprapubic pain that began 2 days ago. Patient denies flank pain denies fever or chills, denies nausea and vomiting. Patient denies any change in sexual intercourse or change in activity such as swimming or bathing that would have placed her at risk for urinary tract infection ROS Const Constitutional: No body ache, chills, excessive sweating, fatigue, fever(s), frequent falls, headache(s), snoring, weight change, sleep problems, abnormal sleep pattern or change in appetite Eyes Eyes: No blurry vision, change in vision, eye pain or Light sensitivity ENT ENT: No abnormal hearing, ear or mastoid pain, tinnitus, nasal congestion, headache(s), neck pain or sore throat Resp Respiratory: No cough, shortness of breath, snoring or wheezing Cardio Cardiology: No chest pain at rest, chest pain with exertion, excessive sweating, shortness of breath, dyspnea on exertion, lighth (more content not included)... Normal [facility] Ketones Test strip Ql (U)Ord ered By: Alejandra Wilder on 06-30-2025 Ketones Ql (U) Negative Negative [facility] Laboratory - Chemistry and C hemistry - challengeOrdered By: Alejandra Wilder on 06-30-2025 Glucose Ql (U) Negative [facility] pH (U) 7.0 [pH] [facility] Specific gravity (U) [Rel density] 1.015 [facility] - Hematology and Cell countsOrdered By: Alejandra Wilder on 06-30-2025 Hemoglobin Ql (U) Trace [facility] - Specimen inform ationOrdered By: Alejandra Wilder on 06-30-2025 Clarity (U) Clear [facility] Color (U) YELLOW [facility] Microscopic analysis of urin e for red blood cells (RBC)Ordered By: Alejandra Wilder on 06-30-2025 Microscopic analysis of urine for red blood cells (RBC) 0-5 SEEN /hpf 0-5 [facility] Mucus LM Ql (Urine sed)Order ed By: Alejandra Wilder on 06-30-2025 Mucus Ql (Urine sed) 0 SEEN /hpf [facility] Nitrite Test strip Ql (U)Ord ered By: Alejandra Wilder on 06-30-2025 Nitrite Ql (U) Negative Negative [facility] No Panel InformationOrdered By: Alejandra Wilder on 06-30-2025 Urine Leukocytes Positive [facility] Protein Test strip Ql (U)Ord ered By: Alejandra Wilder on 06-30-2025 Protein Ql (U) Negative Negative [facility] Squamous epithelial cells de tection in urine sediment by light microscopyOrdered By: Alejandra Wilder on 06-30-2025 Epithelial cells.squamous LM Ql (Urine sed) 0-5 SEEN /hpf 5-10 [facility] Urinalysis, Completeon 06-30 BACTERIA 2+ /hpf Normal None Seen [facility] Comment on above: Order Comment: COLLE CTOR TO SPECIFY Performed By: #### L 400.0001, M100.2200 #### [facility] [address] [place], [place], [id number] EPI,SQUAMOUS 0-5 SEEN Normal 5-10 [facility] Comment on above: Order Comment: COLLE CTOR TO SPECIFY Performed By: #### L 400.0001, M100.2200 #### [facility] [address] [place], [address] RBC 0-5 SEEN Normal 0-5 [facility] Comment on above: Order Comment: COLLE CTOR TO SPECIFY Performed By: #### L 400.0001, M100.2200 #### [facility] [address] [place], [address] WBC 5-10 SEEN Normal 0-5 [facility] Comment on above: Order Comment: ERNIE CTOR TO SPECIFY Performed By: #### L 400.0001, M100.2200 #### [facility] [address] [place], [address] Mucus Ql (Urine sed) 0 SEEN Normal [facility] Comment on above: Order Comment: COLLE CTOR TO SPECIFY Performed By: #### L 400.0001, M100.2200 #### [facility] [address] [place], [address] Urine clarityOrdered By: Karli Wilder on 06-30-2025 Clarity (U) Sl. Cloudy Clear [facility] Urine color determinationOrd ered By: Alejandra Wilder on 06-30-2025 Color (U) Yellow Yellow [facility] Urine cultureOrdered By: Karli Wilder on 06-30-2025 Bacteria identified Cx Nom (U) Positive Abnormal [facility] Urine glucose detectionOrder ed By: Alejandra Wilder on 06-30-2025 Glucose Ql (U) Normal mg/dl Normal [facility] Urine leukocyte esterase det ection by dipstickOrdered By: Alejandra Wilder on 06-30-2025 Leukocyte esterase Test strip Ql (U) 100 /ul High Negative [facility] Urine pHOrdered By: Alejandra Wilder on 06-30-2025 pH (U) 6.5 [pH] 5.0 - 8.0 [facility] Urine sediment bacteria coun t by microscopy (number/high power field)Ordered By: Alejandra Wilder on 06-30-2025 Bacteria LM.HPF (Urine sed) [#/Area] 2 /[HPF] None Seen [facility] Urine specific gravity measu rementOrdered By: Alejandra Wilder on 06-30-2025 Specific gravity (U) [Rel density] 1.010 1.002-1.03 0 [facility] Urine urobilinogen measureme ntOrdered By: Alejandra Wilder on 06-30-2025 Urobilinogen Ql (U) Normal mg/dl Normal [facility] White blood cell countOrdere d By: Alejandra Wilder on 06-30-2025 White blood cell count 5-10 SEEN /hpf 0-5 [facility] Internal Medicine Office Vis iton 04-28-2025 Internal Medicine Office Visit [facility] [address] [place] [address] [address] [place] [address] OFFICE VISIT Date of Service: 04/28/25 MR#: [id number] Acct: [id number] Name: NAILA WARREN Rep #: [id number] : 1985 Provider: SAMI cleveland Age/Sex: 40/F Location: [facility] Status: Signed Intake Vital Signs 10/23/24 13:00 04/28/25 11:18 Height 5 ft 4 in 5 ft 3 in Weight: 215 lb BMI 38.0 BP 118/80 Blood Pressure Location Lt brachial Position Sitting Respiration 16 Pulse 73 Pulse Source Monitor Temp 97 F L Temp Source Temporal Pulse Oximetry (%) 97 Oxygen Delivery Method room air Intake Visit Reasons: ACUTE UTI, NOT GETTING BETTER-EST IN JUN Chief Complaint: uti Client Service Executive Required: No Accompanied by: Self Is patient in pain?: No Allergies codeine Allergy (Severe, Verified 04/28/25 10:53) NEEDS FOLLOW-UP Penicillins Allergy (Severe, Verified 04/28/25 10:53) NEEDS FOLLOW-UP Seasonal Allergies: Uncoded Allergy (Mild, Verified 04/28/25 10:53) Other Medications ???Medication ???Instructions ???Recorded ???Confirmed ???Type multivitamin (Daily Multi-Vitamin 1 tab PO DAILY 11/26/23 04/28/25 History tablet) naproxen 500 mg tablet 500 mg PO BID #14 tabs 11/26/23 Rx allergy shots subcut .weekly [facility] 5 History seasonal allergies cetirizine 10 mg tablet (Zyrtec) 10 mg PO QDAY PRN 04/28/25 5 History ciprofloxacin 0.3 %-dexamethasone 4 drp otic (ear) BID 7 days #7.5 mL 04/28/25 04/28/25 Rx 0.1 % ear drops,suspension fluticasone propionate 50 spray intranasal 04/28/25 04/28/25 History mcg/actuation nasal spray,suspension triamcinolone acetonide 0.5 % 1 applic topical TID PRN itching 0 04/28/25 04/28/25 Rx topical ointment #15 grams Nurse's Note: Pt states she gets reoccuring Uti's since giving 8 years ago this current UTI has been ongoing for 3 months She has been on 3 different types of atbs, pt states the most recent one was effective for the UTI. She finished it a week ago and after finishing it is when she started having sx's. Pt is having vaginal itching, she states she has been using monistat cream which helps some with the itching. Pt states that she has not been sexually active since 08/2024. Pt denies discharge, abnormal bleeding, pressure, dysuria, or change in vaginal/discharge smell. Pt states she did have pimples around the area that resolved when she used epsom salt soaks. Pt is concerned this could be menopause. Pt has never seen a urologist does follow w/ [facility]. Pt states she is unable to afford monistat otc. Pt previous pcp was Evelia Cadet at [facility]. [facility] Medical History (Updated 04/28/25 @ 14:53 by SAMI Solis) Seizures, post-traumatic Normal colonoscopy Epilepsy Ovarian cyst Kidney stone Surgical History (Updated 04/28/25 @ 11:14 by Monica Rebolledo MA) History of mandibular surgery Hx of tonsillectomy Hx of appendectomy Family History (Updated 04/28/25 @ 11:14 by Monica Rebolledo MA) Father Cancer SKin Diabetes Grandmother Breast cancer Maternal CVA (cerebral vascular accident) Mother Diabetes Social History (Updated 04/28/25 @ 11:18 by Monica Rebolledo MA) adopted: No household members: children number of children: 1 service: No current occupational status: employed 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 pets and animals: Yes (2) pets and animals: dog(s) sexually active: No do you think of yourself as: straight/heterosexual current gender identity: female Smoking Status: Former smoker quit date: 11/06/19 Tobacco: How many years used: 27 Smokeless tobacco user: dissolvable tobacco and other alcohol intake: former year quit: 2019 substance use type: does not use and former substance user Date of last use: diet: lactose free caffeine: Yes (blonde coffee-1qd) Type: coffee what type of physical activity do you participate in: walking frequency: other details: walks dogs duration: 15-30 minutes/day seatbelt use: always do you feel safe at home: Yes additional social history: Single HPI HPI Chief Complaint: uti Details: NAILA WARREN, is a 40 F who presents to the office today for complaints of vaginal itching. Patient states this is a recurring problem on and off for the last 8 years. States she feels it has been getting more frequent over the last 3 years. Last noted rash started approximately a week ago around the groin and external genitalia. Patient reports rash as being purple in color with fluid- filled like blisters. She states that none of the areas ever opened there was no drainage complains of burning pain and itching. She states that it has improved at this time. Notes that it tends to get worse about a wee (more content not included)... Normal [facility] Chepe 03-26-2025 [facility] Letter Text Normal [facility] Alec 03-12-2025 ERIC Telephone (PODIMM) NAILA WARREN ([id number]) 1985 F Date Time Provider Department 03/12/25 EMETERIO PIZANO SONYA During your visit today, we recorded the following information about you: Alice Holguin LPN 03/12/2025 10:17 AM Signed Rufino Pizanoew to [facility] Podiatry Pool 03/12/25 7:46 AM Please call patient to inform her that her A1c was normal Alice Holguin LPN 03/12/2025 10:17 AM Signed Called patient to provide below results. No response. VM not set up. Alice Holguin LPN 03/21/2025 3:46 PM Signed 2nd attempt. Called patient to provide below results. No response. VM not set up. Alice Holguin LPN 03/26/2025 12:09 PM Signed 3rd attempt. Patient has calling restriction and call could not be completed. ERIN Romero Amelia, LPN 03/26/2025 4:28 PM Signed Letter mailed to patients home informing her to contact office for results. ERIN Romero Amy M, MA 04/08/2025 8:52 AM Signed Patient called in and message given to the patient. She verbalized understanding. Allergies As of Date: 03/12/2025 Noted Allergy Reaction CODEINE 04/29/2024 14 - Other: See Comments Comments: Seizure activity PENICILLINS 04/29/2024 14 - Other: See Comments Comments: Seizure activity Date Reviewed: 03/10/2025 Reviewed by: Kyra Bruce RN - Fully Assessed Prescriptions as of 04/08/2025 - cetirizine (ZYRTEC) 10 mg tablet Take 1 tablet by mouth once daily. - fluticasone propionate (FLONASE NASAL) Use in the nose as needed. - aspirin/sod bicarb/citric acid (MAYRA-SELTZER ORAL) Take by mouth as needed. - calcium carbonate (TUMS ORAL) Take by mouth as needed. - Lactobacillus acidophilus (PROBIOTIC ACIDOPHILUS ORAL) Take by mouth once daily. - meloxicam (MOBIC) 15 mg tablet Take 1 tablet by mouth once daily. Problem List As Of Date: 03/12/2025 (None) Encounter Status:Closed by ALICE HOLGUIN on 03/26/25 [facility] CNOVon 03-10-2025 CNOV Office Visit (PODIWS ) NAILA WARREN ([id number]) 1985 F Date Time Provider Department 03/10/25 8:45 AM EMETERIO PIZANO PODIWS During your visit today, we recorded the following information about you: Kyra Bruce, RN 03/10/2025 11:01 AM Signed Patient presents with: Left Foot - New, Pain Right Foot - New, Pain AMB ROOMING INTAKE FLOWSHEET DATA Risk Screening Do you have concerns about personal safety or safety in the home?: No Pain Pain Level: 8 Pain Location: Other: See Comment (Bilateral feet L>R) Description: Cramping, Throbbing, Aching, Burning Duration Units: Years Frequency: Intermittent Intervention/Comfort measure: Relaxation, Reposition Patient presents for bilateral foot pain that has been ongoing for years. States that she has seen multiple providers for this and told its plantar fasciitis or arthritis. She has had to switch jobs to something less active. Also states that the stairs at her apartment bother her feet, particularly walking down them. Has used Inserts, PT, warm water therapy. The warm water therapy helped relieve the pain, but she no longer lives near where she used to go. States that she takes epsom salt baths multiple times a week. Xray prior to appointment Emeterio Pizano 03/10/2025 9:25 AM Signed Wear shoes with good support (like Melgoza, Asics, Hoka, or New Balance) and avoid unsupportive footwear such as sandals, flip-flops, and Crocs to help reduce your foot pain. Use an orthotic insert in your shoe; if it causes pressure on the bump on top of your foot, consider altering your shoe lacing (for example, crossing the laces at the base and top then up the sides) to reduce irritation. Elevate your feet when you are at rest and at night to help decrease swelling. Take meloxicam once a day as needed for pain; your prescription (with one refill) is to be picked up at [facility] in [place]. Complete the blood work as ordered, including an A1c and a complete metabolic panel, to help assess your overall health and determine if additional treatments are needed. Emeterio Pizano 03/10/2025 11:01 AM Signed Subjective Naila is a 39-year-old female presenting for evaluation of chronic bilateral foot pain, with the left foot being more severely affected. Bilateral Foot Pain: - Chronic pain in the dorsal aspect of both feet, left worse than right, x10 years. - Pain is associated with swelling and burning sensation in the toes, particularly when severe. - Pain localized to the dorsal midfoot and upper toes on the right foot. 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 - Alleviated by wearing Melgoza shoes, soaking in Epsom salts 4-5 times/week, and elevating feet in a recliner. - Regular use of Tylenol and Aleve for pain management. - Denies use of anti-inflammatory medications. - Diagnosed with plantar fasciitis and arthritis; has tried orthotic inserts with some relief. - Denies current . Family History: - Both parents have diabetes mellitus. Social History: - Former smoker, quit 5 years ago. - Uses 2 mg nicotine pouches to take the edge off. Musculoskeletal: (+) foot pain (left > right), (+) foot swelling (left), (+) heel pain (right) Neurological: (+) burning in toes (left) PAST MEDICAL HISTORY Diagnosis Date Acid reflux Ovarian cyst Current Outpatient Medications Medication Sig Dispense Refill cetirizine (ZYRTEC) 10 mg tablet Take 1 tablet by mouth once daily. fluticasone propionate (FLONASE NASAL) Use in the nose as needed. aspirin/sod bicarb/citric acid (MAYRA-SELTZER ORAL) Take by mouth as needed. calcium carbonate (TUMS ORAL) Take by mouth as needed. Lactobacillus acidophilus (PROBIOTIC ACIDOPHILUS ORAL) Take by mouth once daily. meloxicam (MOBIC) 15 mg tablet Take 1 tablet by mouth once daily. 30 tablet 1 No current facility-administered medications for this visit. No family history on file. Objective There were no vitals taken for this visit. - Cardiovascular: Dorsalis pedis and posterior tibial pulses faintly palpable bilaterally; capillary refill time 5 seconds. - Skin: Well-hydrated; no signs of calluses or skin lesions on bilateral feet. - Neurological: Sensation mostly intact bilaterally, slightly decreased on the left foot; vibratory sensation intact bilaterally. - Musculoskeletal: - Bilateral Feet: - Slight flattening of arches on weight-bearing. - Left Foot: - Dorsal spurring along the midfoot, particularly at the second tarsometatarsal joint. - Pain with ROM in the midtarsal joint. - Right Foot: - Slight pain on palpation of the plantar medial calcaneal tubercle. Imaging: (03/10/2025) X-ray: - Arthritic changes in the left tarsometatarsal joint with narrowing of the joint space - Degenerative changes involving the navicular c (more content not included)... Normal [facility] Comprehensive metabolic 2000 panelOrdered By: Tila Claros on 03-10-2025 Albumin [Mass/Vol] 4.2 g/dL 3.9 - 4.9 g/dL [facility] ALP [Catalytic activity/Vol] 97 U/L 34 - 123 U/L [facility] ALT [Catalytic activity/Vol] 13 U/L 7 - 38 U/L [facility] Anion gap [Moles/Vol] 9 mmol/L 8 - 15 mmol/L [facility] AST [Catalytic activity/Vol] 13 U/L 13 - 35 U/L [facility] Bilirubin [Mass/Vol] 0.3 mg/dL 0.2 - 1 .3 mg/dL [facility] Calcium [Mass/Vol] 9.2 mg/dL 8.5 - 10. 2 mg/dL [facility] Chloride [Moles/Vol] 103 mmol/L 98 - 10 7 mmol/L [facility] CO2 [Moles/Vol] 27 mmol/L 22 - 30 mmol/L [facility] Creatinine [Mass/Vol] 0.68 mg/dL 0.58 - 0.96 mg/dL [facility] GFR/1.73 sq M.predicted among non-blacks MDRD (S/P/Bld) [Vol rate/Area] 112 mL/min/{1.73_m2} - PINF [facility] Comment on above: Estimated Glomerular Filtration Rate (eGFR) is calculated using the 2020 CKD-EPI creatinine equation. This equation utilizes serum creatinine, sex, and age as parameters. The creatinine assay has traceable calibration to isotope dilution-mass spectrometry. Refer to KDIGO guidelines for clinical interpretation. In patients with unstable renal function, e.g. those with acute kidney injury, the eGFR may not accurately reflect actual GFR. Glucose [Mass/Vol] 95 mg/dL 74 - 99 mg/dL [facility] Comment on above: The [place] Diabete s Association (ADA) provides guidance for cutoff values for fasting glucose and random glucose. The ADA defines fasting as no caloric intake for at least 8 hours. Fasting plasma glucose results between 100 to 125 mg/dL indicate increased risk for diabetes (prediabetes). Fasting plasma glucose results greater than or equal to 126 mg/dL meet the criteria for diagnosis of diabetes. In the absence of unequivocal hyperglycemia, results should be confirmed by repeat testing. In a patient with classic symptoms of hyperglycemia or hyperglycemic crisis, random plasma glucose results greater than or equal to 200 mg/dL meet the criteria for diagnosis of diabetes. Reference: Standards of Medical Care in Diabetes 2016, [place] Diabetes Association. Diabetes Care. 2016.39(Suppl 1). Interpretation and review of laboratory results Normal [facility] Potassium [Moles/Vol] 3.9 mmol/L 3.7 - 5.1 mmol/L [facility] Protein [Mass/Vol] 7.3 g/dL 6.3 - 8.0 g/dL [facility] Sodium [Moles/Vol] 139 mmol/L 136 - 144 mmol/L [facility] Urea nitrogen [Mass/Vol] 7 mg/dL 7 - 21 mg/dL [facility] Comprehensive metabolic 2000 panelon 03-10-2025 Albumin [Mass/Vol] 4.2 g/dL Normal 3.9-4.9 [facility] Comment on above: Order Comment: Speci men Type: BLOOD SPECIMEN Ordering Facility: [facility] Address: [address] [place] [address] Performed By: #### 2 4323-8 #### [facility] [id number] [address] [place] [address] [place] ALP [Catalytic activity/Vol] 97 U/L Normal 34-[address] [facility] Comment on above: Order Comment: Speci men Type: BLOOD SPECIMEN Ordering Facility: [facility] Address: [address] [place] [address] Performed By: #### 2 4323-8 #### [facility] CLIA [id number] [address] [place] [address] [place] ALT [Catalytic activity/Vol] 13 U/L Normal 7-[address] [facility] Comment on above: Order Comment: Speci men Type: BLOOD SPECIMEN Ordering Facility: [facility] Address: [address] [place] [address] Performed By: #### 2 4323-8 #### [facility] CLIA [id number] [address] [place] [address] [place] Anion gap [Moles/Vol] 9 mmol/L Normal 8-15 [facility] Comment on above: Order Comment: Speci men Type: BLOOD SPECIMEN Ordering Facility: [facility] Address: [address] [place] [address] Performed By: #### 2 4323-8 #### [facility] CLIA [id number] [address] [place] [address] [place] AST [Catalytic activity/Vol] 13 U/L Normal 13-[address] [facility] Comment on above: Order Comment: Speci men Type: BLOOD SPECIMEN Ordering Facility: [facility] Address: [address] [place] [address] Performed By: #### 2 4323-8 #### [facility] CLIA [id number] [address] [place] [address] [place] Bilirubin [Mass/Vol] 0.3 mg/dL Normal 0.2-1.[address] [facility] Comment on above: Order Comment: Speci men Type: BLOOD SPECIMEN Ordering Facility: [facility] Address: [address] [place] [address] Performed By: #### 2 4323-8 #### [facility] CLIA [id number] [address] [place] [address] [place] Calcium [Mass/Vol] 9.2 mg/dL Normal 8.5-10.2 [facility] Comment on above: Order Comment: Speci men Type: BLOOD SPECIMEN Ordering Facility: [facility] Address: [address] [place] [address] Performed By: #### 2 4323-8 #### [facility] CLIA [id number] [address] [place] [address] [place] Chloride [Moles/Vol] 103 mmol/L Normal 98-[address] [facility] Comment on above: Order Comment: Speci men Type: BLOOD SPECIMEN Ordering Facility: [facility] Address: [address] [place] [address] Performed By: #### 2 4323-8 #### [facility] CLIA [id number] [address] [place] [address] [place] CO2 [Moles/Vol] 27 mmol/L Normal 22-[address] [facility] Comment on above: Order Comment: Speci men Type: BLOOD SPECIMEN Ordering Facility: [facility] Address: [address] [place] [address] Performed By: #### 2 4323-8 #### [facility] CLIA [id number] [address] [place] [address] [place] Creatinine [Mass/Vol] 0.68 mg/dL Normal 0.58-0.96 [facility] Comment on above: Order Comment: Speci men Type: BLOOD SPECIMEN Ordering Facility: [facility] Address: [address] [place] [address] Performed By: #### 2 4323-8 #### [facility] CLIA [id number] [address] [place] [address] [place] Creatinine and Glomerular filtration rate.predicted panel (S/P/Bld) 112 mL/min/1.73m??? Normal >=[address] [facility] Comment on above: Order Comment: Maurice suazo Type: BLOOD SPECIMEN Ordering Facility: [facility] Address: [address] [place] [address] Result Comment: Kvng mated Glomerular Filtration Rate (eGFR) is calculated using the 2020 CKD-EPI creatinine equation. This equation utilizes serum creatinine, sex, and age as parameters. The creatinine assay has traceable calibration to isotope dilution-mass spectrometry. Refer to KDIGO guidelines for clinical interpretation. In patients with unstable renal function, e.g. those with acute kidney injury, the eGFR may not accurately reflect actual GFR. Performed By: #### 2 4323-8 #### [facility] [id number] [address] [place] [address] [place] Glucose [Mass/Vol] 95 mg/dL Normal 74-99 [facility] Comment on above: Order Comment: Maurice suazo Type: BLOOD SPECIMEN Ordering Facility: [facility] Address: [address] [place] [address] Result Comment: The [place] Diabetes Association (ADA) provides guidance for cutoff values for fasting glucose and random glucose. The ADA defines fasting as no caloric intake for at least 8 hours. Fasting plasma glucose results between 100 to 125 mg/dL indicate increased risk for diabetes (prediabetes). Fasting plasma glucose results greater than or equal to 126 mg/dL meet the criteria for diagnosis of diabetes. In the absence of unequivocal hyperglycemia, results should be confirmed by repeat testing. In a patient with classic symptoms of hyperglycemia or hyperglycemic crisis, random plasma glucose results greater than or equal to 200 mg/dL meet the criteria for diagnosis of diabetes. Reference: Standards of Medical Care in Diabetes 2016, [place] Diabetes Association. Diabetes Care. 2016.39(Suppl 1). Performed By: #### 2 4323-8 #### [facility] [id number] [address] [place] [address] [place] Potassium [Moles/Vol] 3.9 mmol/L Normal 3.7-5.1 [facility] Comment on above: Order Comment: Speci men Type: BLOOD SPECIMEN Ordering Facility: [facility] Address: [address] [place] [id number] Performed By: #### 2 4323-8 #### [facility] CLIA [id number] [address] [place] [address] [place] Protein [Mass/Vol] 7.3 g/dL Normal 6.3-8.0 [facility] Comment on above: Order Comment: Speci men Type: BLOOD SPECIMEN Ordering Facility: [facility] Address: [address] [place] [address] Performed By: #### 2 4323-8 #### [facility] CLIA [id number] [address] [place] [address] [place] Sodium [Moles/Vol] 139 mmol/L Normal 136-144 [facility] Comment on above: Order Comment: Speci men Type: BLOOD SPECIMEN Ordering Facility: [facility] Address: [address] [place] [address] Performed By: #### 2 4323-8 #### [facility] CLIA [id number] [address] [place] [address] [place] Urea nitrogen [Mass/Vol] 7 mg/dL Normal 7-[address] [facility] Comment on above: Order Comment: Speci men Type: BLOOD SPECIMEN Ordering Facility: [facility] Address: [address] [place] [address] Performed By: #### 2 4323-8 #### [facility] CLIA [id number] [address] [place] [address] [place] HbA1c (Bld)on 03-10-2025 Average glucose Estimated from glycated hemoglobin (Bld) [Mass/Vol] 108 mg/dL [facility] Comment on above: eAG: (Estimated aver age glucose) is a calculated value from HgbA1c and is business representative of the average blood glucose level in the last 2-3 month period. HbA1c (Bld) [Mass fraction] 5.4 % 4.3 - 5.6 % [facility] Comment on above: [place] Diabetes As sociation guidelines indicate that patients with HgbA1c in the range 5.7-6.4% are at increased risk for development of diabetes, and intervention by lifestyle modification may be beneficial. HgbA1c greater or equal to 6.5% is considered diagnostic of diabetes. [facility] Average glucose Estimated from glycated hemoglobin (Bld) [Mass/Vol] 108 mg/dL Normal [facility] Comment on above: Order Comment: Maurice suazo Type: BLOOD SPECIMEN Ordering Facility: [facility] Address: [address] [place] [address] Result Comment: eAG: (Estimated average glucose) is a calculated value from HgbA1c and is business representative of the average blood glucose level in the last 2-3 month period. Performed By: #### 5 5454-3 #### [facility] CLIA [id number] [address] [place] [address] [place] HbA1c (Bld) [Mass fraction] 5.4 % Normal 4.3-5.[address] [facility] Comment on above: Order Comment: Maurice suazo Type: BLOOD SPECIMEN Ordering Facility: [facility] Address: [address] [place] [address] Result Comment: [place] Diabetes Association guidelines indicate that patients with HgbA1c in the range 5.7-6.4% are at increased risk for development of diabetes, and intervention by lifestyle modification may be beneficial. HgbA1c greater or equal to 6.5% is considered diagnostic of diabetes. Performed By: #### 5 5454-3 #### [facility] CLIA [id number] [address] [place] [address] [place] XR FOOT 3V AP/LAT/OBL BILon 03-10-2025 XR FOOT 3V AP/LAT/OBL RUKHSANA * * *Final Report* * * DATE OF EXAM: Mar 10 2025 8:01AM [id number] - XR FOOT 3V AP/LAT/OBL RUKHSANA / PROCEDURE REASON: Pain * * * * Physician Interpretation * * * * EXAMINATION / TECHNIQUE: XR FOOT 3V AP/LAT/OBL RUKHSANA HISTORY: PT STATES BILAT DORSAL FOOT PAIN FOR SEVERAL YEARS Pain COMPARISON: None RESULT: No acute fracture or dislocation in either foot. Chronic calcification along the lateral aspect of the left cuboid may relate to remote trauma. 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 Mild midfoot osteoarthritis right. No osseous erosion in either foot. IMPRESSION: Degenerative changes as described. Sewing Line Baler: CARLEY Transcribe Date/Time: Mar 13 2025 7:22P Dictated by : SOBEIDA SILVA MD This examination was interpreted and the report reviewed and electronically signed by: SOBEIDA SILVA MD on Mar 13 2025 7:22PM EST [id number] Normal [facility] PAP IG HPV APTIMA 16/18,45on 11-02-2024 ADEQ Comment Normal . [facility] Comment on above: Order Comment: Specluan men Comment: [id number] Specimen Comment: Source.............Cervix Specimen Comment: LMP / Prev Treat...[id number] Specimen Comment: No. of containers..01 ThinPrep Vial Result Comment: Sati sfactory for evaluation. Endocervical and/or squamous metaplastic cells (endocervical component) are present. Performed By: #### L 7000.1800, M100.3200, L7400.0280, M100.1999 #### [facility] [address] [place], [place], [address] COMM . Normal . [facility] Comment on above: Order Comment: Speci men Comment: [id number] Specimen Comment: Source.............Cervix Specimen Comment: LMP / Prev Treat...[id number] Specimen Comment: No. of containers..01 ThinPrep Vial Performed By: #### L 7000.1800, M100.3200, L7400.0280, M100.1999 #### [facility] [address] [place], [place], [id number] COMMENT Comment Normal . [facility] Comment on above: Order Comment: Speci men Comment: [id number] Specimen Comment: Source.............Cervix Specimen Comment: LMP / Prev Treat...[id number] Specimen Comment: No. of containers..01 ThinPrep Vial Result Comment: This liquid based ThinPrep(R) pap test was screened with the use of an image guided system. Performed By: #### L 7000.1800, M100.3200, L7400.0280, M1.1999 #### [facility] [address] [place], [address] DIAG Comment Normal . [facility] Comment on above: Order Comment: Speci men Comment: [id number] Specimen Comment: Source.............Cervix Specimen Comment: LMP / Prev Treat...[id number] Specimen Comment: No. of containers..01 ThinPrep Vial Result Comment: NEGA TIVE FOR INTRAEPITHELIAL LESION OR MALIGNANCY. Performed By: #### L 7000.1800, M100.3200, L7400.0280, #### [facility] [address] [place], [place], [id number] HPV APTIMA, HR Negative Normal Negative [facility] Comment on above: Order Comment: Speci men Comment: [id number] Specimen Comment: Source.............Cervix Specimen Comment: LMP / Prev Treat...[id number] Specimen Comment: No. of containers..01 ThinPrep Vial Result Comment: This nucleic acid amplification test detects fourteen high- risk HPV types (16,18,31,33,35,39,45,51,52,56,58,59,66,68) without differentiation. Performed By: #### L 7000.1800, M100.3200, L7400.0280, M100.1999 #### [facility] [address] [place], [address] HPV Esther Rfx Comment Normal . [facility] Comment on above: Order Comment: Speci men Comment: [id number] Specimen Comment: Source.............Cervix Specimen Comment: LMP / Prev Treat...[id number] Specimen Comment: No. of containers..01 ThinPrep Vial Result Comment: Joset negin not met, HPV Genotype not performed. Performed at: [address] [id number] Field Services Analyst: Natanael Monterroso MD, Phone: [phone] Performed at: [address] [id number] Field Services Analyst: Patito Mayer MD, Phone: [phone] Performed at: [address] [id number] Field Services Analyst: Patito Mayer MD, Phone: [phone] Performed By: #### L 7000.1800, M100.3200, L7400.0280, M100 #### [facility] [address] [place], [place], [id number] PAPSMR Comment Normal . [facility] Comment on above: Order Comment: Speci men Comment: [id number] Specimen Comment: Source.............Cervix Specimen Comment: LMP / Prev Treat...[id number] Specimen Comment: No. of containers..01 ThinPrep Vial Result Comment: The Pap smear is a screening test designed to aid in the detection of premalignant and malignant conditions of the uterine cervix. It is not a diagnostic procedure and should not be used as the sole means of detecting cervical cancer. Both false-positive and false-negative reports do occur. Performed By: #### L 7000.1800, M100.3200, L7400.0280, M100.1999 #### [facility] [address] [place], [place], [id number] PERFORM Comment Normal . [facility] Comment on above: Order Comment: Speci men Comment: [id number] Specimen Comment: Source.............Cervix Specimen Comment: LMP / Prev Treat...[id number] Specimen Comment: No. of containers..01 ThinPrep Vial Result Comment: Franco Solis, Microphone Boom Operator (ASCP) Performed By: #### L 7000.1800, M100.3200, L7400.0280, M100.1999 #### [facility] [address] [place], [address] Chlamydia/GC SHREYAS aptimaon CHLAMY,NUC ACID Negative Normal Negative [facility] Comment on above: Performed By: #### L 7000.1800, M100.3200, L7400.0280, M100.1999 #### [facility] [address] [place], [address] GC BY NUC ACID Negative Normal Negative [facility] Comment on above: Result Comment: Perf ormed at: =G - [facility] [address] [id number] Field Services Analyst: Patito Mayer MD, Phone: [phone] Performed By: #### L 7000.1800, M100.3200, L7400.0280, M100.1999 #### [facility] Laboratory [address] [place], [address] Genital Culture Comprehensiv justen 10-24-2024 VAC Reason for Exam: vag inal itching Normal vaginal joleen isolated. No yeast, Gardnerella, Neisseria or beta-hemolytic Streptococcus isolated. Normal [facility] Comment on above: Performed By: #### L 7000.1800, M100.3200, L7400.0280, M100.1999 #### [facility] Laboratory [address] [place], [address] Gram Stainon 10-23-2024 GS Reason for Exam: vag inal itching Gram Stain 3+ Gram variable samuel 1+ Gram negative rods 2+ White Blood Cells No Gram negative diplococci Score = 8 Interpretation: 0-3 Normal, 4-6 Intermediate, 7-10 Positive BV Normal [facility] Comment on above: Performed By: #### L 7000.1800, M100.3200, L7400.0280, M100.1999 #### [facility] Laboratory [address] [place], [address] Machine Sole Leveler Office Visit Reporton 10-23-2024 Machine Sole Leveler Office Visit Report [facility] [address], [address] [place] [address] OFFICE VISIT Date of Service: 10/23/24 MR#: [id number] Acct: [id number] Name: NAILA WARREN Rep #: [id number] : 1985 Provider: SAMI slaughter Age/Sex: 39/F Location: [facility] Status: Signed Intake Vital Signs 08/04/24 16:12 10/23/24 12:52 10/23/24 13:00 Height 5 ft 4 in 5 ft 4 in 5 ft 4 in Weight: 202 lb 2 oz BMI 34.7 BP 124/82 H Intake Visit Reasons: DICUSS MIRENA/PROBLEMS Chief Complaint: Discuss Mirena/Problems Client Service Executive Required: No Is patient in pain?: No Allergies codeine Allergy (Severe, Verified 10/23/24 13:06) NEEDS FOLLOW-UP Penicillins Allergy (Severe, Verified 10/23/24 13:06) NEEDS FOLLOW-UP Seasonal Allergies: Uncoded Allergy (Mild, Verified 10/23/24 13:06) Other Medications ???Medication ???Instructions ???Recorded ???Confirmed ???Type fluoxetine 10 mg capsule (Prozac) 10 mg PO DAILY 11/26/23 10/23/24 History multivitamin (Daily Multi-Vitamin 1 tab PO DAILY 11/26/23 10/23/24 History tablet) naproxen 500 mg tablet 500 mg PO BID #14 tabs 11/26/23 10/23/24 Rx melatonin 5 mg capsule 5 mg PO DAILY PRN sleep 08/04/24 10/23/24 History mometasone 0.1 % topical ointment 1 applic topical .COMPLEX #15 grams 10/23/24 10/23/24 Rx Is last menstrual period known: Yes Last Menstrual Period: 10/03/24 Post menopausal: No Patient : No : No PFSH Medical History Epilepsy Ovarian cyst Kidney stone Surgical History Hx of tonsillectomy Hx of appendectomy Family History (Updated 10/23/24 @ 12:58 by Minnie Delgado) Father Cancer SKin Grandmother Breast cancer Maternal Social History (Updated 10/23/24 @ 12:59 by Minnie Delgado) current occupational status: employed current occupation: [employer] Smoking Status: Former smoker alcohol intake: never substance use type: does not use seatbelt use: always do you feel safe at home: Yes additional social history: Single HPI DICUSS KELSIE/PROBLEMS Details: NAILA WARREN is a 39 year old who presents for new patient for vaginal itching. No exam or pap in 8 years. Not currently sexually active but has been since last exam. Declines need for contr aception. Does not have IUD. Female Reproductive History Last Menstrual Period: 10/03/24 History 2 Elective abortions Hx Para 2 Spontaneous abortions Hx # Term Pregnancies Ectopic pregnancies Hx # Pregnancies Multiple births # of living children 2 Past Pregnancies Del. Date Name GA/Weeks Outcome Route Bth Weight Gen Labor Lgth Anesthesia Del Locatn Provider FOB Unknown Supriya Unknown Divya ROS Const Constitutional: Reports system reviewed and no additional complaints, except as documented Eyes Eyes: Reports system reviewed and no additional complaints, except as documented GI GI: Denies abdominal pain or change in bowel habits : Reports as per HPI Exam Const General: cooperative and no acute distress Orientation: oriented x3 General: bladder normal to palpation External Female Exam: normal external appearance and normal appearance of the urethra Urethra: normal appearance of the urethra Speculum Exam - Vagina: normal appearance of the vagina, normal vaginal discharge, no lesions and nontender Speculum Exam - Cervix: normal appearance of the cervix Bimanual Exam- Vagina Uterus: normal bimanual exam, uterine size normal, bladder normal to palpation, uterine shape normal, uterine mobility normal and non-tender Bimanual Exam- Adnexa, other: normal adnexae, no masses and non-tender Coding Level of Care Code Off vis,new,level 3 Diagnoses Vagina itching N89.8 Assessment and Plan Assessment and Plan (1) Vagina itching: Medications: New mometasone 0.1% 1 applic topical small amount as directed and rub in bid X 2 weeks, daily X 2 weeks then prn; 15 grams 2RF Plan Mike BV and trich, GCC and comp vaginal culture call positive Rx mometesone thin prep pap with HPV mammogram RTO 1 year, prn 10/23/24 1317 Date Mary Amando PUBLIC HEALTH PROGRAM MANAGER PUBLIC HEALTH PROGRAM MANAGER-C Cosigner Signature: Date (if applicable) CC: Normal [facility] Culture, urineOrdered By: Edward Anthony on 01-11-2024 Bacteria identified Cx Nom (U) Positive [facility] Laboratory - Chemistry and C hemistry - challengeon 01-11-2024 HCG ( test) Ql (U) Negative [facility] Bilirubin Ql (U) Negative [facility] Glucose Ql (U) Negative [facility] Ketones Ql (U) Negative [facility] pH (U) 6.0 [pH] [facility] Specific gravity (U) [Rel density] 1.005 [facility] Urobilinogen (U) [Mass/Vol] Negative [facility] Laboratory - Hematology and Cell countson 01-11-2024 Hemoglobin Ql (U) Negative [facility] Laboratory - Specimen inform ationon 01-11-2024 Clarity (U) Clear [facility] Color (U) Yellow [facility] Laboratory - Urinalysison Nitrite Ql (U) Negative [facility] Protein Ql (U) Negative [facility] No Panel Informationon 01-10 Urine Leukocytes Positive [facility] Urine Non-Hemolyzed Blood [facility] Laboratory - Microbiology an d Antimicrobial susceptibilityon 12-04-2023 S. pyogenes Ag IA Ql (Unsp spec) Negative [facility] No Panel Informationon 12-04 Influenza Types A,B Rapid (Clinic) Negative [facility] POC SARS CoV-2 Antigen Negative [facility] Absolute lymphocyte countOrd ered By: Kary Blakely on 11-26-2023 Lymphocytes Auto (Unsp spec) [#/Vol] 1.88 10*3/uL 0.83-4.51 [facility] Automated lymphocyte count a s percentage of total leukocytesOrdered By: Kary Blakely on 11-26-2023 Lymphocytes/100 WBC Auto (Unsp spec) 34.7 % 19-41 [facility] Basophil percentageOrdered B y: Kary Blakely on 11-26-2023 Basophil percentage 0 SEEN /hpf 0-5 [facility] Basophils/100 WBC (Bld) 0.7 % 0-1 [facility] Bilirubin [Mass/Vol] 0.40 mg/dL 0.20-1.00 [facility] Comment on above: For patients on eltr ombopag therapy, use of Dimension [place] TBIL is not recommended. Chloride [Moles/Vol] 108 mmol/L 98-107 [facility] Eosinophils/100 WBC (Bld) 2.0 % 0-5 [facility] Glucose [Mass/Vol] 94 mg/dL 74-106 [facility] Hemoglobin (Bld) [Mass/Vol] 13.1 g/dL 12.0-15.0 [facility] Monocytes/100 WBC (Bld) 5.9 % 0-10 [facility] Neutrophils (Bld) [#/Vol] 3.1 10*3/uL 2.0-7.7 [facility] Neutrophils/100 WBC (Bld) 56.5 % 47-70 [facility] Potassium [Moles/Vol] 3.6 mmol/L 3.5-5.1 [facility] Protein [Mass/Vol] 7.6 g/dL 6.4-8.2 [facility] Sodium [Moles/Vol] 140 mmol/L 136-145 [facility] WBC (Bld) [#/Vol] 5.4 10*3/uL 4.4-11.0 [facility] Bilirubin Test strip Ql (U)O rdered By: Kary Blakely on 11-26-2023 Bilirubin Ql (U) Negative Negative [facility] Determination of erythrocyte mean corpuscular volume (MCV)Ordered By: Kary Blakely on 11-26-2023 MCV (RBC) [Entitic vol] 84.0 fL 81-99 [facility] Direct bilirubinOrdered By: Karysonia Blakely on 11-26-2023 Bilirubin.direct [Mass/Vol] 0.10 mg/dL 0.00-0.30 [facility] Erythrocyte distribution wid th ratioOrdered By: Kary Blakely on 11-26-2023 Erythrocyte distribution width (RBC) [Ratio] 13.2 % 11.6-14.6 [facility] Erythrocyte distribution wid th standard deviationOrdered By: Karybabs Blakely on 11-26-2023 Erythrocyte distribution width (RBC) [Entitic vol] 40.5 fL 35.1-43.9 [facility] Hematocrit Auto (Bld) [Volum e fraction]Ordered By: Kary Blakely on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 [facility] Comment on above: Performed By: #### Q WAL2, HEMDF, ETOH4, BMP3 #### [facility] [address] [place] [address] Granulocytes/100 WBC (Bld) 65.2 % Normal 40.0-80.0 [facility] Comment on above: Performed By: #### Q WAL2, HEMDF, ETOH4, BMP3 #### [facility] [address] [place] [address] Hematocrit (Bld) [Volume fraction] 40.8 % Normal 35.0-47.0 [facility] Comment on above: Performed By: #### Q WAL2, HEMDF, ETOH4, BMP3 #### [facility] [address] [place] [address] Hemoglobin (Bld) [Mass/Vol] 13.3 g/dL Normal 11.7-16.0 [facility] Comment on above: Performed By: #### Q WAL2, HEMDF, ETOH4, BMP3 #### [facility] [address] [place] [address] Lymphocytes (Bld) [#/Vol] 1.5 10*3/uL Normal 1.0-4.3 [facility] Comment on above: Performed By: #### Q WAL2, HEMDF, ETOH4, BMP3 #### [facility] [address] [place] [address] Lymphocytes/100 WBC (Bld) 25.0 % Normal 20.0-40.0 [facility] Comment on above: Performed By: #### Q WAL2, HEMDF, ETOH4, BMP3 #### [facility] [address] [place] [address] MCH (RBC) [Entitic mass] 27.9 pg Normal 26.0-34.0 [facility] Comment on above: Performed By: #### Q WAL2, HEMDF, ETOH4, BMP3 #### [facility] [address] [place] [address] MCHC 32.6 % Normal 32.0-36.0 [facility] Comment on above: Performed By: #### Q WAL2, HEMDF, ETOH4, BMP3 #### [facility] [address] [place] [address] MCV (RBC) [Entitic vol] 85.6 fL Normal 79.0-98.0 [facility] Comment on above: Performed By: #### Q WAL2, HEMDF, ETOH4, BMP3 #### [facility] [address] [place] [address] Monocytes (Bld) [#/Vol] 0.4 10*3/uL Normal 0.0-0.8 [facility] Comment on above: Performed By: #### Q WAL2, HEMDF, ETOH4, BMP3 #### [facility] [address] [place] [address] Monocytes/100 WBC (Bld) 7.6 % Normal 2.0-10.0 [facility] Comment on above: Performed By: #### Q WAL2, HEMDF, ETOH4, BMP3 #### [facility] [address] [place] [address] Platelet mean volume (Bld) [Entitic vol] 7.2 fL Low 7.4-10.4 [facility] Comment on above: Performed By: #### Q WAL2, HEMDF, ETOH4, BMP3 #### [facility] [address] [place] [address] Platelets (Bld) [#/Vol] 279 10*3/uL Normal 140-440 [facility] Comment on above: Performed By: #### Q WAL2, HEMDF, ETOH4, BMP3 #### [facility] [address] [place] [address] RBC (Bld) [#/Vol] 4.77 10*6/uL Normal 3.80-5.20 [facility] Comment on above: Performed By: #### Q WAL2, HEMDF, ETOH4, BMP3 #### [facility] [address] [place] [address] WBC (Bld) [#/Vol] 5.8 10*3/uL Normal 3.6-10.7 [facility] Comment on above: Performed By: #### Q WAL2, HEMDF, ETOH4, BMP3 #### [facility] [address] [place] [address] No Panel Informationon 02-12 Test Performed by [facility], [address], [place], [place] [address] [facility] Qual [place] 02-12-2022 hCG Qual Preg Negative Normal [facility] Comment on above: Result Comment: Refe rence Range: NEGATIVE Effective 01/17/2020, the reference interval for the qualitative test has been updated. This test detects hCG at concentrations of 10 mIU/L or greater in serum. Performed By: #### Q WAL2, HEMDF, ETOH4, BMP3 ####[facility] [place] [address] Provider Note - ED v3on 01-04 Provider Note - ED v3 Provider Note: Chart Review: HISTORY OF PRESENTING ILLNESS NAILA is a 36 year old Female and was seen by me at 15-Jan-2022 14:16 for a chief complaint of nasal congestion (URI s/s since last night. using OTC claritin at home. nose bleed starting this AM. bleeding controlled now)(1). Other complaints include: Patient presents to the emergency department for evaluation of upper respiratory symptoms for the last 3 days. Of concern was when she developed nosebleed this morning. She was able to stop the bleeding with direct pressure. She has been using longstanding Flonase due to what she describes as eustachian tube dysfunction which she follows with ENT. She has been having chills, subjective fever, nasal congestion, frontal sinus pressure, bilateral earache and the one episode of epistaxis. She is not on any anticoagulants and there is no associated traumatic incident. She denies exposure to COVID-19, influenza, strep or pneumonia. She denies any syncopal episode, dizziness, cough, chest pain, shortness of breath, nausea, vomiting or diarrhea. She is vaccinated with both doses of Pfizer. She has taken Flonase, Benadryl and Claritin with mild improvement in her symptoms. There are no close contacts in the household with similar symptoms. Her symptoms are aggravated by nothing in particular. Her symptoms are moderate in severity and persistent nature.. The historian is the patient. Triage Information: Most recent Vital Sign Value Date Temp (F): 98.1 01-15-2022 13:35 Temp (C): 36.7 01-15-2022 13:35 Heart Rate (beats/min): 82 01-15-2022 13:35 Respirations (breaths/min): 16 01-15-2022 13:35 SpO2 (%): 100 01-15-2022 13:35 BP Systolic (mm Hg): 129 01-15-2022 13:35 BP Diastolic (mm Hg): 70 01-15-2022 13:35 PAST MEDICAL HISTORY CURRENT OR FORMER SUBSTANCE USE: Tobacco/Nicotine Use: never smoker Alcohol Use: denies Drug Use: denies,ALLERGIES/INTOLERANCE S: Allergy Allergen: codeine Type: Drug Reaction: Unknown Allergen: penicillin Type: Drug Reaction: Unknown HEALTH HISTORY: No documented data. 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 HENMT: NC/NT. Nasal mucosa with dried blood at Kiesselbach's plexus on the right, no active bleeding. There is some clear yellow-tinged rhinorrhea bilaterally. Frontal sinus tenderness to percussion, no maxillary sinus tenderness bilaterally. External ears with scaly skin bilaterally. Left TM normal. The right TM has yellow fluid with mild bulging, obscured landmarks and no cone of light. No obvious perforation. Oral mucosa pink and moist. No tonsillar hypertrophy or exudate. No blood in the posterior oropharynx. Airway patent. EYES: Clear bilaterally, pupils equal without injection or drainage. CARDIOVASCULAR: Regular rate and rhythm. No murmurs or resting tachycardia. Strong distal pulse. RESPIRATORY: Lung sounds clear and equal bilaterally. No respiratory distress or conversational dyspnea. GASTROINTESTINAL: Active bowel sounds. Abdomen soft, non-distended, non-tender. No rebound, rigidity or pulsatile mass. MUSCULOSKELETAL: Moves extremities randomly. Sensation intact. Neurovascularly intact. NEUROLOGICAL: Alert and oriented, no focal deficits, no motor or sensory deficits. SKIN: Skin normal color for race, warm, dry and intact. Capillary refill <2 seconds. PSYCHIATRIC: Normal mood and affect. No apparent risk to self or others. CRITICAL CARE VITAL SIGNS: T PRBP SpO2O2(LPM) %FiO2 Method 15-Jan-2022 13:35:[id number] 100 room air, no respiratory support MDM MDM/ED COURSE: Patient was offered influenza a and B and Covid testing which she declines. Shared decision making for no chest x-ray as she does not have a cough, chest pain or shortness of breath and her lung sounds are clear. She does not have a current epistaxis. She was educated on proper technique of her Flonase and continued use in addition to hpyc-zsy-eysktqq symptom management of Benadryl and Claritin with the addition of Omnicef for her superlative otitis media on the right. She reports tolerating Keflex with her penicillin allergy. She is encouraged to contact her PCP next week for outpatient follow-up and she is aware signs and symptoms indicative of reevaluation in the emergency department setting. Patient is well-appearing, nontoxic and appropriate for outpatient treatment and management at the time of exam. Patient departed in stable condition. DISPOSITION Diagnosis/Annotation: ED Dx Name:Suppurative otitis media of right ear Code:H66.41 Name:Acute URI Code:J06. (more content not included)... Normal [facility] Triage - EDon 01-15-2022 Triage - ED Quick Triage: Are You no Have You Given In The Last 6 Weeksno Are You Currently Breastfeedingno Chart Review: ARRIVAL INFORMATION Mode of Arrival: private vehicle CHIEF COMPLAINT NAILA WARREN is a Female patient with a chief complaint of nasal congestion (URI s/s since last night. using OTC claritin at home. nose bleed starting this AM. bleeding controlled now). Onset of the Complaint: 14-Jan-2022 21:00 Triage Date/Time: 15-Jan-2022 13:35 SONA: 4 Pain Rating (0-10): 0 = None Vital Signs: Temperature: 98.1F ( 36.7C) taken noncontact, forehead Blood Pressure: 129/70 Mean: Heart Rate: 82 Respiratory Rate: 16 Pulse Oximetry: 100% on room air, no respiratory support. Weight: 167.5 pounds. Calculated 76.0 kg. (stated) [place] Coma Scale: Best Eye Response: (E4) spontaneous Best Motor Response: (M6) obeys commands Best Verbal Response: (V5) oriented [place] Score: 15 Cough lasting greater than 3 weeks: no Allergies: yes Mask applied: yes Patient has homicidal thoughts: no Risk Screens Suicide Risk Screen In the Past Month: Have you wished you were or wished you could go to sleep and not wake up no In the Past Month: Have you had any actual thoughts of killing yourself no In Your Lifetime: Have you ever done anything, started to do anything, or prepared to do anything to end your life no Interventions: [place] Fall Interventions: LOW INTERVENTIONS: *patient oriented to surroundings and call system, * patient/family falls education completed and documented, *patients fall status communicated during bedside handoff, *whiteboard updated, *mode of toileting discussed with patient, *bed in low position with brakes locked, *call light in reach, * non-skid footwear PAST MEDICAL HISTORY Immunization History: Last Known Tetanus Immunization: Unknown TRAVEL HISTORY Travel History Coronavirus Screening: no exposure or symptoms Travel Exposure History: NO travel to International locations in the past 30 days PAIN Pain Scale Used: ARELIS Pain Rating (0-10): 0 = None Past Medical History: Past Medical History Reviewedyes Electronic Signatures: Kasey Sepulveda (BABATUNDE PRN) (Signed 15-Jan-2022 13:46) Authored: Quick Triage, Risk Screens, Pain, Immunizations, Travel History, Chart Review, Scores, Past Medical History Last Updated: 15-Jan-2022 13:46 by Kasey Sepulveda (RN PRN) [facility] Initial Visit (Otolaryngolog y)on 06-11-2021 Initial Visit (Otolaryngology) Diagnoses/Problems 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 Warren is a 36 year old female presenting in clinic for complaints of ear pain and drainage for the past 3 years. Patient reports frequent ear infections and eczema. Patient is also complaining of sore throat for 3 months. Patient notes at times she has clear drainage from her left ear and has issues with the skin bleeding. Patient endorses having multiple sets of ear tubes as a child. A comprehensive 10-point review of systems was obtained including constitutional, neurological, HEENT, pulmonary, cardiovascular, genito-urinary, and other pertinent systems and was negative except as noted in the HPI. I have reviewed the intake sheet filled out by the patient and signed it. The patient?s current medications, active allergies and list of medical problems were reviewed in the EHR and confirmed electronically. Physical Examination: CONSTITUTIONAL: No acute distress VOICE: No hoarseness or other abnormality RESPIRATION: Breathing comfortably, no stridor CV: No clubbing/cyanosis/edema in hands EYES: EOM intact, sclera clear NEURO: Alert and oriented times 3, Cranial nerves II-XII grossly intact and symmetric bilaterally HEAD AND FACE: Symmetric facial features, no masses or lesions RIGHT EAR: EC dry, with chronic preinflammatory OE appearance, no cerumen, skin with fine desquamation, no visible lesions, external auditory canal patent, tympanic membrane intact, no retraction, no signs of mass, effusion, or infection within the middle ear LEFT EAR: EAC dry, with chronic preinflammatory OE appearance, meatus and conchae with dry skin with fine desquamation, no visible lesions, external auditory canal patent, tympanic membrane intact, no retraction, no signs of mass, effusion, or infection within the middle ear NOSE: Deferred due to Covid-19 pandemic. ORAL CAVITY/OROPHARYNX/LIPS: mild pharyngeal erythema, PHARYNGEAL TREJO: Deferred due to Covid-19 pandemic. NECK/LYMPH: No LAD, no thyroid masses, trachea midline SKIN: Neck and facial skin is without scar or injury PSYCH: Alert and oriented with appropriate mood and affect TMJ exquisitely tender. Diagnostic testing: Bilateral mild bilateral SNHL rising to normal. Excellent SD. I personally reviewed the available patient?s external record and independently reviewed their audiometric testing [and] radiographic imaging through the appropriate viewing software as detailed in my note and agree with the detailed report. Impression: TMJ pain/tenderness Eczema of ear canal Chronic pharyngitis, reflux Recommendation: -- Clobetasol ointment to both meati and EAC, followed by sweet oil --Avoid Qtips --Follow up as needed --See dentist for TMJ pain -- GERD management with PPI I discussed with the patient the complexity of my medical decision making including the treatment and testing rational, indications of their elective procedure and possible adverse effects and/or complications. Based on the provided documentation and my professional assessment of this patient?s multiple chronic conditions, the complexity of evaluation and treatment is moderate. This note was created using speech recognition assessment manager software/or [employer] assessment manager services. Despite proofreading, several typographical errors might be present that might affect the meaning of the content. Please call with any questions. Past Medical History History of Seizures (780.39) (R56.9) Surgical History History of Adenoidectomy History of Appendectomy History of Tonsillectomy Allergies codeine Recorded By: Lynne Esquivel; 06/11/2021 9:40:47 AM Penicillins Recorded By: Lynne Esquivel; 06/11/2021 9:40:47 AM Current Meds Medication NameInstruction Atarax TABS MiraLax 17 GM Oral Packet Zoloft TABS Vitals Vital Signs Recorded: 11Jun2021 09:38AM Gobkhwbesmx28.2 F Lyyhfwnitjn82 Height5 ft 5.5 in Twkuak924 lb 15.94 oz BMI Ubuurkecpc87.76 kg/m2 BSA Calculated1.74 Tobacco Useb) No Fall Screeninga) No falls within the last year 'Scores and Scales' Signatures Electronically signed by : Elisabeth Mathis MD; Jun 11 2021 10:01AM EST (Author) [facility] Visit (Audiology)on 06-11-2021 Follow-up visit Diagnoses/Problems Otalgia of both ears (388.70) (H92.03) Sensorineural hearing loss (SNHL), bilateral (389.18) (H90.3) Patient Discussion/Summary Treatment Plan: 1. Follow up with ENT as recommended. 2. Return to clinic for follow up hearing assessment as recommended. 3. Contact our clinic if there are questions or concerns about her hearing. Time Stamp: [id number] Chief Complaint Hearing Assessment Pinna pain, ear canal pain, throat pain, neck pain Adult Risk ScreeningThere are no spiritual/cultural practices/values/needs that are important to know Initial Fall Risk Screening: NAILA has not fallen in the last 6 months. Her fall did not result in injury. NAILA does not have a fear of falling. She does not need assistance with sitting, standing or walking. Does not need assistance walking in her home. She does not need assistance in an unfamiliar setting. The patient is not using an assistive device. Domestic Violence Screen: Does not feel threatened or abused physically, emotionally or sexually. Do you feel UNSAFE? The patient feels safe in the home. Depression/Suicide Screening: During the past 2 weeks, the patient has not felt down, depressed or hopeless. During the past 2 weeks, the patient has not felt little interest or pleasure in doing things. She does not have a risk of suicide. She has not had thoughts of harming others. Reference Documentation See scanned note Procedure Note: audiogram . History of Present Illness Naila Warren, age 36 years, was seen in clinic on 06/11/2021 for a hearing assessment in conjunction with an ear, nose and throat (ENT) appointment. She was accompanied by her two young daughters. Naila reported bilateral pinna discomfort, pinna eczema, ear canal pain, throat pain, and hearing concerns. She denied ear infections, drainage, tinnitus, noise exposure and dizziness. Naila reported she is undergoing testing for suspected Parkinson's. Patient's preferred language: Brazilian Preferred language of the parent, legal guardian or surrogate decision-maker of this minor or incapacitated patient: Not Applicable No overt signs of domestic violence/neglect/abuse. No referral made to Workers Compensation Analyst. Pain not interfering with optimal level of function or ability to assess and/or treat. Pain Scale rank: 0/10 Pain Scale used: Numeric No referral made to primary care provider (PCP). Factors/Barriers influencing patient's ability to complete assessment or learn: none. Person taught: patient. Readiness to learn: no barriers. Results of Teaching/Counseling: verbalize recall / understanding and teaching complete. Procedure OTOSCOPY Otoscopic inspection revealed clear/red ear canals and visualization of the eardrum bilaterally. IMMITTANCE Normal tympanograms were obtained bilaterally, consistent with a normal moving eardrums and the likely absence of fluid. Acoustic reflexes were attempted but a seal could not be maintained. AUDIOMETRIC TESTING Pure tone audiometry was conducted via insert headphones from 250 Hz - 8000 Hz. Results were consistent with: Right: Mild sensorineural hearing loss rising to normal hearing. Left: Mild hearing loss rising to normal hearing. SPEECH TESTING Speech recognition was within normal limits bilaterally ( Right: 10 dB HL, Left: 20 dB HL) Word understanding was excellent when presented at a conversational level (55 dB HL) in a quiet listening environment bilaterally. Signatures Electronically signed by : KURT Donovan; Jun 11 2021 1:19PM EST (Author) Normal [employer] Tobacco Screening.on Fall risk assessment a) No falls within the last year [facility] Work Phone: Tobacco use status [facility] b) No [facility] Work Phone: TSH without ReflexOrdered By : Riddhi Rangel on 05-11-2021 TSH Qn 1.765 u[IU]/mL 0.465 - 4.680 u[IU]/mL [employer] Work Phone: Test Performed by [facility], [address] [place], [place] [address] [employer] Work Phone: [employer] Phone: Thyroid Stim. Hormoneon 07-0 Thyroid Stim. Hormone 1.765 u[IU]/mL Normal 0.46 5-4.68 0 [employer] Comment on above: Performed By: #### T SH5 #### [employer] [address] [place] [address] CNDSon 04-16-2021 DS HNO ID: [id number] Author: Yann John APRN.CNP Service: Hospital Medicine Author Type: Nurse Practitioner Type: Discharge Summary Filed: 04/16/2021 7:08 PM Note Text: Attestation signed by Rodney Valdez MD at 04/17/2021 8:01 AM DISCHARGE SUMMARY PATIENT NAME: Naila aWrren ADMISSION DATE: 04/14/2021 DISCHARGE DATE: 04/16/2021 Attending Physician: Rodney Valdez,* Code Status: Not on file Highest Readmission Risk Score: 9 The 30 day readmissions risk score is derived from an internally validated risk model which evaluates patient level characteristics, utilization history, medication orders and lab results up until the day of discharge. Patients with a score of 40 or above are considered highest risk for readmission. Specific patient level drivers will be listed at the bottom of the summary. Reason for Hospitalization: convulsions, left arm numbness, stuttering speech, and forgetfulness Diagnosis: Principal Problem: BRADY (generalized anxiety disorder) POA: Unknown Active Problems: Convulsion (HCC) POA: Yes Difficulty with speech POA: Unknown Forgetfulness POA: Unknown Left arm numbness POA: Unknown Resolved Problems: * No resolved hospital problems. * Hospital Course as Described to the Patient: You were admitted for convulsions, left arm numbness, stuttering speech, and forgetfulness. Naila Warren, sharif came to the hospital because you were having convulsions, left arm numbness, stuttering speech, and forgetfulness. You were placed in observation for further work-up and evaluation so that we could monitor your condition. While here, you had blood work that showed no acute abnormalities. You had a MRI of your brain that did not show signs of MS, stroke, or aneursym or other source for your symptoms. The MRI of your cervical spine showed stenosis (degenerative narrowing of the space in your spine) which can press on nerves. You had an EEG that showed no signs of seizure activity. You were evaluated by Neurology and they recommended no further testing at this time and that you can follow up with outpatient physical therapy if you have any back or neck pain. Psychology saw you and you were started on Zoloft and hydroxyzine for your anxiety. At this time we feel it is safe for you to return home. DISCHARGE HOME GOING PLAN: 1. Discharge home 2. Follow up with your Primary Care Provider within 1 week for this visit 3. Follow up with Psychiatry for management of your anxiety. Please call [phone] to schedule this appointment. A referral has been placed for you. 4. Take the Zoloft 25mg once a day in the morning 5. Take the hydroxizine 10mg up to every 12 hours as needed for anxiety. DO NOT DRIVE, OPERATE MACHINERY OR SIGN IMPORTANT DOCUMENTS WHILE TAKING THIS MEDICATION 6. You may use the nicotine gum to assist you in quitting tobacco. Quitting smoking is one of the best things you can do for your health right now 7. Follow up with outpatient physical therapy as needed. You can call [phone] to schedule this. 8. Please consider attending one of the intensive outpatient programs that psychiatry discussed with you. A list of the programs in surrounding cities have been provided to you. 9. Work on increasing your calorie intake as advised by the displayer. Aim for 1800-2000cal/day. You may use a diet supplement in between meals to help achieve this goal. 10. Continue all home medications as previously prescribed 11. Return to the Emergency Department with any change or worsening of symptoms Additional Provider to Provider Information: Principal Problem: BRADY (generalized anxiety disorder) POA: Unknown Convulsion (HCC) POA: Yes Difficulty with speech POA: Unknown Forgetfulness POA: Unknown Left arm numbness POA: Unknown Assessment: Naila Warren is a 35F with a PMHx of anxiety, asthma, and current smoker who presented to the ED with a c/o whole body shaking, stuttering speech, forgetfulness and confusion with LUE numbness. Seen at 3 days ago with negative head CT. Had concerns for MS or lyme disease. She was sent to [facility] for MRI to r/o MS and seizure rule out. On reassessment this morning, pt's tremors and stuttering have completely resolved and found ambulating in room and anxious to be discharged home. Seen by neurology yesterday and this morning who reviewed MRI/MRA and agree this is unlikely physiological and more likely psychological given recent stressors in life including impending break up with boyfriend. Seen by psych yesterday and this morning who agree this is more consistent with conversion d/o but also concerned for anorexia nervosa along with possible mood disorder and PTSD with BRADY and adjustment disorder. She wa (more content not included)... Normal [facility] CONSULT PROGon 04-16-2021 CONSULT PROG HNO ID: [id number] Author: Cris Ziegler APRN.CNP Service: Behavioral Health Author Type: Nurse Practitioner Type: Consult Progress Note Filed: 04/16/2021 7:29 PM Note Text: CL FOLLOW UP - PSYCHIATRY CONSULTATION PROGRESS NOTE To get ahold of service: DAY TIME COVERAGE: Between 8AM to 5PM, contract Dr. Trevon Lara or Cris Ziegler CNP. See contact directory for number. NIGHT AND WEEKEND COVERAGE: After hours (5PM to 8AM) and weekends, call answering service at [phone] SERVICE DATE: April 16, 2021 SERVICE TIME: 12:30 PM PRESENT HISTORY: This patient was seen and interviewed, and there was communication with nursing staff. There was a review of medical and recent medical orders. Patient presented for convulsions and stuttering. Has had negative neurological work up symptoms likely psychogenic. Has not had any periods of these per nursing staff. Patient seen and interviewed in room. Mood anxious, engaged appropriately. Describes feeling ok, worried about how to get better. Denies SI, HI and AVH. Educated on conversion/PNES and recommendation for IOP and establishment with outpatient mental health providers. Expressed understanding and willingness to establish with providers. Discussed concern for eating/exercise habits, denies she is trying to lose weight and states she is just trying to run. Education about signs/symptoms of anorexia nervosa and given information for [facility] program if needed in past. Expressing she has talked to displayer and expressing intent to try to follow recommendations to remain healthy. PATIENT DATA: Generalized Anxiety Disorder Scale (BRADY-7) No flowsheet data found.(0-4) minimal anxiety, (5-9) mild anxiety, (10-14) moderate anxiety, (15-21) severe anxiety Patient Health Questionnaire (PHQ-9) No flowsheet data found.(0-4) minimal depression, (5-9) mild depression, (10-14) moderate depression, (15-19) moderately severe depression, (20-27) severe depression PROMIS [facility] No flowsheet data found. MEDICATIONS: Current Facility-Administered Medications Medication Dose Route Frequency Provider Last Rate Last Admin - albuterol HFA 90 mcg/actuation 2 Puff (PROVENTIL HFA, VENTOLIN HFA) 2 Puff INHALATION q 4 H PRN Radha Dejesus APRN.QC SCIENTIST - acetaminophen 650 mg tab(s) (TYLENOL) 650 mg ORAL q 6 H PRN Radha Dejesus APRN.QC SCIENTIST 650 mg at 04/16/21 0855 - nicotine -- REMOVE patch OTHER DAILY Radha Dejesus APRN.QC SCIENTIST - nicotine - verify patch OTHER q 8 H Radha Dejesus APRN.QC SCIENTIST - nicotine 14 mg/24 hr 1 Patch (NICODERM) 1 Patch TRANSDERMAL DAILY Radha Dejesus APRN.QC SCIENTIST 1 Patch at 04/15/21 0600 - sertraline 25 mg tab(s) (ZOLOFT) 25 mg ORAL DAILY Cris Ziegler APRN.QC SCIENTIST 25 mg at 04/16/21 0854 - nicotine polacrilex 2 mg gum (NICORETTE) 2 mg ORAL q 2 H PRN Cris Ziegler APRN.QC SCIENTIST 2 mg at 04/15/212100 - hydrOXYzine HCl 25 mg tab(s) (ATARAX) 25 mg ORAL q 6 H PRN Cris Ziegler APRN.QC SCIENTIST 25 mg at 04/15/212100 LABS : Lab Results Component Value Date/Time WBC 7.92 04/14/2021 10:09 PM WBC 11.22 (H) 09/06/2016 04:06 PM RBC 4.81 04/14/2021 10:09 PM RBC 3.98 09/06/2016 04:06 PM HCT 44.4 04/14/2021 10:09 PM HCT 35.4 (L) 09/06/2016 04:06 PM MCV 92.3 04/14/2021 10:09 PM MCV 88.9 09/06/2016 04:06 PM MCH 31.0 04/14/2021 10:09 PM MCH 30.2 09/06/2016 04:06 PM MCHC 33.6 04/14/2021 10:09 PM MCHC 33.9 09/06/2016 04:06 PM RDWCV 12.6 04/14/2021 10:09 PM RDWCV 14.0 09/06/2016 04:06 PM PLT 287 04/14/2021 10:09 PM PLT 276 09/06/2016 04:06 PM NEUTP 57.5 04/14/2021 10:09 PM NEUTP 70.5 04/05/2016 05:25 PM LYMPHP 31.9 04/14/2021 10:09 PM LYMPHP 22.8 04/05/2016 05:25 PM MONOP 6.6 04/14/2021 10:09 PM MONOP 4.6 04/05/2016 05:25 PM EODINP 1.8 04/05/2016 05:25 PM BASOP 1.0 04/14/2021 10:09 PM BASOP 0.3 04/05/2016 05:25 PM ABSNEUT 4.56 04/14/2021 10:09 PM ABSNEUT 5.41 04/05/2016 05:25 PM ABSMONO 0.52 04/14/2021 10:09 PM ABSMONO 0.35 04/05/2016 05:25 PM ABSEOSIN 0.21 04/14/2021 10:09 PM ABSEOSIN 0.14 04/05/2016 05:25 PM ABSBASO 0.08 04/14/2021 10:09 PM ABSBASO 0.02 04/05/2016 05:25 PM GLUC 105 (H) 04/14/2021 10:09 PM GLUC 123 (H) 09/06/2016 04:06 PM NA 141 04/14/2021 10:09 PM NA 137 09/06/2016 04:06 PM K 4.1 04/14/2021 10:09 PM K 3.9 09/06/2016 04:06 PM CHLOR 107 (H) 04/14/2021 10:09 PM CHLOR 101 09/06/2016 04:06 PM BUN 14 04/14/2021 10:09 PM BUN 6 (L) 09/06/2016 04:06 PM CREAT 0.63 04/14/2021 10:09 PM CREAT 0.41 (L) 09/06/2016 04:06 PM MG 2.0 04/14/2021 10:09 PM MG 1.9 03/13/2012 06:03 AM TSH 2.070 04/16/2021 06:44 AM TSH 1.101 01/12/2001 03:36 PM CO2 23 04/14/2021 10:09 PM CO2 23 09/06/2016 04:06 PM TPROT 7.2 04/14/2021 10:09 PM TPROT 6.0 09/06/2016 04:06 PM ALB 4.4 04/14/2021 10:09 PM ALB 3.3 (L) 09/06/2016 04:06 PM CA 9.3 04/14/2021 10:09 PM CA 8.2 (L) 09/06/2016 04:06 PM AST 20 04/14/2021 10:09 PM AST 13 09/06/2016 04:06 PM ALT 14 04/14/2021 10:09 PM ALT (more content not included)... [facility] CONSULT PROG HNO ID: [id number] Author: Kyra Corbin APRN.QC SCIENTIST Service: Neurology General Author Type: Nurse Practitioner Type: Consult Progress Note Filed: 04/16/2021 11:08 AM Note Text: MRI Brain unrevealing for acute process. ?Stable bilateral frontal subependymal nodules. Stable arachnoid cyst in the left posterior fossa. 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 -- this is not the cause of her symptoms. Could benefit from PT as OP. W/u unrevealing for neurologic etiology of symptoms. Still suspect psychogenic, in the setting of increased stress. Appreciate psych input. Will s/o. Please call with question. Kyra Corbin APRN.QC SCIENTIST Addendum: 1006 Asked to speak with pt about above results and suspected dx. Test results and POC reviewed with pt. All questions addressed to her satisfaction. No further recs at this time. Kyra Corbin APRN.QC SCIENTIST [facility] NUTRITIONon 04-16-2021 NUTRITION HNO ID: [id number] Author: Dai Hearn RD Service: Nutrition Therapy Author Type: Registered Dietitian Type: Nutrition Filed: 04/16/2021 12:35 PM Note Text: NUTRITION THERAPY INITIAL ASSESSMENT SERVICE DATE: 04/16/2021 SERVICE TIME: 0950 Nutrition Assessment: Recommended Malnutrition Diagnosis: No Malnutrition Identified Nutrition Diagnosis: Problem: Increased nutrient needs Related to: (increased physical needs) As evidenced by: Food/nutrition related history Estimated kilocalorie needs: 1770-2065cal/day (logs 20 miles/week + cross training) Calorie Calculation Method: 30-35 kcals/kg Estimated protein needs (grams): 71-89g (physically active.) Grams protein determined by: 1.2 - 1.5 g/kg Care Plan: Continue current diet Supplements: [employer] 1.0 Education: Calorie needs and risks with excessive exercise. Monitor and Evaluation: Meet greater than 75% of estimated needs;Monitor labs, I/Os, vital signs, weight;Monitor fluid/electrolyte balance;Monitor bowel function Discharge Recommendations: Diet;Oral Supplements Diet: regular diet, aim for 1800-2000cal/day Oral Supplements: utilize supplement between meals if unable to meet calorie goal. HPI: 35 year old female with PMHx of Asthma with COPD exacerbation, depression, and seizure (~20 years ago when ?) present to [facility] for possible seizures (shaking). Neuro following. Psych consulted, ?symptoms related to stress. Nutrition consulted due to pt's excessive exercise routine (~3x/week per boyfriend upon admission to ED). Intake History: Nutrition Intake Prior to Admission: Greater than 75% estimated energy needs Current Intake: Unable to determine Thorough discussion re: diet and exercise. Pt goal is half marathon in Jul 2021, currently avg 20 miles/week + attending cross train classes (more cardio). 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 Discussed resting metabolic needs vs her current physical needs given her active status; goal ~2000cals/day, 60% CHO, 20% FAT, 20% protein. Diet recall shows good variety/calorie intake, emphasized eating every 2-3 hours and being aware of intake. Expressed concern of excessive cardio classes, pt willing to try yoga (good for body and mind) in place of 2 classes/day. Pt already using vegan supplement between meals, encouraged to keep doing so. Diet Orders (From admission, onward) Start Ordered 04/15/21344 DIET REGULAR START NOW 04/15/21338 Anthropometrics: Height: 165.1 cm (5' 5) Weight: 58.5 kg (129 lb) Dosing Weight: 58.5 kg (129 lb) Usual Weight: 61.2 kg (135 lb) (per pt, weighed this ~1 year ago.) Body mass index is 21.47 kg/m?. Normal Weight change percentage over time: No recent weights to reports on. 9# wt loss per wt x 1 year. Wt hx shows wt fluctuating 137-170s. Physical Exam: Subcutaneous fat loss: No fat loss Muscle loss: No muscle loss Potential micronutrient deficiency: No deficiency identified Edema/Ascites: No edema GI Symptoms: None Functional Status: No Change Potential Signs of Inflammation: Chronic condition MNT Billing Type: Initial Assess/15 min 5 units SIGNATURE: Dai Hearn RD PATIENT NAME: Naila Warren DATE: April 16, 2021 TIME: 8:12 AM PAGER: [id number] Normal [facility] TSH SerPl-aCncon 04-16-2021 TSH Qn 2.070 m[IU]/L Normal 0.270-4.20 0 [facility] Comment on above: Order Comment: Speci men Type: URINE SPECIMEN Result Comment: If t he patient is , TSH reference range varies by gestational period: First Trimester (weeks 9-12): 0.180-2.990 mcIU/mL Second Trimester: 0.110-3.980 mcIU/mL Third Trimester: 0.480-4.710 mcIU/mL Ashok Villafuerte et al. A Practical Approach for the Verifications and Determination of Site- and Trimester-Specific Reference Intervals for Thyroid Function tests in . Thyroid, 2019:29:3:412-420. Richie Scott, et al. 2017 Guidelines of the [place] Thyroid [employer] for the Diagnosis and Management of Thyroid Disease during and the . Thyroid, 2017:27:3:315-389. Performed By: #### 2 4356-8 #### [facility] CLIA [id number] [address] [place] [address] VITAMIN B12 BLOODon 04-16-20 Cobalamin (Vitamin B12) [Mass/Vol] 846 pg/mL Normal 232-1,245 [facility] Comment on above: Order Comment: Speci men Type: URINE SPECIMEN Performed By: #### 2 4356-8 #### [facility] CLIA [id number] [address] [place] [address] VITAMIN D 25 HYDROXYon 04-16 25-hydroxyvitamin D3 [Mass/Vol] 84.3 ng/mL Normal 30.0-100.0 [facility] Comment on above: Order Comment: Speci men Type: BLOOD SPECIMEN Result Comment: Clas sification of 25 [place] Vitamin D status: Deficiency: < 20 ng/ml. Insufficientcy: 20-30 ng/ml. Sufficiency: 30-100 ng/ml. Performed By: #### V ITD #### [facility] CLIA [id number] [address] [place] [address] 2019 CORONAVIRUSon 1 SARS-CoV-2 (COVID-19) RNA SHREYAS+probe Ql (Unsp spec) COVID 19 SOURCE PUBLIC HEALTH PROGRAM MANAGER: UPPER RESPIRATORY TRACT SWAB COVID 19 RESULT PUBLIC HEALTH PROGRAM MANAGER: Negative for COVID19 (SARS CoV2) by RT-PCR or equivalent method. This test was developed and its performance characteristics determined by [facility] [place]. This test has been authorized by FDA under an Emergency Use Authorization (EUA). This test has been validated in accordance with the FDA's Guidance Document Policy for Diagnostics Testing in Laboratories Certified to Perform High Complexity Testing under CLIA prior to Emergency use Authorization for Coronavirus Disease 2019 during the Public Health Emergency issued on January 04, 2020. Test performed by [facility], [facility] [place], [address] [place] [address]. Normal [facility] Comment on above: Performed By: #### C OVID #### [facility] CLIA [id number] [address] [place] [address] HEALTH 04-15-2021 ALLIED HEALTH HNO ID: [id number] Author: RT Vijay(R) Service: Radiology Author Type: Packing And Stamping Machine Operator Type: [facility] Filed: 04/15/2021 5:23 PM Note Text: Radiology Service Progress Note DATE OF SERVICE: April 15, 2021 TIME: 5:10 PM PATIENT IDENTITY VERIFICATION COMPLETED USING TWO (2) STANDARD IDENTIFIERS: Name and Date of confirmed by patient verbally and Name and Date of confirmed by identification band. FALL SCREENING: Has the patient had 2 falls in the last year or 1 fall with injury or currently using an Ambulatory Assistive Device (Walker, Cane, Wheelchair, Crutches, etc.)? Inpatient: Screened on floor PATIENT GENDER DATA: Female. status: : No status: N/A PATIENT RELEVANT IMPLANT DATA REVIEWED: Yes ALLERGIES: Reviewed and unchanged CONTRAST ALLERGY: NO. EXAM: MRI - CONTRAST TYPE: GROUP II PERIPHERAL IV DATA: Inpatient - refer to LDA documentation RADIOLOGY DEPARTMENT: MR; Exam(s) Completed: Head: Routine Brain [place] of [place] MRA Spine: Cervical spine SIGNATURE: RT Vijay(R) PATIENT NAME: Naila Warren DATE: April 15, 2021 TIME: 5:10 PM Normal [facility] ALLIED HEALTH HNO ID: [id number] Author: RT Sam(Kassie) Service: Radiology Author Type: Packing And Stamping Machine Operator Type: [facility] Filed: 04/15/2021 3:10 PM Note Text: This patient is scheduled for MRI testing today at 5pm.. Telemetry and infusion pumps are unsafe in the MRI environment. Equipment must be removed prior to transport to MRI Dept. 1. If patient requires monitoring the RN must accompany patient and stay with patient for the duration of exam. 2. If patient requires infusion pump during exam RN must accompany patient to MRI Dept and switch patient [place] MRI [place] equipment. X [phone] 1st floor X [phone] 3rd [place] X [phone] MR Coordinator Normal [facility] CBC W Auto Differential pane l (Bld)on 04-15-2021 Basophils (Bld) [#/Vol] 0.08 10*3/uL Normal <0.11 [facility] Comment on above: Order Comment: Speci men Type: BLOOD SPECIMEN Performed By: #### 5 7021-8 #### [facility] CLIA [id number] [address] [place] [address] Basophils/100 WBC (Bld) 1.0 % Normal [facility] Comment on above: Order Comment: Speci men Type: BLOOD SPECIMEN Performed By: #### 5 7021-8 #### [facility] CLIA [id number] [address] [place] [address] Differential cell count method Nom (Bld) Auto Normal [facility] Comment on above: Order Comment: Speci men Type: BLOOD SPECIMEN Performed By: #### 5 7021-8 #### [facility] CLIA [id number] [address] [place] [address] Eosinophils (Bld) [#/Vol] 0.21 10*3/uL Normal <0.46 [facility] Comment on above: Order Comment: Speci men Type: BLOOD SPECIMEN Performed By: #### 5 7021-8 #### [facility] CLIA [id number] [address] [place] [address] Eosinophils/100 WBC (Bld) 2.7 % Normal [facility] Comment on above: Order Comment: Speci men Type: BLOOD SPECIMEN Performed By: #### 5 7021-8 #### [facility] CLIA [id number] [address] [place] [address] Erythrocyte distribution width (RBC) [Ratio] 12.6 % Normal 11.5-15.0 [facility] Comment on above: Order Comment: Speci men Type: BLOOD SPECIMEN Performed By: #### 5 7021-8 #### [facility] CLIA [id number] [address] [place] [address] Hematocrit (Bld) [Volume fraction] 44.4 % Normal 36.0-46.0 [facility] Comment on above: Order Comment: Speci men Type: BLOOD SPECIMEN Performed By: #### 5 7021-8 #### [facility] CLIA [id number] [address] [place] [address] Hemoglobin (Bld) [Mass/Vol] 14.9 g/dL Normal 11.5-15.5 [facility] Comment on above: Order Comment: Speci men Type: BLOOD SPECIMEN Performed By: #### 5 7021-8 #### [facility] CLIA [id number] [address] [place] [address] IMMATURE GRAN % 0.3 % Normal [facility] Comment on above: Order Comment: Speci men Type: BLOOD SPECIMEN Performed By: #### 5 7021-8 #### [facility] CLIA [id number] [address] [place] [address] IMMATURE GRAN ABS <0.03 Normal <0.10 [facility] Comment on above: Order Comment: Speci men Type: BLOOD SPECIMEN Performed By: #### 5 7021-8 #### [facility] CLIA [id number] [address] [place] [address] Lymphocytes (Bld) [#/Vol] 2.53 10*3/uL Normal 1.00-4.00 [facility] Comment on above: Order Comment: Speci men Type: BLOOD SPECIMEN Performed By: #### 5 7021-8 #### [facility] CLIA [id number] [address] [place] [address] Lymphocytes/100 WBC (Bld) 31.9 % Normal [facility] Comment on above: Order Comment: Speci men Type: BLOOD SPECIMEN Performed By: #### 5 7021-8 #### [facility] CLIA [id number] [address] [place] [address] MCH (RBC) [Entitic mass] 31.0 pg Normal 26.0-34.0 [facility] Comment on above: Order Comment: Speci men Type: BLOOD SPECIMEN Performed By: #### 5 7021-8 #### [facility] CLIA [id number] [address] [place] [address] MCHC (RBC) [Mass/Vol] 33.6 g/dL Normal 30.5-36.0 [facility] Comment on above: Order Comment: Speci men Type: BLOOD SPECIMEN Performed By: #### 5 7021-8 #### [facility] CLIA [id number] [address] [place] [address] MCV (RBC) [Entitic vol] 92.3 fL Normal 80.0-100.0 [facility] Comment on above: Order Comment: Speci men Type: BLOOD SPECIMEN Performed By: #### 5 7021-8 #### [facility] CLIA [id number] [address] [place] [address] Monocytes (Bld) [#/Vol] 0.52 10*3/uL Normal <0.87 [facility] Comment on above: Order Comment: Speci men Type: BLOOD SPECIMEN Performed By: #### 5 7021-8 #### [facility] CLIA [id number] [address] [place] [address] Monocytes/100 WBC (Bld) 6.6 % Normal [facility] Comment on above: Order Comment: Speci men Type: BLOOD SPECIMEN Performed By: #### 5 7021-8 #### [facility] CLIA [id number] [address] [place] [address] Neutrophils (Bld) [#/Vol] 4.56 10*3/uL Normal 1.45-7.50 [facility] Comment on above: Order Comment: Speci men Type: BLOOD SPECIMEN Performed By: #### 5 7021-8 #### [facility] CLIA [id number] [address] [place] [address] Neutrophils/100 WBC (Bld) 57.5 % Normal [facility] Comment on above: Order Comment: Speci men Type: BLOOD SPECIMEN Performed By: #### 5 7021-8 #### [facility] CLIA [id number] [address] [place] [address] Nucleated RBC (Bld) [#/Vol] 10*3/uL Normal <0.01 [facility] Comment on above: Order Comment: Speci men Type: BLOOD SPECIMEN Performed By: #### 5 7021-8 #### [facility] CLIA [id number] [address] [place] [address] Nucleated RBC/100 WBC (Bld) [Ratio] 0.0 /100 WBC Normal 0.0 [facility] Comment on above: Order Comment: Speci men Type: BLOOD SPECIMEN Performed By: #### 5 7021-8 #### [facility] CLIA [id number] [address] [place] [address] Platelet mean volume (Bld) [Entitic vol] 8.9 fL Low 9.0-12.7 [facility] Comment on above: Order Comment: Speci men Type: BLOOD SPECIMEN Performed By: #### 5 7021-8 #### [facility] CLIA [id number] [address] [place] [address] Platelets (Bld) [#/Vol] 287 10*3/uL Normal 150-400 [facility] Comment on above: Order Comment: Speci men Type: BLOOD SPECIMEN Performed By: #### 5 7021-8 #### [facility] CLIA [id number] [address] [place] [address] RBC (Bld) [#/Vol] 4.81 10*6/uL Normal 3.90-5.20 [facility] Comment on above: Order Comment: Speci men Type: BLOOD SPECIMEN Performed By: #### 5 7021-8 #### [facility] CLIA [id number] [address] [place] [address] WBC (Bld) [#/Vol] 7.92 10*3/uL Normal 3.70-11.00 [facility] Comment on above: Order Comment: Speci men Type: BLOOD SPECIMEN Performed By: #### 5 7021-8 #### [facility] CLIA [id number] [address] [place] [address] CK CREATINE KINASEon 021 CK [Catalytic activity/Vol] 46 U/L Normal 42-196 [facility] Comment on above: Order Comment: Speci men Type: BLOOD SPECIMEN Performed By: #### C K #### [facility] CLIA [id number] [address] [place] [address] CONSULTon 04-15-2021 CONSULT HNO ID: [id number] Author: Cris Ziegler APRN.CNP Service: Behavioral Health Author Type: Nurse Practitioner Type: Consults Filed: 04/15/2021 6:21 PM Note Text: CL NEW - PSYCHIATRY INITIAL CONSULTATION NOTE To get ahold of service: DAY TIME COVERAGE: Between 8AM to 5PM, contract Dr. Trevon Lara or Cris Ziegler CNP. See hospital directory for numbers NIGHT AND WEEKEND COVERAGE: After hours (5PM to 8AM) and weekends, call answering service at [phone] SERVICE DATE: April 15, 2021 SERVICE TIME: 3:30 PM CONSULTING SERVICE : Psychiatry, requested by Dr. Rodney Valdez,*'s team REASON FOR CONSULTATION: 35F hx anxiety, asthma, smoker here for seizure like activity (full body tremors) with slurred and stuttering speech, urinary incontinence, and forgetfulness. Symptoms started once significant other reported he was going to end the relationship. Pt admits to several significant recent stressors. Neuro saw pt and agrees it's likely psych related, but pending MRI/MRA IDENTIFYING INFO: Ms. Warren is a 35 year old female from [place], [place]. HISTORY OF PRESENT ILLNESS : Patient is a 35 year old female with a past medical history asthma, allergies, depression, and ETOH abuse [sober 1 year]. Presented to the hospital for chief complaint of convulsions, left arm numbness, forgetfulness and stuttering. Patient seen and interviewed in room engaged readily. Did have periods of full body shaking for about 5-10 seconds though would continue to talk to provider and answer questions/follow thread of conversation. Happened 3 times during interview. Affect bright and anxious. Does endorse anxiety though reflects that she has a lot going on and feels that medication she has received [lorazepam and hydroxyzine] has been helpful. Initially focused that physical issues as major stressors. Describes shaking and issues with memory/focus. 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 Emotions validated and support provided. Also provided education on how anxiety can worsen symptoms and even potentially be cause if they are related to psychogenic/conversion disorder. Patient accepting of education though reflects belief it is likely physical cause though began to talk more about mood/past psychiatric treatment. Identifies stressors such as relapse one year ago, move away from support system, job loss, loss of mother in 2014 and that she had been placed in foster care system at age [age] due to mother's substance use and lived in 12 different foster homes before turning 16. Described past history of being treated with sertraline in past and was open to going back on a small dose of it. Describes trouble staying asleep at night, unsure of why she awakes. Denies symptoms of PTSD. Denies concern for depressed mood. Denies concern with appetite and states she likes to run and will run 20 miles a week. Describes wanting to stay healthy for herself and her children. Denies SI, HI and AVH. When asked about relationship difficulties: originally denied and stated everything is good. Though did disclose that they are going through a rough patch. Reports that she had not been truthful about having had recent relapse, losing job or reason she had lost job which has put strain on relationship. Describes they are working through this and hopeful about relationship moving forward. Denies any safety concerns. Is not currently active with any mental health providers. Has been treated in past, including having been admitted psychiatrically after suicide attempt by cutting at age 7. Denies any recent thoughts of /suicide or to harm self. Anxious about disclosing psych issues, frequently stating she is not pscyho. Much support and reassurance provided. Asked about any supplements she is taking, does describe taking dietary collegian supplements and vitamins worried they could be effecting mood but appears to have been taking all of these supplements for awhile outside of recently starting vitamin C. No concerning supplement noted. Discussed plan of care going forward. Discussed how medication and therapy would likely be beneficial in future regardless of results of MRI. Discussed that if MRI negative for cause of physical symptoms may need more intensive treatment such as IOP. Will await neurology work up/clearance. When patient told of this expressed understanding, though also asked about potential for lyme disease reports living near [place]ed area and having found ticks on self/animals. Made nursing aware of patient's concerns to be brought up with other caregivers. STRESSORS: 1. Job loss 2. Starting new job 3. Relationship difficulties 4. Limited support/moved away from support system COLLATERAL INFORMATION: I reviewed chart and spoke to tyra (more content not included)... Normal [facility] CONSULT HNO ID: [id number] Author: Hien Lopez APRN.QC SCIENTIST Service: Neurology General Author Type: Nurse Practitioner Type: Consults Filed: 04/15/2021 3:53 PM Note Text: INITIAL CONSULT - GENERAL NEUROLOGY SERVICE DATE: 04/15/2021 SERVICE TIME: 1440 Team Requesting Consult: Primary Current Attending Provider: Rodney Valdez, Neurology was asked by the Primary team to evaluate Naila Warren, a 35 year old female for a chief complaint of convulsions, left arm numbness, forgetfulness and stuttering. Our recommendations of care will be communicated by shared medical record. Reason for Evaluation: convulsions, left arm numbness, forgetfulness and stuttering Subjective HPI: This is Ms. Naila Warren a 35 year old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 administration of 12 ml of Dotarem MQ: [id number] COMPARISON: MRI brain 03/10/2012. RESULT: BRAIN: Limitation: Examination is limited due to patient motion artifact. Acute Change: There is no evidence of restricted diffusion to suggest an acute infarct. Hemorrhage: No evidence of prior parenchymal hemorrhage on the gradient echo images. Mass Lesion/ Mass Effect: Stable focal extra-axial CSF collection in the left posterior fossa posterior to the cerebellum and vermis consistent with an arachnoid cyst. Only minimal is stable mass effect on the adjacent left cerebellum. No evidence of an intra-axial mass or other extra-axial fluid collection. No midline shift. There are subcentimeter subependymal nodules with marie matter signal on all pulse sequences along the frontal horns lateral ventricles, two on the right and one on the left that appears stable. No definite abnormal contrast enhancement given the patient motion artifact. Chronic Change: The white matter is within normal limits of signal intensity for age. Parenchyma: No significant volume loss for age. The brain parenchyma is otherwise within normal limits of signal intensity and morphology. Ventricles: Normal caliber and morphology. Skull Base: Hypothalamic and pituitary region are grossly normal. Craniocervical junction is normal. There is no Chiari I malformation. No significant marrow replacement process. Vasculature: Major intracranial arterial structures, and dural venous sinuses show typical flow void, suggesting patency by spin echo criteria. Other: The visualized paranasal sinuses and mastoid air cells are clear. The orbits and extracranial soft tissues are unremarkable. INTRACRANIAL MRA: The MRA of the head is mildly limited due to patient motion artifact. Given this constraint, the MRA of the head is within normal limits of variation. The right posterior commuting artery is dominant and the P1 segment of the posterior cerebral artery is hypoplastic, both which which are normal variants. There is no evidence of significant stenosis, definite aneurysm, or other vascular abnormality. The distal internal carotid, distal vertebral, basilar, and proximal cerebral arteries are patent. IMPRESSION: 1. No evidence of acute ischemic infarct. No definite acute intracranial process. No imaging evidence of a demyelinating process. 2. Stable bilateral frontal subependymal nodules the primary differential considerations are greater matter heterotopia or subependymal hamartomas (commonly seen with tuberous sclerosis). 3. Stable arachnoid cyst in the left posterior fossa. 4. MRA of the head is within normal limits of variation as detailed above. Sewing Line Baler: [facility] Transcribe Date/Time: Apr 15 2021 6:52P Dictated by : SOBEIDA ESPANA MD This examination was interpreted and the report reviewed and electronically signed by: SOBEIDA ESPANA MD on Apr 15 2021 7:10PM EST [id number] Normal [facility] MRI BRAIN WO/W IVCONon 04-15 MRI BRAIN WO/W IVCON * * *Final Report* * * DATE OF EXAM: Apr 15 2021 6:20PM [facility] 0295 - MRI BRAIN WO/W IVCON / PROCEDURE REASON: Speech difficulty * * * * Physician Interpretation * * * * EXAMINATION: MRI BRAIN WITHOUT AND WITH IV CONTRAST, MRA BRAIN CONTRAST CLINICAL HISTORY: Left arm numbness. Stuttering speech. TECHNIQUE: Routine brain MRI protocol without and with contrast including diffusion images. Intracranial 3D [id number] MRA with post-processing performed at the modality and 2D multiplanar and 3D maximum intensity projections were created, reviewed and archived. Contrast: IV administration of 12 ml of Dotarem MQ: [id number]_4 COMPARISON: MRI brain 03/10/2012. RESULT: BRAIN: Limitation: Examination is limited due to patient motion artifact. Acute Change: There is no evidence of restricted diffusion to suggest an acute infarct. Hemorrhage: No evidence of prior parenchymal hemorrhage on the gradient echo images. Mass Lesion/ Mass Effect: Stable focal extra-axial CSF collection in the left posterior fossa posterior to the cerebellum and vermis consistent with an arachnoid cyst. Only minimal is stable mass effect on the adjacent left cerebellum. No evidence of an intra-axial mass or other extra-axial fluid collection. No midline shift. There are subcentimeter subependymal nodules with marie matter signal on all pulse sequences along the frontal horns lateral ventricles, two on the right and one on the left that appears stable. No definite abnormal contrast enhancement given the patient motion artifact. Chronic Change: The white matter is within normal limits of signal intensity for age. Parenchyma: No significant volume loss for age. The brain parenchyma is otherwise within normal limits of signal intensity and morphology. Ventricles: Normal caliber and morphology. Skull Base: Hypothalamic and pituitary region are grossly normal. Craniocervical junction is normal. There is no Chiari I malformation. No significant marrow replacement process. Vasculature: Major intracranial arterial structures, and dural venous sinuses show typical flow void, suggesting patency by spin echo criteria. Other: The visualized paranasal sinuses and mastoid air cells are clear. The orbits and extracranial soft tissues are unremarkable. INTRACRANIAL MRA: The MRA of the head is mildly limited due to patient motion artifact. Given this constraint, the MRA of the head is within normal limits of variation. The right posterior commuting artery is dominant and the P1 segment of the posterior cerebral artery is hypoplastic, both which which are normal variants. There is no evidence of significant stenosis, definite aneurysm, or other vascular abnormality. The distal internal carotid, distal vertebral, basilar, and proximal cerebral arteries are patent. IMPRESSION: 1. No evidence of acute ischemic infarct. No definite acute intracranial process. No imaging evidence of a demyelinating process. 2. Stable bilateral frontal subependymal nodules the primary differential considerations are greater matter heterotopia or subependymal hamartomas (commonly seen with tuberous sclerosis). 3. Stable arachnoid cyst in the left posterior fossa. 4. MRA of the head is within normal limits of variation as detailed above. Sewing Line Baler: CARLEY Transcribe Date/Time: Apr 15 2021 6:52P Dictated by : SOBEIDA ESPANA MD This examination was interpreted and the report reviewed and electronically signed by: SOBEIDA ESPANA MD on Apr 15 2021 7:10PM EST [id number] Normal [facility] MRI CERVICAL SPINE WO/W IVCO Non 04-15-2021 MRI CERVICAL SPINE WO/W IVCON * * *Final Report* * * DATE OF EXAM: Apr 15 2021 6:20PM BROCK [id number] - MRI CERVICAL SPINE WO/W IVCON / PROCEDURE REASON: Motor neuron disease * * * * Physician Interpretation * * * * EXAMINATION: MRI CERVICAL SPINE WITHOUT AND WITH IV CONTRAST CLINICAL HISTORY: Left arm numbness. Stuttering speech. Evaluate for motor neuron disease or demyelinating disease. TECHNIQUE: Routine cervical spine MR protocol without and with intravenous gadolinium. MQ: [id number] Contrast: IV administration of 12 ml of Dotarem COMPARISON: No prior available. RESULT: Limitation patient motion artifact noted on multiple sequences. Counting reference: Craniocervical junction. Anatomic Variants: None. Localizer images: No additional findings. Alignment: Alignment is within normal limits. Craniocervical junction: Craniocervical junction is within normal limits. Cord: No definite abnormal signal in the cervical cord given the patient motion artifact. No evidence of abnormal cord enhancement. Bone marrow signal/fracture: There is multilevel cervical stenosis due to congenitally short pedicles. No evidence of pathologic marrow infiltration. No evidence of prior fracture. Cervical soft tissues: The paraspinal soft tissues are within normal limits. C2-C3: Congenital stenosis. Foramina are patent. C3-C4: Congenital stenosis. Foramina are patent. C4-C5: Possible small posterior central disc protrusion. Congenital stenosis. Overall moderate central canal stenosis with probable mild cord deformity. C5-C6: Possible mild disc osteophyte complex. Congenital stenosis. Overall moderate central canal stenosis with probable mild cord deformity. C6-C7: Canal and foramina are patent. C7-T1: Canal and foramina are patent. IMPRESSION: 1. No definite imaging evidence of an evolving process given the patient motion artifact. 2. Multilevel congenital stenosis. Multilevel central canal stenosis due to congenital changes and degenerative disc disease as detailed above. Anatomic Variant: None. Assume 7 cervical vertebrae with counting from the craniocervical junction. Sewing Line Baler: CARLEY Transcribe Date/Time: Apr 15 2021 7:31P Dictated by : SOBEIDA ESPANA MD This examination was interpreted and the report reviewed and electronically signed by: SOBEIDA ESPANA MD on Apr 15 2021 7:45PM EST [id number] Normal [facility] Magnesium SerPl-mCncon 04-15 Magnesium [Mass/Vol] 2.0 mg/dL Normal 1.7-2.3 [facility] Comment on above: Order Comment: Speci men Type: BLOOD SPECIMEN Performed By: #### 1 9123-9, 14644-2 #### [facility] CLIA [id number] [address] [place] [id number] NURSING PROGon 04-15-2021 NURSING PROG HNO ID: [id number] Author: Kyra Everett RN Service: ? Author Type: Registered Nurse Type: Nursing Progress Note Filed: 04/15/2021 8:54 AM Note Text: Nursing Progress Note Patient Name: Naila Warren [facility] Patient incontinent of urine. Continues to have episodic whole body tremors. Responsive throughout episodes. Continued stuttering of speech. No other new symptoms noted. PUBLIC HEALTH PROGRAM MANAGER notified. This note was completed by: Kyra Woods [facility] NURSING PROG HNO ID: [id number] Author: Kyra Everett RN Service: ? Author Type: Registered Nurse Type: Nursing Progress Note Filed: 04/15/2021 8:33 AM Note Text: Nursing Progress Note Patient Name: Naila Warren [facility] Patient call light on. Tech called RN to the bedside. Patient shaking all over her body. Responsive and appropriate, alert and orient x 3. No incontinence. No postictal signs or symptoms. VSS. Neuros intact. PUBLIC HEALTH PROGRAM MANAGER notified. Will continue to monitor. Addendum 0810am: Patient noted to have stuttering speech. No other new symptoms. This note was completed by: Kyra Everett [facility] NURSING PROG HNO ID: [id number] Author: Claire Richards RN Service: Nursing Author Type: Registered Nurse Type: Nursing Progress Note Filed: 04/15/2021 4:17 AM Note Text: Siderails padded, pt cautioned to call for assistance before ambulating. Notified central sterile technician of newly-ordered EEG. RN will continue to monitor. Normal [facility] NURSING PROG HNO ID: [id number] Author: Claire Richards RN Service: Nursing Author Type: Registered Nurse Type: Nursing Progress Note Filed: 04/15/2021 3:34 AM Note Text: Verbal order per PUBLIC HEALTH PROGRAM MANAGER pt allowed to eat/drink, provided water and boxed lunch. Pt resting at this time. Normal [facility] TOX SCREEN ROUT URon 021 Amphetamines Confirm (U) [Mass/Vol] Negative Normal Negative [facility] Comment on above: Order Comment: Speci men Type: BLOOD SPECIMEN Result Comment: Cuto ff threshold at 1000 ng/mL. Performed By: #### C K #### [facility] CLIA [id number] [address] [place] [address] BARBITURATES, URINE Negative Normal Negative [facility] Comment on above: Order Comment: Speci men Type: BLOOD SPECIMEN Result Comment: Cuto ff threshold at 200 ng/mL. Performed By: #### C K #### [facility] CLIA [id number] [address] [place] [address] BENZODIAZEPINES, UR Negative Normal Negative [facility] Comment on above: Order Comment: Speci men Type: BLOOD SPECIMEN Result Comment: Cuto ff threshold at 200 ng/mL. Performed By: #### C K #### [facility] CLIA [id number] [address] [place] [address] CANNABINOIDS,URINE Negative Normal Negative [facility] Comment on above: Order Comment: Speci men Type: BLOOD SPECIMEN Result Comment: Cuto ff threshold at 50 ng/mL. Performed By: #### C K #### [facility] CLIA [id number] [address] [place] [address] Cocaine Ql (U) Negative Normal Negative [facility] Comment on above: Order Comment: Speci men Type: BLOOD SPECIMEN Result Comment: Cuto ff threshold at 300 ng/mL. Performed By: #### C K #### [facility] CLIA [id number] [address] [place] [address] Ethanol (U) [Mass/Vol] <11 Normal <11 [facility] Comment on above: Order Comment: Speci men Type: BLOOD SPECIMEN Performed By: #### C K #### [facility] CLIA [id number] [address] [place] [address] Opiates Screen Ql (U) Negative Normal Negative [facility] Comment on above: Order Comment: Speci men Type: BLOOD SPECIMEN Result Comment: Cuto ff threshold at 300 ng/mL. Performed By: #### C K #### [facility] CLIA [id number] [address] [place] [address] oxyCODONE cutoff Screen (U) [Mass/Vol] Negative Normal Negative [facility] Comment on above: Order Comment: Speci men Type: BLOOD SPECIMEN Result Comment: Cuto ff threshold at 100 ng/mL. Performed By: #### C K #### [facility] CLIA [id number] [address] [place] [address] Phencyclidine Ql (U) Negative Normal Negative [facility] Comment on above: Order Comment: Speci men Type: BLOOD SPECIMEN Result Comment: Cuto ff threshold at 25 ng/mL. Performed By: #### C K #### [facility] CLIA [id number] [address] [place] [address] Urinalysis complete panel (U )on 04-15-2021 Bacteria LM.HPF (Urine sed) [#/Area] None Seen Normal None Seen [facility] Comment on above: Order Comment: Speci men Type: URINE SPECIMEN Performed By: #### 2 4356-8 #### [facility] CLIA [id number] [address] [place] [address] Bilirubin Ql (U) Negative Normal Negative [facility] Comment on above: Order Comment: Speci men Type: URINE SPECIMEN Performed By: #### 2 4356-8 #### [facility] CLIA [id number] [address] [place] [address] Clarity (Unsp spec) Clear Normal Clear [facility] Comment on above: Order Comment: Speci men Type: URINE SPECIMEN Performed By: #### 2 4356-8 #### [facility] CLIA [id number] [address] [place] [address] Color (U) Yellow Normal Yellow [facility] Comment on above: Order Comment: Speci men Type: URINE SPECIMEN Performed By: #### 2 4356-8 #### [facility] CLIA [id number] [address] [place] [address] Epithelial cells LM.HPF (Urine sed) [#/Area] 2.3 /[HPF] Normal [facility] Comment on above: Order Comment: Speci men Type: URINE SPECIMEN Performed By: #### 2 4356-8 #### [facility] CLIA [id number] [address] [place] [address] Glucose Test strip (U) [Mass/Vol] Negative Normal Negative [facility] Comment on above: Order Comment: Speci men Type: URINE SPECIMEN Performed By: #### 2 4356-8 #### [facility] CLIA [id number] [address] [place] [address] Hemoglobin Ql (U) Negative Normal Negative [facility] Comment on above: Order Comment: Speci men Type: URINE SPECIMEN Performed By: #### 2 4356-8 #### [facility] CLIA [id number] [address] [place] [address] Hyaline casts (Urine sed) [#/Area] 0 /[LPF] Normal 0 /LPF [facility] Comment on above: Order Comment: Speci men Type: URINE SPECIMEN Performed By: #### 2 4356-8 #### [facility] CLIA [id number] [address] [place] [address] Ketones Ql (U) Negative Normal Negative [facility] Comment on above: Order Comment: Speci men Type: URINE SPECIMEN Performed By: #### 2 4356-8 #### [facility] CLIA [id number] [address] [place] [address] Leukocyte esterase Test strip Ql (U) Negative Normal Negative [facility] Comment on above: Order Comment: Speci men Type: URINE SPECIMEN Performed By: #### 2 4356-8 #### [facility] CLIA [id number] [address] [place] [address] Nitrite Ql (U) Negative Normal Negative [facility] Comment on above: Order Comment: Speci men Type: URINE SPECIMEN Performed By: #### 2 4356-8 #### [facility] CLIA [id number] [address] [place] [address] pH (U) 6.5 [pH] Normal 5.0-8.0 [facility] Comment on above: Order Comment: Speci men Type: URINE SPECIMEN Performed By: #### 2 4356-8 #### [facility] CLIA [id number] [address] [place] [address] Protein (U) [Mass/Vol] Negative Normal Negative [facility] Comment on above: Order Comment: Speci men Type: URINE SPECIMEN Performed By: #### 2 4356-8 #### [facility] CLIA [id number] [address] [place] [address] RBC LM.HPF (Urine sed) [#/Area] 0-3 /HPF Normal 0-3 /HPF [facility] Comment on above: Order Comment: Speci men Type: URINE SPECIMEN Performed By: #### 2 4356-8 #### [facility] CLIA [id number] [address] [place] [address] Specific gravity (U) [Rel density] 1.010 Normal 1.005-1.03 0 [facility] Comment on above: Order Comment: Speci men Type: URINE SPECIMEN Performed By: #### 2 4356-8 #### [facility] CLIA [id number] [address] [place] [address] Urobilinogen Ql (U) 1.0 EU/dL Normal 0.2-1.0 EU/dL [facility] Comment on above: Order Comment: Speci men Type: URINE SPECIMEN Performed By: #### 2 4356-8 #### [facility] CLIA [id number] [address] [place] [id number] WBC LM.HPF (Urine sed) [#/Area] 0-5 /HPF Normal 0-5 /HPF [facility] Comment on above: Order Comment: Speci men Type: URINE SPECIMEN Performed By: #### 2 4356-8 #### [facility] CLIA [id number] [address] [place] [address] ED NOTEon 04-14-2021 ED NOTE HNO ID: [id number] Author: Daniel Vizcaino RN Service: Emergency Medicine Author Type: Registered Nurse Type: ED Notes Filed: 04/14/2021 9:56 PM Note Text: Pt was at for shaking today. Pt has come to this ER for same symptoms. She was removed from her car in a w/c and brought ot her room. Seizure precautions started. Normal [facility] ED NOTE HNO ID: [id number] Author: Rodney Wells RN Service: ? Author Type: Registered Nurse Type: ED Notes Filed: 04/14/2021 9:50 PM Note Text: Bed: 16-ED Expected date: Expected time: Means of arrival: Comments: TRIAGE Normal [facility] Hep C Antibodyon 04-10-2021 Hep C Antibody Not detected Normal Not Detected [facility] [employer] Comment on above: Result Comment: Patients with DETECTED Hepatitis C Ab results should have a new specimen submitted for supplemental testing with a Hepatitis C Quantitative RNA assay (viral load), if clinically indicated. Performed By: #### C MP3, HEMOG, HA1C2, LIPD2, TSH5 #### [employer] [address] [place] [address] #### VD25H #### [employer] [address] [place] [address] #### HEPC #### [employer] [address] [place] [phone] CBCOrdered By: Carmen gramajo on 04-09-2021 Hematocrit (Bld) [Volume fraction] 40.0 % 35.0 - 47.0 % [facility] Work Phone: [phone] Hemoglobin.gastrointe stinal spec 1 Ql (Stl) 13.7 g/dL 11.7 - 16.0 g/dL [facility] Work Phone: Interpretation and review of laboratory results Abnormal [facility] Work Phone: MCH (RBC) [Entitic mass] 31.0 pg 26.0 - 34.0 pg [facility] Work Phone: MCHC (RBC) [Mass/Vol] 34.3 % 32.0 - 36.0 % [facility] Work Phone: MCV (RBC) [Entitic vol] 90.4 fL 79.0 - 98.0 fL [facility] Work Phone: Platelet distribution width (Bld) [Ratio] 13.0 % 11.5 - 14.5 % [facility] Work Phone: Platelet mean volume (Bld) [Entitic vol] 6.1 fL Low 7.4 - 10.4 fL [facility] Work Phone: 222 Platelets (Bld) [#/Vol] 283 10*3/uL 140 - 440 10*3/uL [facility] Work Phone: 222 RBC (Bld) [#/Vol] 4.42 10*6/uL 3.80 - 5.20 10*6/uL [facility] Work Phone: 222 WBC (Bld) [#/Vol] 7.6 10*3/uL 3.6 - 10.7 10*3/uL [employer] Work Phone: Test Performed by [facility], [address] , [place], [place] [address] [facility] Work Phone: [facility] Work Phone: Comp Metabolic Panelon 04-09 ALP [Catalytic activity/Vol] 55 U/L Normal 38-126 [facility] Comment on above: Performed By: #### C MP3, HEMOG, HA1C2, LIPD2, TSH5 #### [facility] [address] [place] [address] #### VD25H #### [facility] [address] [place] [address] #### HEPC #### [address] [phone] ALT [Catalytic activity/Vol] 22 U/L Normal 0-34 [facility] Comment on above: Result Comment: The ALT test is performed by an updated assay method. Please note that the reference intervals have been changed and are now sex specific. Performed By: #### C MP3, HEMOG, HA1C2, LIPD2, TSH5 #### [facility] [address] [place] [address] #### VD25H #### [place] [address] [place] [address] #### HEPC #### [address] [address] Calcium [Mass/Vol] 9.3 mg/dL Normal 8.4-10.4 [facility] Comment on above: Performed By: #### C MP3, HEMOG, HA1C2, LIPD2, TSH5 #### [address] [place] [address] #### VD25H #### [place] [address] [place] [address] #### HEPC #### [address] [address] Glucose [Mass/Vol] 95 mg/dL Normal 70-100 [facility] Comment on above: Performed By: #### C MP3, HEMOG, HA1C2, LIPD2, TSH5 #### [facility] [address] [place] [address] #### VD25H #### [place] [address] [place] [address] #### HEPC #### [address] [place] [address] Urea nitrogen [Mass/Vol] 15 mg/dL Normal 7-20 [facility] Comment on above: Performed By: #### C MP3, HEMOG, HA1C2, LIPD2, TSH5 #### [facility] [address] [place] [address] #### VD25H #### [facility] [address] [place] [address] #### HEPC #### [address] [address] Anion gap [Moles/Vol] 5 mmol/L Normal 3-13 [facility] Comment on above: Performed By: #### C MP3, HEMOG, HA1C2, LIPD2, TSH5 #### [facility] [address] [place] [address] #### VD25H #### [place] [address] [place] [address] #### HEPC #### [address] [phone] AST [Catalytic activity/Vol] 26 U/L Normal 15-46 [facility] Comment on above: Performed By: #### C MP3, HEMOG, HA1C2, LIPD2, TSH5 #### [facility] [address] [place] [address] #### VD25H #### [facility] [address] [place] [address] #### HEPC #### [address] [address] Bilirubin [Mass/Vol] 0.3 mg/dL Normal 0.2-1.3 [facility] Comment on above: Performed By: #### C MP3, HEMOG, HA1C2, LIPD2, TSH5 #### [facility] [address] [place] [address] #### VD25H #### [place] [address] [place] [address] #### HEPC #### [address] CO2 [Moles/Vol] 29 mmol/L Normal 22-30 [facility] Comment on above: Performed By: #### C MP3, HEMOG, HA1C2, LIPD2, TSH5 #### [facility] [address] [place] [address] #### VD25H #### [facility] [address] [place] [address] #### HEPC #### [address] Creatinine [Mass/Vol] 0.64 mg/dL Normal 0.52-1.25 [facility] Comment on above: Performed By: #### C MP3, HEMOG, HA1C2, LIPD2, TSH5 #### [facility] [address] [place] [address] #### VD25H #### [facility] [address] [place] [facility] [place] [address] #### HEPC #### [address] eGFR OTHER > 90.0 Normal >60 [facility] Comment on above: Result Comment: KDIG O guidelines provide the following GFR categories: Stage GFR(ml/min/1.73 m2) Terms G1 >=90 Normal or high G2 60-89 Mildly decreased* G3a 45-59 Mildly to moderately decreased G3b 30-44 Moderately to severely decreased G4 15-29 Severely decreased G5 <15 Kidney failure *Relative to young adult level. In the absence of evidence of kidney damage, neither GFR category G1 nor G2 fulfill the criteria for CKD. The CKD-EPI equation is validated in individuals 18 years of age and older. Currently the best equation for estimating glomerular filtration rate (GFR) from serum creatinine in children is the Bedside Daugherty equation. It is less accurate in patients with extremes of muscle mass, restriction of dietary protein, ingestion of creatine, extra-renal metabolism of creatinine, or treatment with medications that affect renal tubular creatinine secretion. Performed By: #### C MP3, HEMOG, HA1C2, LIPD2, TSH5 #### [facility] [address] [place] [address] #### VD25H #### [facility] [address] [place] [address] #### HEPC #### [address] [place] [address] GFR/1.73 sq M.predicted among blacks MDRD (S/P/Bld) [Vol rate/Area] mL/min/{1.73_m2} Normal >60 [facility] Comment on above: Performed By: #### C MP3, HEMOG, HA1C2, LIPD2, TSH5 #### [facility] [address] [place] [address] #### VD25H #### [facility] [address] [place] [address] #### HEPC #### [address] [phone] Protein [Mass/Vol] 7.1 g/dL Normal 6.3-8.2 [facility] Comment on above: Performed By: #### C MP3, HEMOG, HA1C2, LIPD2, TSH5 #### [facility] [address] [place] [address] #### VD25H #### [facility] [address] [place] [address] #### HEPC #### [address] [address] Chloride [Moles/Vol] 105 mmol/L Normal 98-107 [facility] Comment on above: Performed By: #### C MP3, HEMOG, HA1C2, LIPD2, TSH5 #### [facility] [address] [place] [address] #### VD25H #### [place] [address] [place] [address] #### HEPC #### [address] [address] Potassium [Moles/Vol] 4.1 mmol/L Normal 3.5-5.1 [facility] Comment on above: Performed By: #### C MP3, HEMOG, HA1C2, LIPD2, TSH5 #### [facility] [address] [place] [address] #### [id number] #### [facility] [address] [place] [address] #### HEPC #### [facility] [address] [place] [address] Sodium [Moles/Vol] 139 mmol/L Normal 135-145 [facility] Comment on above: Performed By: #### C MP3, HEMOG, HA1C2, LIPD2, TSH5 #### [facility] [address] [place] [address] #### VD25H #### [facility] [address] [place] [address] #### HEPC #### [address] [address] Albumin [Mass/Vol] 4.3 g/dL Normal 3.5-5.0 [facility] Comment on above: Performed By: #### C MP3, HEMOG, HA1C2, LIPD2, TSH5 #### [facility] [address] [place] [address] #### [id number] #### [facility] [address] [place] [address] #### HEPC #### [address] [address] Comprehensive Metabolic Pane lOrdered By: Carmen Aguilera on 04-09-2021 Albumin [Mass/Vol] 4.3 g/dL 3.5 - 5.0 g/dL [employer] Work Phone: ALP (Bld) [Catalytic activity/Vol] 55 U/L 38 - 126 U/L [employer] Work Phone: ALT [Catalytic activity/Vol] 22 U/L 0 - 34 U/L [employer] Work Phone: Comment on above: The ALT test is perf ormed by an updated assay method. Please note that the reference intervals have been changed and are now sex specific. Anion gap [Moles/Vol] 5 mmol/L 3 - 13 mmol/L [facility] Work Phone: AST [Catalytic activity/Vol] 26 U/L 15 - 46 U/L [facility] Work Phone: [phone] Bilirubin [Mass/Vol] 0.3 mg/dL 0.2 - 1 .3 mg/dL [facility] Work Phone: [phone] Calcium [Mass/Vol] 9.3 mg/dL 8.4 - 10. 4 mg/dL [facility] Work Phone: [phone] Chloride [Moles/Vol] 105 mmol/L 98 - 10 7 mmol/L [facility] Work Phone: [phone] CO2 [Moles/Vol] 29 mmol/L 22 - 30 mmol/L [facility] Work Phone: [phone] Creatinine [Mass/Vol] 0.64 mg/dL 0.52 - 1.25 mg/dL [facility] Work Phone: [phone] IF NonAfrican [place]er >90.0 >60 mL/min [facility] Work Phone: [phone] Comment on above: KDIGO guidelines pro vide the following GFR categories: Stage GFR(ml/min/1.73 m2) Terms G1 >=90 Normal or high G2 60-89 Mildly decreased* G3a 45-59 Mildly to moderately decreased G3b 30-44 Moderately to severely decreased G4 15-29 Severely decreased G5 <15 Kidney failure *Relative to young adult level. In the absence of evidence of kidney damage, neither GFR category G1 nor G2 fulfill the criteria for CKD. The CKD-EPI equation is validated in individuals 18 years of age and older. Currently the best equation for estimating glomerular filtration rate (GFR) from serum creatinine in children is the Bedside Daugherty equation. It is less accurate in patients with extremes of muscle mass, restriction of dietary protein, ingestion of creatine, extra-renal metabolism of creatinine, or treatment with medications that affect renal tubular creatinine secretion. Free PSA/Total PSA [Mass fraction] 7.1 g/dL 6.3 - 8.2 g/dL [facility] Work Phone: [phone] GFR/1.73 sq M.predicted among blacks MDRD (S/P/Bld) [Vol rate/Area] mL/min/{1.73_m2} >60 mL/min [facility] Work Phone: [phone] Glucose [Mass/Vol] 95 mg/dL 70 - 100 mg/dL [facility] Work Phone: Potassium [Moles/Vol] 4.1 mmol/L 3.5 - 5.1 mmol/L [facility] Work Phone: [phone] Sodium [Moles/Vol] 139 mmol/L 135 - 145 mmol/L [facility] Work Phone: [phone] Urea nitrogen (BldV) [Mass/Vol] 15 mg/dL 7 - 20 mg/dL [facility] Work Phone: Hemoglobin A1Con 04-09-2021 Glucose [Mass/Vol] 94 mg/dL Normal [facility] Comment on above: Performed By: #### C MP3, HEMOG, HA1C2, LIPD2, TSH5 #### [employer] [address] [address] #### VD25H #### [employer] [address] [place] [address] #### HEPC #### [employer] [address] [place] [phone] Hemoglobin M0EAucanls By: Beverly Aguilera on 04-09-2021 HbA1c (Bld) [Mass fraction] 4.9 % Normal [facility] Work Phone: Comment on above: Normal less than 5.7 % Prediabetes 5.7% to 6.4% Diabetes 6.5% or higher --HgbA1C levels may not be accurate in patients who have renal disease, received recent blood transfusions, are anemic, or who have dyshemoglobinemia. Result Comment: Norm al less than 5.7% Prediabetes 5.7% to 6.4% Diabetes 6.5% or higher --HgbA1C levels may not be accurate in patients who have renal disease, received recent blood transfusions, are anemic, or who have dyshemoglobinemia. Performed By: #### C MP3, HEMOG, HA1C2, LIPD2, TSH5 #### [employer] [address] [place] [address] #### VD25H #### [employer] [address] [place] [address] #### HEPC #### [address] [address] eAG 94 mg/dL [facility] Work Phone: Hemogramon 04-09-2021 Erythrocyte distribution width (RBC) [Ratio] 13.0 % Normal 11.5-14.5 [facility] Comment on above: Performed By: #### C MP3, HEMOG, HA1C2, LIPD2, TSH5 #### [address] [address] #### VD25H #### [address] [place] [address] #### HEPC #### [address] Hematocrit (Bld) [Volume fraction] 40.0 % Normal 35.0-47.0 [facility] Comment on above: Performed By: #### C MP3, HEMOG, HA1C2, LIPD2, TSH5 #### [facility] [address] [address] #### VD25H #### [address] [place] [address] #### HEPC #### [address] Hemoglobin (Bld) [Mass/Vol] 13.7 g/dL Normal 11.7-16.0 [facility] Comment on above: Performed By: #### C MP3, HEMOG, HA1C2, LIPD2, TSH5 #### [address] [address] #### VD25H #### [address] [place] [address] #### HEPC #### [address] MCH (RBC) [Entitic mass] 31.0 pg Normal 26.0-34.0 [facility] Comment on above: Performed By: #### C MP3, HEMOG, HA1C2, LIPD2, TSH5 #### [facility] [address] [place] [address] #### VD25H #### [facility] [address] [place] [address] #### HEPC #### [address] MCHC 34.3 % Normal 32.0-36.0 [facility] Comment on above: Performed By: #### C MP3, HEMOG, HA1C2, LIPD2, TSH5 #### [facility] [address] [place] [address] #### VD25H #### [facility] [address] [place] #### HEPC #### [address] MCV (RBC) [Entitic vol] 90.4 fL Normal 79.0-98.0 [facility] Comment on above: Performed By: #### C MP3, HEMOG, HA1C2, LIPD2, TSH5 #### [facility] [place] #### VD25H #### [place] [address] [place] [address] #### HEPC #### [address] Platelet mean volume (Bld) [Entitic vol] 6.1 fL Low 7.4-10.4 [facility] Comment on above: Performed By: #### C MP3, HEMOG, HA1C2, LIPD2, TSH5 #### [facility] [place] [address] #### VD25H #### [address] [place] [address] #### HEPC #### [address] Platelets (Bld) [#/Vol] 283 10*3/uL Normal 140-440 [facility] Comment on above: Performed By: #### C MP3, HEMOG, HA1C2, LIPD2, TSH5 #### [facility] [address] [place] [address] #### VD25H #### [facility] [address] [place] [address] #### HEPC #### [address] [address] RBC (Bld) [#/Vol] 4.42 10*6/uL Normal 3.80-5.20 [facility] Comment on above: Performed By: #### C MP3, HEMOG, HA1C2, LIPD2, TSH5 #### [facility] [address] [place] [address] #### VD25H #### [place] [address] [place] [address] #### HEPC #### [address] WBC (Bld) [#/Vol] 7.6 10*3/uL Normal 3.6-10.7 [facility] Comment on above: Performed By: #### C MP3, HEMOG, HA1C2, LIPD2, TSH5 #### [facility] [place] [address] #### VD25H #### [address] [place] [address] #### HEPC #### [address] Lipid Panelon 04-09-2021 Chol/HDL 3 Normal [facility] Comment on above: Result Comment: Ref Range: < 3 Low Risk for CHD 3-6 Mod Risk for CHD > 6 High Risk for CHD Performed By: #### C MP3, HEMOG, HA1C2, LIPD2, TSH5 #### [facility] [address] [place] [address] #### VD25H #### [facility] [address] [place] [address] #### HEPC #### [address] Cholesterol in HDL [Mass/Vol] 44 mg/dL Normal 40-60 [facility] Comment on above: Performed By: #### C MP3, HEMOG, HA1C2, LIPD2, TSH5 #### [facility] [address] [place] [address] #### VD25H #### [facility] [address] [place] [address] #### HEPC #### [address] [address] Low Density Lipoprotein 100 mg/dL Abnormal <100 [facility] Comment on above: Performed By: #### C MP3, HEMOG, HA1C2, LIPD2, TSH5 #### [facility] [address] [place] [address] #### VD25H #### [facility] [address] [place] [address] #### HEPC #### [address] Triglyceride [Mass/Vol] 35 mg/dL Normal <150 [facility] Comment on above: Performed By: #### C MP3, HEMOG, HA1C2, LIPD2, TSH5 #### [facility] [address] [place] [address] #### VD25H #### [facility] [address] [place] [address] #### HEPC #### [address] [address] Cholesterol [Mass/Vol] 151 mg/dL Normal < 200 [facility] Comment on above: Performed By: #### C MP3, HEMOG, HA1C2, LIPD2, TSH5 #### [facility] [address] [place] [address] #### VD25H #### [facility] [address] [place] [address] #### HEPC #### [address] [address] Lipid PanelOrdered By: Chelo Aguilera on 04-09-2021 Cholesterol [Mass/Vol] 151 mg/dL <200 [facility] Work Phone: [phone] Cholesterol in HDL [Mass/Vol] 44 mg/dL 40 - 60 mg/dL [employer] Work Phone: [phone] Cholesterol in LDL [Mass/Vol] 100 mg/dL Abnormal <100 [facility] Work Phone: [phone] Cholesterol.total/Cho lesterol in HDL [Mass ratio] 3 {ratio} [employer] Work Phone: [phone] Comment on above: Ref Range: < 3 Low Risk for CHD 3-6 Mod Risk for CHD > 6 High Risk for CHD Interpretation and review of laboratory results Abnormal [facility] Work Phone: [phone] Triglyceride [Mass/Vol] 35 mg/dL <150 [employer] Work Phone: [phone] Panel InformationOrdered By: Carmen Aguilera on 04-09-2021 Test Performed by [employer], [address] [place] [address] [employer] Work Phone: [phone] [facility] Work Phone: [phone] Test Performed by [employer], [facility] [address] [facility] Work Phone: [phone] [employer] Work Phone: [phone] TSH without ReflexOrdered By : Carmen Aguilera on 04-09-2021 TSH Qn 1.230 u[IU]/mL 0.465 - 4.680 u[IU]/mL [employer] Work Phone: Thyroid Stim. Hormoneon 06-0 Thyroid Stim. Hormone 1.230 u[IU]/mL Normal 0.46 5-4.68 0 [facility] Comment on above: Performed By: #### C MP3, HEMOG, HA1C2, LIPD2, TSH5 #### [employer] [address] [place] [address] #### VD25H #### [employer] [address] [place] [address] #### HEPC #### [employer] [address] [place] [address] Vit D 25-OH, Totalon 021 Vit D 25-OH, Total 95 ng/mL Normal 30-100 [facility] Comment on above: Result Comment: Ther apy is based on measurement of Total 25- OHD with the following classification levels: Less than 20 ng/mL: Indicative of Vit D deficiency 20-30 ng/mL: Suggests Vit D insufficiency Optimal: Greater than or equal to 30 ng/mL Test performed by [employer] Immuno[employer], measuring Total Vitamin D, not individual fractions. Performed By: #### C MP3, HEMOG, HA1C2, LIPD2, TSH5 #### [facility] [address] [place] [address] #### VD25H #### [facility] [address] [place] [address] #### HEPC #### [facility] [address] [place] [address] Vitamin D 25 HydroxyOrdered By: Carmen Aguilera on 04-09-2021 Vit D, 25-Hydroxy 95 ng/mL 30 - 100 ng/mL [facility] Work Phone: Comment on above: Therapy is based on measurement of Total 25-OHD with the following classification levels: Less than 20 ng/mL: Indicative of Vit D deficiency 20-30 ng/mL: Suggests Vit D insufficiency Optimal: Greater than or equal to 30 ng/mL Test performed by [employer], measuring Total Vitamin D, not individual fractions. Test Performed by [facility], [address], [place], [place] [address] [facility] Work Phone: [facility] Work Phone: CBC Auto Differentialon 09-0 Absolute Baso # 0.0 10*3/uL 0 - 0.2 10*3/uL [facility] [place], [place] Absolute Neut # 3.3 10*3/uL 1.8 - 7 10*3/uL [facility]- [place], [place] Basophils/100 WBC (Bld) 0.6 % 0 - 2 % [facility] [place], [place] Eosinophils (Bld) [#/Vol] 0.1 10*3/uL 0 - 0.5 10*3/uL [facility] [place], [place] Eosinophils/100 WBC (Bld) 2.0 % 1 - 6 % [facility] [place], [place] Erythrocyte distribution width (RBC) [Ratio] 13.4 % 11.5 - 14.5 % [place], [place] Granulocytes/100 WBC (Bld) 60.3 % 40 - 80 % [place] Hematocrit (Bld) [Volume fraction] 41.2 % 35 - 47 % [place] Hemoglobin (Bld) [Mass/Vol] 14.8 g/dL 11.7 - 16 g/dL [place] Interpretation and review of laboratory results Abnormal [place] Lymphocytes (Bld) [#/Vol] 1.7 10*3/uL 1 - 4.3 10*3/uL [place] Lymphocytes/100 WBC (Bld) 31.1 % 20 - 40 % [place] MCH (RBC) [Entitic mass] 32.5 pg 26 - 34 pg [place] MCHC (RBC) [Mass/Vol] 36.0 % 32 - 36 % [place], [place] MCV (RBC) [Entitic vol] 90.3 fL 79 - 98 fL [place] Monocytes (Bld) [#/Vol] 0.3 10*3/uL 0 - 0.8 10*3/uL [place] Monocytes/100 WBC (Bld) 6.0 % 2 - 10 % [place] Platelet mean volume (Bld) [Entitic vol] 7.2 fL Low 7.4 - 10.4 fL [place] Platelets (Bld) [#/Vol] 255 10*3/uL 140 - 440 10*3/uL [place] RBC (Bld) [#/Vol] 4.56 10*6/uL 3.8 - 5.2 10*6/uL [place] WBC (Bld) [#/Vol] 5.4 10*3/uL 3.6 - 10.7 10*3/uL [place] Test Performed by [facility], [address] , [address] Comprehensive Metabolic Pane ana 07-09-2020 Albumin [Mass/Vol] 4.3 g/dL 3.5 - 5 g/dL [place] ALP [Catalytic activity/Vol] 48 U/L 38 - 126 U/L [place] ALT [Catalytic activity/Vol] 11 U/L 0 - 34 U/L [place] Comment on above: The ALT test is perf ormed by an updated assay method. Please note that the reference intervals have been changed and are now sex specific. Anion gap [Moles/Vol] 8 mmol/L [place], [place] AST [Catalytic activity/Vol] 19 U/L 15 - 46 U/L [place] Bilirubin Ql (U) 0.4 mg/dL 0.2 - 1.3 mg/dL [place] Calcium [Mass/Vol] 9.3 mg/dL 8.4 - 10. 4 mg/dL [place] Chloride [Moles/Vol] 103 mmol/L 98 - 10 7 mmol/L [place] CO2 [Moles/Vol] 27 mmol/L 22 - 30 mmol/L [place] Creatinine [Mass/Vol] 0.56 mg/dL 0.52 - 1.25 mg/dL [place] EGFR IF NonAfrican [place]er >90.0 >60 mL/min [place] Comment on above: KDIGO guidelines pro vide the following GFR categories: Stage GFR(ml/min/1.73 m2) Terms G1 >=90 Normal or high G2 60-89 Mildly decreased* G3a 45-59 Mildly to moderately decreased G3b 30-44 Moderately to severely decreased G4 15-29 Severely decreased G5 <15 Kidney failure *Relative to young adult level. In the absence of evidence of kidney damage, neither GFR category G1 nor G2 fulfill the criteria for CKD. The CKD-EPI equation is validated in individuals 18 years of age and older. Currently the best equation for estimating glomerular filtration rate (GFR) from serum creatinine in children is the Bedside Daugherty equation. It is less accurate in patients with extremes of muscle mass, restriction of dietary protein, ingestion of creatine, extra-renal metabolism of creatinine, or treatment with medications that affect renal tubular creatinine secretion. GFR/1.73 sq M predicted among blacks MDRD (S/P/Bld) [Vol rate/Area] mL/min/{1.73_m2} >60 mL/min [place] Glucose [Mass/Vol] 86 mg/dL 70 - 100 mg/dL [place] Potassium [Moles/Vol] 4.3 mmol/L 3.5 - 5.1 mmol/L [place] Protein [Mass/Vol] 7.1 g/dL 6.3 - 8.2 g/dL [place] Sodium [Moles/Vol] 138 mmol/L 135 - 145 mmol/L [place] Urea nitrogen [Mass/Vol] 12 mg/dL 7 - 20 mg/dL [place] Test Performed by [facility], [address] , [address] HCG Qualitative, Serumon hCG Qual Negative m[IU]/mL [place] Comment on above: Reference Range: NEG ATIVE Effective 02/11/2020, the reference interval for the qualitative test has been updated. This test detects hCG at concentrations of 10 mIU/mL or greater in serum. Test Performed by [facility], [address] , [address] TSH without Reflexon 020 TSH Qn 1.241 u[IU]/mL 0.465 - 4.68 u[IU]/mL [place] Test Performed by [facility], [address] , [address] Vitamin D 25 Hydroxyon 07-09 Vit D, 25-Hydroxy 43 ng/mL 30 - 100 ng/mL [place] Comment on above: Therapy is based on measurement of Total 25-OHD with the following classification levels: Less than 20 ng/mL: Indicative of Vit D deficiency 20-30 ng/mL: Suggests Vit D insufficiency Optimal: Greater than or equal to 30 ng/mL Test performed by [employer], measuring Total Vitamin D, not individual fractions. Test Performed by [facility], [address], [place], [place] [address] [place], [place] MG Breast Tomosynthesis Diag nostic BIon 06-17-2020 MG Breast Tomosynthesis Diagnostic BI Patient Name: NAILA WARREN Mammography Exam Date/Time 06/17/2020 14:15:00 EDT Exam MG Breast Tomosynthesis BI Ordering Physician MD HASSAN DIANA Accession Number [id number] CPT4 Codes 74087 (MG Breast Tomosynthesis BI), 40057 (MG MAMMO 2D DIAG BILAT) Reason For Exam Mass of right breast Report TIME SINCE LAST MAMMOGRAM: Baseline mammogram. REASON FOR EXAM: clinical finding. PROCEDURE: MG BREAST TOMOSYNTHESIS BL: JUNE 17, 2020 - 2D/3D Procedure 3D Bilateral CC and MLO view(s) were taken. 2D Bilateral CC and MLO view(s) were taken. TISSUE DENSITY: BIRADS C - The breast tissue is heterogeneously dense, which could obscure underlying abnormalities. . FINDINGS: Patient present with a palpable abnormality in the upper outer quadrant of the right breast. Mammographically, there are no suspicious masses, calcifications, or areas of distortion noted. The patient went on for ultrasound evaluation as well. Sonographic images were obtained of the right breast at the 10:30 position 3 cm from the nipple in the area of concern. Dense fibroglandular tissue is seen. No sonographic abnormality is identified. IMPRESSION: No abnormalities identified in the area of concern. Clinical follow-up is recommended. Otherwise routine screening is recommended at age 40 unless clinically indicated earlier. Markings on images: BB's = Nipples; skin lesions Open [place] = Palpable Line = Scar US BREAST LIMITED RIGHT: JUNE 17, 2020 - 2D digital mammography and tomosynthesis imaging were performed and reviewed with CAD. ASSESSMENT: Category 1 Negative (Overall) RECOMMENDATION: Routine screening mammogram of both breasts at age 40. . Report Dictated on Final Signed Date and Time: 06/17/2020 3:08 pm Signed by: MD ANN, ZOILA Alvarado [facility] US Breast Limited Righton US Breast Limited Right Patient Name: NAILA WARREN Ultrasound Exam Date/Time 06/17/2020 14:42:46 EDT Exam US Breast Limited Right Ordering Physician MD HASSAN DIANA Accession Number [id number] CPT4 Codes 23591 () Reason For Exam Unspecified lump in the right breast, overlapping quadrants Report TIME SINCE LAST MAMMOGRAM: Baseline mammogram. REASON FOR EXAM: clinical finding. PROCEDURE: MG BREAST TOMOSYNTHESIS BL: JUNE 17, 2020 - 2D/3D Procedure 3D Bilateral CC and MLO view(s) were taken. 2D Bilateral CC and MLO view(s) were taken. TISSUE DENSITY: BIRADS C - The breast tissue is heterogeneously dense, which could obscure underlying abnormalities. . FINDINGS: Patient present with a palpable abnormality in the upper outer quadrant of the right breast. Mammographically, there are no suspicious masses, calcifications, or areas of distortion noted. The patient went on for ultrasound evaluation as well. Sonographic images were obtained of the right breast at the 10:30 position 3 cm from the nipple in the area of concern. Dense fibroglandular tissue is seen. No sonographic abnormality is identified. IMPRESSION: No abnormalities identified in the area of concern. Clinical follow-up is recommended. Otherwise routine screening is recommended at age 40 unless clinically indicated earlier. Markings on images: BB's = Nipples; skin lesions [place] = Palpable Line = Scar US BREAST LIMITED RIGHT: JUNE 17, 2020 - 2D digital mammography and tomosynthesis imaging were performed and reviewed with CAD. ASSESSMENT: Category 1 Negative (Overall) RECOMMENDATION: Routine screening mammogram of both breasts at age 38. . Report Dictated on Final Signed Date and Time: 06/17/2020 3:08 pm Signed by: MD ANN, ZOILA A Normal [facility] C-Reactive Proteinon 020 CRP [Mass/Vol] mg/L 0 - 6 mg/L [place] Comment on above: . Test Performed by [facility], [address] [place] [address] , [address] Rheumatoid Factoron 03-03-20 20 Rheumatoid Factor <9 0 - 12 [IU]/mL [facility], [place] Test Performed by [facility], [address], [place], [place] [address] [facility], [place] Sedimentation Rateon 2 020 Sed Rate 17 mm/h 0 - 20 mm/h [facility], [place] Test Performed by [facility], [address] , [place], [place] [address] [facility], [place] XR KNEE RIGHT (3 VIEWS)Order ed By: Alistair Vaughn on 10-25-2019 Patient Name: NAILA HENNING ---Diagnostic Radiology--- Exam Date/Time 10/25/2019 12:47:27 EST Exam CR Knee 3 Views Right Ordering Physician ALISTAIR VAUGHN Accession Number [id number] CPT4 Codes 56726 () Reason For Exam rignt knee injury Report RIGHT KNEE 3 VIEWS CLINICAL INDICATION: rignt knee injury TECHNIQUE: 3 views of the right knee. COMPARISON: None. FINDINGS: No acute fracture or dislocation. Joint spaces maintained. Soft tissues grossly unremarkable. IMPRESSION: 1. No acute osseous abnormality. Report Dictated on --- Final --- Dictating Physician: MD ABRAHAM WENDELL Signed Date and Time: 10/25/2019 1:06 pm Signed by: MD ABRAHAM WENDELL Transcribed Date and Time: 10/25/2019 1:07 [facility] Work Phone: Anjel, [facility] Incoming Radiology Results From [facility] - 10/25/2019 1:08 PM EST Patient Name: NAILA LEUNG ---Diagnostic Radiology--- Exam Date/Time 10/25/2019 12:47:27 EST Exam CR Knee 3 Views Right Ordering Physician ALISTAIR VAUGHN Accession Number [id number] CPT4 Codes 68978 () Reason For Exam rignt knee injury Report RIGHT KNEE 3 VIEWS CLINICAL INDICATION: rignt knee injury TECHNIQUE: 3 views of the right knee. COMPARISON: None. FINDINGS: No acute fracture or dislocation. Joint spaces maintained. Soft tissues grossly unremarkable. IMPRESSION: 1. No acute osseous abnormality. Report Dictated on --- Final --- Dictating Physician: MD ABRAHAM WENDELL Signed Date and Time: 10/25/2019 1:06 pm Signed by: MD ABRAHAM WENDELL Transcribed Date and Time: 10/25/2019 1:07 [facility] Work Phone: AIMEOVon 05-01-2018 CNOV Office Visit ([place]) ----RINANAILA ALVAREZ ([id number]) 1985 F CHTDate Time Provider Department05/01/18 11:15 AM VELVET ELIZALDE ([facility]) [place] During your visit today, we recorded the following information about you: Temperature Pulse Blood pressure Weight 98.4 degrees 72/minute 119/69 67.1 kgVelvet Elizalde APRN.CNP 05/01/2018 11:56 AM SignedSubjectiveHPIHPI Naila Leung is a 33 year old female who presents today for CC ofsinus drainage, congestion ,ear pain, sore throat, headache, cough Thisstarted 4 days ago she has tried sudafed, nyquil, tylenol, cough drops and shehas been compliant with her asthma medicationACTIVE PROBLEM LISTGerd (Gastroesophageal Reflux Disease)Tobacco AbuseTMJ (Dislocation of Temporomandibular Joint)Asthma With Copd With Exacerbation (Hcc)Seizure (Hcc)Abdominal Pain Affecting , AntepartumBP 119/69 Pulse 72 Temp 36.9 ?C (98.4 ?F) (Tympanic) Wt 67.1 kg (148lb) SpO2 100% BMI 24.63 kg/m?ALLERGIESAllergen Reactions- Codeine Rash vomiting- Penicillins Other: See Comments Seizures- Seasonal Allergies Other: See Comments Dust mites, molds, trees, grasses, weedsCurrent Outpatient Prescriptions:LEVONORGESTREL (MIRENA INTRAUTERINE) by INTRAUTERINE route. Disp: Rfl:famotidine (PEPCID) 20 mg tablet Take 1 tablet by mouth twice daily. Disp: 60tablet Rfl: 1prenatal vit no.15-ccke-KW-dha (PRENATE MINI, FERR ASP GLYCIN,) 18-1-350 mg capTake 1 tablet by mouth once daily. Disp: 30 tablet Rfl: 12mometasone (ASMANEX HFA) 200 mcg/actuation HFAA Inhale 2 Puffs as instructedtwice daily. Disp: 1 Inhaler Rfl: 3albuterol HFA (PROVENTIL HFA, VENTOLIN HFA) 90 mcg/actuation inhaler Inhale 2Puffs as instructed every 6 hours. Disp: 1 Inhaler Rfl: 1beclomethasone (QVAR) 80 mcg/actuation inhaler Inhale 2 Puffs as instructedtwice daily. Disp: 2 Inhaler Rfl: 2No current facility-administered medications for this visit.Review of SystemsConstitutional: Negative for chills, diaphoresis, fever and malaise/fatigue.HENT: Positive for congestion, ear pain and sore throat.Respiratory: Positive for cough, shortness of breath (mild) and wheezing(occasional).Gastroi ntestinal: Negative for abdominal pain, diarrhea, nausea and vomiting.Musculoskeletal: Negative for joint pain and myalgias.Skin: Negative for rash.Neurological: Positive for headaches. Negative for weakness.ObjectivePhysical ExamConstitutional: She is oriented to person, place, and time and well-developed,well-nourishe d, and in no distress. No distress.HENT:Head: Normocephalic and atraumatic.Right Ear: Tympanic membrane and ear canal normal.Left Ear: Tympanic membrane and ear canal normal.Nose: Nose normal. No mucosal edema or rhinorrhea. Right sinus exhibits nomaxillary sinus tenderness and no frontal sinus tenderness. Left sinus exhibitsno maxillary sinus tenderness and no frontal sinus tenderness.Mouth/Throat: Uvula is midline, oropharynx is clear and moist and mucousmembranes are normal. No oropharyngeal exudate.Eyes: Conjunctivae and EOM are normal. Pupils are equal, round, and reactive tolight. Right eye exhibits no discharge. Left eye exhibits no discharge.Neck: Normal range of motion. Neck supple. No thyromegaly present.Cardiovascular: Normal rate, regular rhythm and normal heart sounds.Pulmonary/Chest: Effort normal. No respiratory distress. She has decreasedbreath sounds (mild in the upper lobes). She has no wheezes. She has no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 exchangethroughout. No wheezing, rhonchi, or crackles; no retractions, tripoding,or nasal flaring noted.Heart: RRR, no murmur, rub, or gallop.. .Skin: no rash noted, cap refill <3sec, normal skin turgor noted.ASSESSMENT/PLAN:1. Foot pain, left - ICD9: 729.5, ICD10: M79.672 (primary diagnosis)2. Edema of left foot - ICD9: 782.3, ICD10: R60. Consider arthritic or gout??- XR FOOT GENERAL 3V AP/LAT/OBL LT- get as outpatient at [facility] Will get x-ray to look for stress Fx, spurs, or arthritic bone changes- PREDNISONE 10 MG TABLET- follow the weanPossibly soft tissue related- tendinopathy or over useTylenol for pain.- while on the steroidRestIceWalking boot provided- she reports that it does help and is less painfulto walk/bear weight (she has 2 small children at home she carries. So,cannot use crutches).If persists follow up with your PCP - consider arthritic cause/gout?Call PCP if sx worsen or no better.If symptoms worsen, or new symptoms develop go to ER.If you have worsening of breathing or breathing changes- go to ER.If you have persistent fever unrelieved by Tylenol/Motrin- go to the ER.Discussed all red flag symptoms and reasons to go to ERNo further questions.Follow up as needed.Barriers to learning: none.The patient verbalizes understanding and is in agreement with plan ofcare.Cris Quintero PA-C Normal [facility] Vital Signs Date Time Vital Sign Value Performing Clinician Facility 06-30-2025 10:47-0400 Body height 160.02 cm Evelia Cadet PUBLIC HEALTH PROGRAM MANAGER-C Work Phone: [facility] 06-30-2025 10:47-0400 Body mass index (BMI) [Ratio] 38.6 kg/m2 Evelia Cadet PUBLIC HEALTH PROGRAM MANAGER-C Work Phone: [facility] 06-30-2025 10:47-0400 Body temperature 97 [degF] Evelia Cadet PUBLIC HEALTH PROGRAM MANAGER-C Work Phone: [facility] 06-30-2025 10:47-0400 Body weight 98.88 kg Evelia Cadet PUBLIC HEALTH PROGRAM MANAGER-C Work Phone: [phone] [place] [address] 06-30-2025 10:47-0400 Diastolic blood pressure 64 mm[Hg] Evelia Cadet PUBLIC HEALTH PROGRAM MANAGER-C Work Phone: [facility] 06-30-2025 10:47-0400 Heart rate 75 /min Evelia Cadet PUBLIC HEALTH PROGRAM MANAGER-C Work Phone: [facility] 06-30-2025 10:47-0400 Respiratory rate 18 /min Evelia Cadet PUBLIC HEALTH PROGRAM MANAGER-C Work Phone: [facility] 06-30-2025 10:47-0400 SaO2% (BldA) [Mass fraction] 96 % Evelia Cadet PUBLIC HEALTH PROGRAM MANAGER-C Work Phone: [facility] 06-30-2025 10:47-0400 Systolic blood pressure 122 mm[Hg] Evelia Cadet PUBLIC HEALTH PROGRAM MANAGER-C Work Phone: [facility] 04-28-2025 11:18-0400 Body height 160.02 cm Evelia Cadet PUBLIC HEALTH PROGRAM MANAGER-C Work Phone: [facility] 04-28-2025 11:18-0400 Body mass index (BMI) [Ratio] 38 kg/m2 Evelia Cadet PUBLIC HEALTH PROGRAM MANAGER-C Work Phone: [facility] 04-28-2025 11:18-0400 Body temperature 97 [degF] Evelia Cadet PUBLIC HEALTH PROGRAM MANAGER-C Work Phone: [facility] 04-28-2025 11:18-0400 Body weight 97.52 kg Evelia Cadet PUBLIC HEALTH PROGRAM MANAGER-C Work Phone: [facility] 04-28-2025 11:18-0400 Diastolic blood pressure 80 mm[Hg] Evelia Cadet PUBLIC HEALTH PROGRAM MANAGER-C Work Phone: [facility] 04-28-2025 11:18-0400 Heart rate 73 /min Evelia Cadet PUBLIC HEALTH PROGRAM MANAGER-C Work Phone: [facility] 04-28-2025 11:18-0400 Respiratory rate 16 /min Evelia Cadet PUBLIC HEALTH PROGRAM MANAGER-C Work Phone: [facility] 04-28-2025 11:18-0400 SaO2% (BldA) [Mass fraction] 97 % Evelia Cadet PUBLIC HEALTH PROGRAM MANAGER-C Work Phone: [facility] 04-28-2025 11:18-0400 Systolic blood pressure 118 mm[Hg] Evelia Cadet PUBLIC HEALTH PROGRAM MANAGER-C Work Phone: [facility] 01-11-2024 15:50-0500 Body temperature 98.5 [degF] PUBLIC HEALTH PROGRAM MANAGER-C Evelia Cadet PUBLIC HEALTH PROGRAM MANAGER Work Phone: [facility] 01-11-2024 15:50-0500 Diastolic blood pressure 62 mm[Hg] PUBLIC HEALTH PROGRAM MANAGER-C Evelia Cadet PUBLIC HEALTH PROGRAM MANAGER Work Phone: [facility] 01-11-2024 15:50-0500 Heart rate 74 /min PUBLIC HEALTH PROGRAM MANAGER-C Evelia Cadet PUBLIC HEALTH PROGRAM MANAGER Work Phone: [facility] 01-11-2024 15:50-0500 Respiratory rate 16 /min PUBLIC HEALTH PROGRAM MANAGER-C Evelia Cadet PUBLIC HEALTH PROGRAM MANAGER Work Phone: [facility] 01-11-2024 15:50-0500 SaO2% (BldA) [Mass fraction] 98 % PUBLIC HEALTH PROGRAM MANAGER-C Evelia Cadet PUBLIC HEALTH PROGRAM MANAGER Work Phone: [facility] 01-11-2024 15:50-0500 Systolic blood pressure 100 mm[Hg] PUBLIC HEALTH PROGRAM MANAGER-C Evelia Cadet PUBLIC HEALTH PROGRAM MANAGER Work Phone: [facility] 12-04-2023 17:56-0500 Body height 166.37 cm PUBLIC HEALTH PROGRAM MANAGER-Elodia Cadet PUBLIC HEALTH PROGRAM MANAGER Work Phone: [facility] 12-04-2023 17:56-0500 Body mass index (BMI) [Ratio] 31.8 kg/m2 PUBLIC HEALTH PROGRAM MANAGER-Elodia Cadet PUBLIC HEALTH PROGRAM MANAGER Work Phone: [facility] 12-04-2023 17:56-0500 Body temperature 98.1 [degF] PUBLIC HEALTH PROGRAM MANAGER-C Evelia Cadet PUBLIC HEALTH PROGRAM MANAGER Work Phone: [facility] 12-04-2023 17:56-0500 Body weight 87.99 kg PUBLIC HEALTH PROGRAM MANAGER-Elodia Cadet PUBLIC HEALTH PROGRAM MANAGER Work Phone: [facility] 12-04-2023 17:56-0500 Diastolic blood pressure 72 mm[Hg] PUBLIC HEALTH PROGRAM MANAGER-Elodia Cadet PUBLIC HEALTH PROGRAM MANAGER Work Phone: [facility] 12-04-2023 17:56-0500 Heart rate 68 /min PUBLIC HEALTH PROGRAM MANAGER-C Evelia Cadet PUBLIC HEALTH PROGRAM MANAGER Work Phone: [facility] 12-04-2023 17:56-0500 Respiratory rate 14 /min PUBLIC HEALTH PROGRAM MANAGER-Elodia Cadet PUBLIC HEALTH PROGRAM MANAGER Work Phone: [facility] 12-04-2023 17:56-0500 Systolic blood pressure 116 mm[Hg] PUBLIC HEALTH PROGRAM MANAGER-Elodia Cadet PUBLIC HEALTH PROGRAM MANAGER Work Phone: [facility] 11-26-2023 19:04-0500 Diastolic blood pressure 73 mm[Hg] [facility] 11-26-2023 19:04-0500 Heart rate 64 /min [facility] 11-26-2023 19:04-0500 Respiratory rate 16 /min [facility] 11-26-2023 19:04-0500 SaO2% (BldA) [Mass fraction] 99 % [facility] 11-26-2023 19:04-0500 Systolic blood pressure 118 mm[Hg] [facility] 11-26-2023 17:05-0500 Body height 165.1 cm [facility] 11-26-2023 17:05-0500 Body mass index (BMI) [Ratio] 31.7 kg/m2 [facility] 11-26-2023 17:05-0500 Body temperature 95.8 [degF] [facility] 11-26-2023 17:05-0500 Body weight 86.5 kg [facility] 05-05-2023 09:24-0400 Body mass index (BMI) [Ratio] 29.75 kg/m2 Adela Velez MD Work Phone: [facility] 05-05-2023 09:24-0400 Body temperature 97.11 [degF] Adela Velez MD Work Phone: [facility] 05-05-2023 09:24-0400 Body weight 81.1 kg Adela Velez MD Work Phone: [facility] 05-05-2023 09:24-0400 Diastolic blood pressure 79 mm[Hg] Adela Velez MD Work Phone: [facility] 05-05-2023 09:24-0400 Heart rate 64 /min Adela Velez MD Work Phone: [facility] 05-05-2023 09:24-0400 Systolic blood pressure 116 mm[Hg] Adela Velez MD Work Phone: [facility] 04-11-2023 09:31-0400 Body height 165.1 cm Adela Veelz MD Work Phone: [facility] 04-11-2023 09:31-0400 Body mass index (BMI) [Ratio] 26.96 kg/m2 Adela Velez MD Work Phone: [facility] 04-11-2023 09:31-0400 Body temperature 97.81 [degF] Adela Velez MD Work Phone: [facility] 04-11-2023 09:31-0400 Body weight 73.48 kg Adela Velez MD Work Phone: [facility] 04-11-2023 09:31-0400 Diastolic blood pressure 76 mm[Hg] Adela Velez MD Work Phone: [facility] 04-11-2023 09:31-0400 Heart rate 59 /min Adela Velez MD Work Phone: [facility] 04-11-2023 09:31-0400 SaO2% (BldA) [Mass fraction] 97 % Adela Velez MD Work Phone: [facility] 04-11-2023 09:31-0400 Systolic blood pressure 110 mm[Hg] Adela Velez MD Work Phone: [facility] 01-23-2023 12:50-0400 Body mass index (BMI) [Ratio] 26.33 kg/m2 Polo Coelho MD Work Phone: [facility] 01-23-2023 12:50-0400 Body temperature 97.3 [degF] Polo Coelho MD Work Phone: [facility] 01-23-2023 12:50-0400 Body weight 71.76 kg Polo Coelho MD Work Phone: [facility] 01-23-2023 12:50-0400 Diastolic blood pressure 64 mm[Hg] Polo Coelho MD Work Phone: [facility] 01-23-2023 12:50-0400 Heart rate 66 /min Polo Coelho MD Work Phone: [facility] 01-23-2023 12:50-0400 SaO2% (BldA) [Mass fraction] 100 % Polo Coelho MD Work Phone: [facility] 01-23-2023 12:50-0400 Systolic blood pressure 105 mm[Hg] Polo Coelho MD Work Phone: [facility] 11-28-2022 09:41-0500 Body mass index (BMI) [Ratio] 24.81 kg/m2 Polo Coelho MD Work Phone: [facility] 11-28-2022 09:41-0500 Body temperature 97 [degF] Polo Coelho MD Work Phone: [facility] 11-28-2022 09:41-0500 Body weight 67.63 kg Polo Coelho MD Work Phone: [facility] 11-28-2022 09:41-0500 Diastolic blood pressure 79 mm[Hg] Polo Coelho MD Work Phone: [facility] 11-28-2022 09:41-0500 Heart rate 67 /min Polo Coelho MD Work Phone: [facility] 11-28-2022 09:41-0500 SaO2% (BldA) [Mass fraction] 98 % Polo Coelho MD Work Phone: [facility] 11-28-2022 09:41-0500 Systolic blood pressure 116 mm[Hg] Polo Coelho MD Work Phone: [facility] 10-10-2022 08:24-0500 Body mass index (BMI) [Ratio] 25.24 kg/m2 Polo Coelho MD Work Phone: [facility] 10-10-2022 08:24-0500 Body temperature 97.2 [degF] Polo Coelho MD Work Phone: [facility] 10-10-2022 08:24-0500 Body weight 68.81 kg Polo Coelho MD Work Phone: [facility] 10-10-2022 08:24-0500 Diastolic blood pressure 83 mm[Hg] Polo Coelho MD Work Phone: [facility] 10-10-2022 08:24-0500 Heart rate 70 /min Polo Coelho MD Work Phone: [facility] 10-10-2022 08:24-0500 SaO2% (BldA) [Mass fraction] 99 % Polo Coelho MD Work Phone: [facility] 10-10-2022 08:24-0500 Systolic blood pressure 121 mm[Hg] Polo Coelho MD Work Phone: [facility] 09-10-2022 12:00-0400 Diastolic blood pressure 67 mm[Hg] Text Entry Free [facility] 09-10-2022 12:00-0400 Heart rate 67 /min Text Entry Free [facility] 09-10-2022 12:00-0400 Respiratory rate 16 /min Text Entry Free [facility] 09-10-2022 12:00-0400 SaO2% (BldA) [Mass fraction] 97 % Text Entry Free [facility] 09-10-2022 12:00-0400 Systolic blood pressure 120 mm[Hg] Text Entry Free [facility] 09-10-2022 08:28-0400 Body height 165.1 cm [facility]-10-2022 08:28-0400 Body temperature 97.16 [degF] Text Entry Free [facility] 09-10-2022 08:28-0400 Body weight 72 kg [facility] 07-26-2022 14:23-0400 Body height 165.1 cm Adela Velez MD Work Phone: [facility] 07-26-2022 14:23-0400 Body mass index (BMI) [Ratio] 25.29 kg/m2 Adela Velez MD Work Phone: [facility] 07-26-2022 14:23-0400 Body weight 68.95 kg Adela Velez MD Work Phone: [facility] 07-26-2022 14:23-0400 Diastolic blood pressure 67 mm[Hg] Adela Velez MD Work Phone: [facility] 07-26-2022 14:23-0400 Heart rate 85 /min Adela Velez MD Work Phone: [facility] 07-26-2022 14:23-0400 Systolic blood pressure 102 mm[Hg] Adela Velez MD Work Phone: [facility] 07-04-2022 13:59-0400 Body mass index (BMI) [Ratio] 26.43 kg/m2 Polo Coelho MD Work Phone: [facility] 07-04-2022 13:59-0400 Body temperature 98.2 [degF] Polo Coelho MD Work Phone: [facility] 07-04-2022 13:59-0400 Body weight 72.03 kg Polo Coelho MD Work Phone: [facility] 07-04-2022 13:59-0400 Diastolic blood pressure 83 mm[Hg] Polo Coelho MD Work Phone: [facility] 07-04-2022 13:59-0400 Heart rate 86 /min Polo Coelho MD Work Phone: [facility] 07-04-2022 13:59-0400 Respiratory rate 17 /min Polo Coelho MD Work Phone: [facility] 07-04-2022 13:59-0400 Systolic blood pressure 128 mm[Hg] Polo Coelho MD Work Phone: [facility] 06-06-2022 14:22-0400 Body mass index (BMI) [Ratio] 27.41 kg/m2 Polo Coelho MD Work Phone: [facility] 06-06-2022 14:22-0400 Body temperature 97.9 [degF] Polo Coelho MD Work Phone: [facility] 06-06-2022 14:22-0400 Body weight 74.71 kg Polo Coelho MD Work Phone: [facility] 05-23-2022 13:52-0400 Body mass index (BMI) [Ratio] 28.54 kg/m2 Polo Coelho MD Work Phone: [facility] 05-23-2022 13:52-0400 Body temperature 97.9 [degF] Polo Coelho MD Work Phone: [facility] 05-23-2022 13:52-0400 Body weight 77.79 kg Polo Coelho MD Work Phone: [facility] 05-23-2022 13:52-0400 Diastolic blood pressure 79 mm[Hg] Polo Coelho MD Work Phone: [facility] 05-23-2022 13:52-0400 Heart rate 81 /min Polo Coelho MD Work Phone: [facility] 05-23-2022 13:52-0400 SaO2% (BldA) [Mass fraction] 100 % Polo Coelho MD Work Phone: [facility] 05-23-2022 13:52-0400 Systolic blood pressure 116 mm[Hg] Polo Coelho MD Work Phone: [facility] 05-02-2022 13:31-0400 Body height 165.1 cm Polo Coelho MD Work Phone: [facility] 05-02-2022 13:31-0400 Body mass index (BMI) [Ratio] 28.12 kg/m2 Polo Coelho MD Work Phone: [facility] 05-02-2022 13:31-0400 Body temperature 98.2 [degF] Polo Coelho MD Work Phone: [facility] 05-02-2022 13:31-0400 Body weight 76.66 kg Polo Coelho MD Work Phone: [facility] 05-02-2022 13:31-0400 Diastolic blood pressure 73 mm[Hg] Polo Coelho MD Work Phone: [facility] 05-02-2022 13:31-0400 Heart rate 60 /min Polo Coelho MD Work Phone: [facility] 05-02-2022 13:31-0400 SaO2% (BldA) [Mass fraction] 98 % Polo Coelho MD Work Phone: [facility] 05-02-2022 13:31-0400 Systolic blood pressure 108 mm[Hg] Polo Coelho MD Work Phone: [facility] 04-26-2022 13:19-0400 Body height 166.37 cm Sobeida Beauchamp MD [facility] Work Phone: 04-26-2022 13:19-0400 Body mass index (BMI) [Ratio] 23.76 kg/m2 Sobeida Beauchamp MD [facility] Phone[facility] [address] Work Phone: 04-26-2022 13:19-0400 Body surface area Derived from formula 1.74 m2 Sobeida Beauchamp MD Work Phone: [facility] [address] Work Phone: 04-26-2022 13:19-0400 Body temperature 98 [degF] Sobeida Beauchamp MD Work Phone: [facility] Work Phone: 04-26-2022 13:19-0400 Body weight 65.77 kg Sobeida Beauchamp MD Work Phone: [facility] Work Phone: 04-26-2022 13:19-0400 Diastolic blood pressure 78 mm[Hg] Sobeida Beauchamp MD Work Phone: [facility] Work Phone: 04-26-2022 13:19-0400 Systolic blood pressure 113 mm[Hg] Sobeida Beauchamp MD Work Phone: [facility] Work Phone: 03-27-2022 04:28-0400 Body temperature 97.52 [degF] Text Entry Free [facility] 03-27-2022 04:28-0400 Diastolic blood pressure 68 mm[Hg] Text Entry Free [facility] 03-27-2022 04:28-0400 Heart rate 73 /min Text Entry Free [facility] 03-27-2022 04:28-0400 Respiratory rate 18 /min Text Entry Free [facility] 03-27-2022 04:28-0400 SaO2% (BldA) [Mass fraction] 98 % Text Entry Free [facility] 03-27-2022 04:28-0400 Systolic blood pressure 104 mm[Hg] Text Entry Free [facility] 02-12-2022 05:40-0400 Body mass index (BMI) [Ratio] 26.63 kg/m2 Stan Bridges MD Work Phone: [facility] 02-12-2022 05:40-0400 Body temperature 97.39 [degF] Stan Bridges MD Work Phone: [facility] 02-12-2022 05:40-0400 Body weight 72.58 kg Stan Bridges MD Work Phone: [facility] 02-12-2022 05:40-0400 Diastolic blood pressure 77 mm[Hg] Stan Bridges MD Work Phone: [facility] 02-12-2022 05:40-0400 Heart rate 73 /min Stan Bridges MD Work Phone: [facility] 02-12-2022 05:40-0400 Respiratory rate 18 /min Stan Bridges MD Work Phone: [facility] 02-12-2022 05:40-0400 SaO2% (BldA) [Mass fraction] 99 % Stan Bridges MD Work Phone: [facility] 02-12-2022 05:40-0400 Systolic blood pressure 108 mm[Hg] Stan Bridges MD Work Phone: [facility] 01-15-2022 15:35-0500 Body temperature 98.06 [degF] [facility] 01-15-2022 15:35-0500 Body weight 76 kg Text Entry Free [place] [facility] 01-15-2022 15:35-0500 Diastolic blood pressure 70 mm[Hg] Text Entry Free [facility] 01-15-2022 15:35-0500 Heart rate 82 /min Text Entry Free [place] [facility] 01-15-2022 15:35-0500 Respiratory rate 16 /min Text Entry Free [facility] 01-15-2022 15:35-0500 SaO2% (BldA) [Mass fraction] 100 % Text Entry Free [facility] 01-15-2022 15:35-0500 Systolic blood pressure 129 mm[Hg] Text Entry Free [facility] 11-26-2021 11:10-0500 Body height 165.1 cm Text Entry Free [place] [facility] 11-26-2021 11:10-0500 Body temperature 97.34 [degF] Text Entry Free [facility] 01-21-2022 11:10-0500 Body weight 72.7 kg Text Entry Free [place] [facility] 11-26-2021 11:10-0500 Diastolic blood pressure 75 mm[Hg] Text [facility] 11-26-2021 11:10-0500 Heart rate 63 /min Text Entry Free [place] [facility] 11-26-2021 11:10-0500 Respiratory rate 14 /min [facility] 11-26-2021 11:10-0500 SaO2% (BldA) [Mass fraction] 100 % Text Entry [facility] 11-26-2021 11:10-0500 Systolic blood pressure 123 mm[Hg] Text Entry [facility] 11-25-2021 21:44-0500 Body height 153.6 cm [facility] 11-25-2021 21:44-0500 Body temperature 97.16 [degF] Text Entry Free [facility] 11-25-2021 21:44-0500 Diastolic blood pressure 70 mm[Hg] Text Entry Free [facility] 11-25-2021 21:44-0500 Heart rate 74 /min [facility] 11-25-2021 21:44-0500 Respiratory rate 16 /min Text Entry Free [facility] 11-25-2021 21:44-0500 SaO2% (BldA) [Mass fraction] 98 % Text Entry Free [facility] 11-25-2021 21:44-0500 Systolic blood pressure 127 mm[Hg] Text Entry Free [facility] 06-11-2021 09:38-0400 Body height 166.37 cm Elisabeth Mathis MD Work Phone: [facility] Work Phone: 06-11-2021 09:38-0400 Body mass index (BMI) [Ratio] 23.76 kg/m2 Elisabeth Mathis MD Work Phone: [facility] Work Phone: 06-11-2021 09:38-0400 Body surface area Derived from formula 1.74 m2 Elisabeth Mathis MD Work Phone: [facility] [place] Work Phone: 06-11-2021 09:38-0400 Body temperature 96.2 [degF] Elisabeth Mathis MD Work Phone: [facility] [place] Work Phone: 06-11-2021 09:38-0400 Body weight 65.77 kg Elisabeth Mathis MD Work Phone: [facility] [place] Work Phone: 06-11-2021 09:38-0400 Respiratory rate 15 /min Elisabeth Mathis MD Work Phone: [facility] [place] Work Phone: 04-14-2021 16:36-0400 Diastolic blood pressure 74 mm[Hg] Text Entry Free [facility] 04-14-2021 16:36-0400 Heart rate 63 /min Text Entry Free [facility] 04-14-2021 16:36-0400 Respiratory rate 16 /min Text Entry Free [facility] 04-14-2021 16:36-0400 SaO2% (BldA) [Mass fraction] 98 % Text Entry Free [facility] 04-14-2021 16:36-0400 Systolic blood pressure 111 mm[Hg] Text Entry Free [facility] 04-14-2021 10:54-0400 Body temperature 97.88 [degF] Text Entry Free [facility] 04-14-2021 10:54-0400 Body weight 57.7 kg Text Entry Free [facility] Encounters Encounter Date Encounter Type Care Provider Facility Start: 09-09-2025 ambulatory Nilam Callaway Facility :[facility] Start: 09-09-2025 End: 09-09-2025 ambulatory Evelia Cadet NP Facility:[facility] Start: 08-05-2025 ambulatory EVELIA CADET [facility] Start: 06-30-2025 End: 06-30-2025 ambulatory Evelia Cadet PUBLIC HEALTH PROGRAM MANAGER-C Work Phone: -Laboratory Specimen Start: 06-30-2025 End: 06-30-2025 Patient encounter procedure Alejandra Wilder PUBLIC HEALTH PROGRAM MANAGER-C -Laboratory Specimen Work Phone: Start: 06-30-2025 End: 06-30-2025 Patient encounter procedure Alejandra Wilder PUBLIC HEALTH PROGRAM MANAGER-C -[facility] Work Phone: Start: 06-30-2025 End: 06-30-2025 ambulatory Evelia Cadet PUBLIC HEALTH PROGRAM MANAGER-C Work Phone: -[facility] Start: 06-30-2025 End: 06-30-2025 ambulatory Alejandra Wilder Facility:[facility] Start: 04-28-2025 End: 04-28-2025 Patient encounter procedure Alejandra Wilder PUBLIC HEALTH PROGRAM MANAGER-C -[facility] Work Phone: Start: 04-28-2025 End: 04-28-2025 ambulatory Evelia Cadet PUBLIC HEALTH PROGRAM MANAGER-C Work Phone: [facility] Work Phone: Start: 03-12-2025 End: 05-12-2025 Follow-up encounter Emeterio Pizano Work Phone: Podiatry Start: 03-10-2025 End: 03-10-2025 ambulatory EMETERIO PIZANO Facility:[facility] Start: 03-10-2025 End: 03-10-2025 Patient encounter procedure Emeterio Pizano Work Phone: Podiatry Comment on above: Arthritis of left mi dfoot (Primary Dx) Start: 03-10-2025 End: 03-10-2025 ambulatory EMETERIO PIZANO Facility:[facility] Start: 03-10-2025 End: 03-10-2025 Subsequent hospital visit by physician [facility] Work Phone: Radiology Comment on above: Pain [R52] Start: 10-23-2024 End: 10-23-2024 ambulatory Evelia Cadet NP Facility:[facility] Start: 10-23-2024 End: 10-23-2024 ambulatory Evelia Cadet NP Facility:[facility] Start: 01-11-2024 End: 01-11-2024 ambulatory PUBLIC HEALTH PROGRAM MANAGER-C Evelia Cadet PUBLIC HEALTH PROGRAM MANAGER Work Phone: [facility] Work Phone: Start: 01-11-2024 End: 01-11-2024 Patient encounter procedure PUBLIC HEALTH PROGRAM MANAGER-Elodia Cadet PUBLIC HEALTH PROGRAM MANAGER Work Phone: [facility]-Laboratory, Specimen Work Phone: Start: 01-11-2024 End: 01-11-2024 Patient encounter procedure PUBLIC HEALTH PROGRAM MANAGER-C Evelia Cadet PUBLIC HEALTH PROGRAM MANAGER Work Phone: [facility] Work Phone: Start: 12-04-2023 End: 12-04-2023 Patient encounter procedure PUBLIC HEALTH PROGRAM MANAGER-C Evelia Cadet PUBLIC HEALTH PROGRAM MANAGER Work Phone: [facility] Work Phone: Start: 11-26-2023 End: 11-26-2023 Emergency department patient visit [facility]-Emergency Department Work Phone: Start: 11-16-2023 Telephone encounter Alejandar García vicksaniya BOMB TECHNICIAN - QC SCIENTIST Work Phone: [facility] Clinical Communication Start: 06-10-2023 End: 06-10-2023 ambulatory [facility] Start: 05-05-2023 ambulatory ADELA VELEZ Fac ility:[facility] Start: 05-05-2023 End: 05-05-2023 Office outpatient visit 25 minutes Adela Velez MD Work Phone: Primary Care [facility] [employer] Comment on above: Diffuse otitis exter na of right ear, unspecified chronicity; Chronic posttraumatic stress disorder; Environmental and seasonal allergies Start: 04-11-2023 ambulatory SELF SELF Facility:[facility] Start: 04-11-2023 End: 04-11-2023 Office outpatient visit 15 minutes Adela Velez MD Work Phone: [facility] [employer] Comment on above: Diffuse otitis exter na of right ear, unspecified chronicity (Primary Dx); Enlarged lymph node in neck Start: 02-13-2023 ambulatory SELF SELF Facility:[facility] Start: 01-25-2023 ambulatory POLO COELHO Facility:[facility] Start: 01-23-2023 ambulatory SELF SELF Facility:[facility] Start: 01-23-2023 End: 01-23-2023 Office outpatient visit 15 minutes Polo Coelho MD Work Phone: [facility] [employer] Comment on above: Chronic posttraumati c stress disorder (Primary Dx); Vaginal itching Start: 12-13-2022 ambulatory POLO CITLALI Facility:[facility] Start: 12-08-2022 ambulatory POLO COELHO Facility:[facility] Start: 11-28-2022 ambulatory SELF SELF Facility:[facility] Start: 11-28-2022 End: 11-28-2022 Office outpatient visit 15 minutes Polo Coelho MD Work Phone: [facility] [employer] Comment on above: Chronic posttraumati c stress disorder (Primary Dx); Increased thirst; Pseudoseizures; Food insecurity Start: 10-10-2022 ambulatory SELF SELF Facility:[facility] Start: 10-10-2022 End: 10-10-2022 Office outpatient visit 25 minutes Polo Coelho MD Work Phone: [facility] [employer] Comment on above: Pseudoseizures (Prim marjorie Dx); Chronic posttraumatic stress disorder; Chronic diffuse otitis externa of both ears; TMJ (dislocation of temporomandibular joint), initial encounter Start: 09-10-2022 End: 09-10-2022 Emergency department patient visit Britt Newton [facility] 10 Start: 07-28-2022 ambulatory POLO COELHO Facility:[facility] Start: 07-26-2022 ambulatory ADELA VELEZ [facility] ility:[facility] Start: 07-26-2022 End: 07-26-2022 Office outpatient visit 15 minutes Adela Velez MD Work Phone: [facility] [employer] Comment on above: Vaginal itching (Joana romeo Dx); Vaginal yeast infection Start: 07-10-2022 End: 07-10-2022 Emergency department patient visit Provider Pending Facility:[id number] Start: 07-04-2022 ambulatory SELF SELF Facility:[facility] Start: 07-04-2022 End: 07-04-2022 Office outpatient visit 15 minutes Polo Coelho MD Work Phone: [facility] Care [facility] [employer] Comment on above: Vaginal yeast infect ion (Primary Dx); Nausea; Otalgia of both ears Start: 06-15-2022 ambulatory Randy Del Toro Fac ility:[id number] Start: 06-10-2022 ambulatory POLO COELHO Facility:[facility] Start: 06-06-2022 ambulatory POLO COELHO Facility:[facility] Start: 06-06-2022 End: 06-06-2022 Patient encounter procedure Polo Coelho MD Work Phone: [facility] [employer] Start: 06-06-2022 End: 06-06-2022 Periodic preventive med est patient 18-39 yrs Polo Coelho MD Work Phone: [facility] [employer] Comment on above: Well woman exam with routine gynecological exam (Primary Dx); Counseling for control, intrauterine device Start: 06-03-2022 JOSEPH Del Toro DO [facility] Work Phone: Start: 05-27-2022 ambulatory POLO COELHO Facility:[facility] Start: 05-23-2022 ambulatory POLO COELHO Facility:[facility] Start: 05-23-2022 End: 05-23-2022 Office outpatient visit 25 minutes Polo Coelho MD Work Phone: [facility] [employer] Comment on above: Stress and adjustmen t reaction (Primary Dx); Medication intolerance; Pseudoseizures; History of being in foster care Start: 05-02-2022 End: 05-02-2022 Office outpatient new 30 minutes Polo Coelho MD Work Phone: [facility] [employer] Comment on above: Vaginal odor (Primar y Dx); Nabothian cyst Start: 04-26-2022 Office outpatient ne w 45 minutes Sobeida Beauchamp MD Work Phone: [facility] [address] Work Phone: Start: 2022 Follow-up encounter Joan Lynch rs Work Phone: [facility] Work Phone: Start: 03-26-2022 End: 03-27-2022 Emergency department patient visit Ross Santos [facility] 17 Start: 03-13-2022 End: 03-13-2022 Emergency department patient visit Susan Lenny [facility] 02 Start: 02-12-2022 End: 02-12-2022 Emergency department patient visit Stan Bridges MD Work Phone: [facility] Comment on above: Panic attack (Primar y Dx) Start: 01-15-2022 End: 01-15-2022 Emergency department patient visit Monica Garcia [facility] 01 Start: 11-26-2021 End: 11-26-2021 Emergency department patient visit Connie Rivero [facility] [employer] Start: 11-25-2021 End: 11-26-2021 Emergency department patient visit Susan Lenny [facility] Wait Start: 08-12-2021 AUDIT Elisabeth Mathis MD Work Phone: [facility] Work Phone: Start: 06-11-2021 Office outpatient ne w 45 minutes Elisabeth Mathis MD Work Phone: [facility] [place] Work Phone: Start: 05-11-2021 End: 05-11-2021 Subsequent hospital visit by physician Riddhi Rangel MD Work Phone: [facility] Laboratory Comment on above: Weight loss Start: 04-14-2021 End: 04-14-2021 Emergency department patient visit Alessandro Zamora [facility] 22 Start: 04-09-2021 End: 04-09-2021 Subsequent hospital visit by physician Carmen Aguilera BOMB TECHNICIAN - QC SCIENTIST Work Phone: [facility] Laboratory Start: 07-10-2020 End: 07-10-2020 Subsequent hospital visit by physician Cordelia Hassan Work Phone: [facility] Start: 07-09-2020 End: 07-09-2020 Subsequent hospital visit by physician Cordelia Hassan Work Phone: [facility] Comment on above: Missed periods; Dark stools Start: 06-17-2020 End: 06-17-2020 Subsequent hospital visit by physician Cordelia Hassan Work Phone: [facility] Comment on above: Mass overlapping mul tiple quadrants of right breast Start: 03-03-2020 End: 03-03-2020 Subsequent hospital visit by physician Cordelia Hassan Work Phone: [facility] Comment on above: Arthralgia, unspecif ied joint Start: 10-25-2019 End: 10-25-2019 Subsequent hospital visit by physician Alistair Vaughn BOMB TECHNICIAN - QC SCIENTIST Work Phone: [facility] Radiology Comment on above: Acute pain of right knee Start: 05-01-2018 End: 05-04-2018 [facility] Start: 10-17-2017 End: 10-18-2017 [facility] Procedures Date Procedure Procedure Detail Performing Clinician Start: 06-30-2025 Urine culture Evelia Cadet PUBLIC HEALTH PROGRAM MANAGER-C Work Phone: Start: 06-30-2025 Urnls dip stick/tabl et reagent auto microscopy Evelia Cadet PUBLIC HEALTH PROGRAM MANAGER-C Work Phone: Start: 01-11-2024 Urine culture PUBLIC HEALTH PROGRAM MANAGER-C Maynor Cadet PUBLIC HEALTH PROGRAM MANAGER Work Phone: Start: 11-26-2023 CT of abdomen and pe lvis without contrast Start: 02-12-2022 Assay of ethanol Ethel Bridges MD Work Phone: Start: 02-12-2022 Basic metabolic pane l calcium total Stan Bridges MD Work Phone: Start: 05-11-2021 Assay of thyroid stimulating hormone tsh Riddhi Rangel MD Work Phone: Start: 05-11-2021 Microscopic observat ion [Identifier] in Cervix by Cyto stain Stan Bridges MD Work Phone: Start: 04-14-2021 End: 04-14-2021 EKG impression Britt Newton Start: 04-09-2021 Comprehensive metabo lic panel Carmen Aguilera BOMB TECHNICIAN - QC SCIENTIST Work Phone: Start: 04-09-2021 Lipid panel Carmen Aguilera BOMB TECHNICIAN - QC SCIENTIST Work Phone: Start: 07-09-2020 25 hydroxy includes fractions if performed Cordelia Hernan Work Phone: Start: 07-09-2020 Assay of thyroid stimulating hormone tsh Cordelia Lisjessicaevski Work Phone: Start: 07-09-2020 Blood count complete auto&auto difrntl wbc Cordelia Jovaniski Work Phone: Start: 07-09-2020 Comprehensive metabo lic panel Cordelia Lisjessicaevski Work Phone: Start: 07-09-2020 Gonadotropin chorion ic qualitative Cordelia Lisjessicaevski Work Phone: Start: 06-17-2020 Mammography Alejandra Bu ssey BOMB TECHNICIAN - QC SCIENTIST Work Phone: Start: 03-03-2020 C-reactive protein Pratima a Hernan Work Phone: Start: 03-03-2020 Rheumatoid factor quantitative Cordelia Lishnevski Work Phone: Start: 03-03-2020 Sedimentation rate r bc automated Cordelia Lisjessicaevski Work Phone: Start: 10-25-2019 Radiologic examinati on knee 3 views Alistair Vaughn BOMB TECHNICIAN - QC SCIENTIST Work Phone: Adenoid excision Elisabeth blount MD Work Phone: Appendectomy Elisabeth Mead Work Phone: Tonsillectomy Elisabeth Mathis MD Work Phone: Plan of Treatment Date Care Activity Detail Author Start: 2043 RSV Immunization age d 60 or older (1 - 1-dose 60+ series) RSV Immunization aged 60 or older (1 - 1-dose 60+ series) [place] Start: 2033 Zoster Vaccines (1 o f 2) Zoster Vaccines (1 of 2) [place] Start: 11-14-2029 DTaP/Tdap/Td vaccine (5 - Td or Tdap) DTaP/Tdap/Td vaccine (5 - Td or Tdap) [facility] Start: 11-14-2029 DTaP/Tdap/Td vaccine (5 - Td) DTaP/Tdap/Td vaccine (5 - Td) [place], [place] Start: 11-14-2029 DTaP/Tdap/Td Vaccine s (5 - Td or Tdap) DTaP/Tdap/Td Vaccines (5 - Td or Tdap) [place] Start: 11-14-2029 Tetanus vaccination TETANUS [facility] Start: 05-21-2027 DTaP/Tdap/Td vaccine (4 - Td) DTaP/Tdap/Td vaccine (4 - Td) [facility] Work Phone: Start: 05-11-2026 Screening for malignant neoplasm of cervix [facility] Start: 07-07-2025 Influenza vaccination Influenz a Vaccine (Season Ended) [facility] Start: 07-07-2024 Covid-19 Vaccine ( season) Covid-19 Vaccine ( season) [facility] Start: 05-11-2024 Screening for malignant neoplasm of cervix Pap smear [facility] Start: 11-26-2023 [facility] Start: 11-26-2023 [facility] Start: 07-26-2023 COVID-19 VACCINE (3 - Booster for Pfizer series) COVID-19 VACCINE (3 - Booster for Pfizer series) [facility] Comment on above: Postponed from 05/20 (patient preference) Start: 07-26-2023 COVID-19 VACCINE (3 - Pfizer series) COVID-19 VACCINE (3 - Pfizer series) [facility] Comment on above: Postponed from 05/20 (patient preference) Start: 07-07-2023 COVID-19 Vaccine () COVID-19 Vaccine () [place] Start: 07-07-2023 Influenza vaccination [facility] Start: 05-05-2023 Influenza vaccination INFLUENZA VACC INE (#1) [facility] Comment on above: Postponed from 07/07 (patient preference) Start: 05-01-2023 End: 05-01-2023 Patient encounter procedure 05/01/2023 Office Visit Polo Witt MD [address] [place] [address] Primary Care [facility] [employer] Start: 2023 Lipid panel LIPID SCREENING [facility] Start: 2023 Screening for malignant neoplasm of breast [facility] Start: 01-09-2023 End: 01-09-2023 Patient encounter procedure 01/09/2023 Office Visit Polo Witt MD [address] [place] [id number] [facility] [employer] Start: 11-28-2022 End: 11-28-2023 Comprehensive metabolic 2000 panel - Serum or Plasma COMPREHENSIVE METABOLIC PANEL Lab Routine Increased thirst Expected: 11/28/2022, Expires: 11/28/2023 [facility] Comment on above: Expected: 11/28/2022 , Expires: 11/28/2023 Start: 11-14-2022 End: 11-14-2022 Patient encounter procedure 11/14/2022 Office Visit Polo Witt MD [address] [place] [address] Primary Care [facility] Start: 10-03-2022 End: 10-03-2022 Patient encounter procedure 10/03/2022 Office Visit Polo Witt MD [address] [place] [address] Primary Care [facility] [employer] Start: 07-07-2022 Influenza vaccination O [facility] Start: 07-04-2022 End: 07-04-2022 Patient encounter procedure 07/04/2022 Office Visit Polo Witt MD [address] [address] [address] [place] [address] [facility] Start: 06-15-2022 NPV, Provider: Randy Del Toro, Status: Pen, Time: 9:15 AM NPV, Provider: Randy Del Toro, Status: Pen, Time: 9:15 AM [facility] Work Phone: Start: 06-01-2022 Depression Monitoring Depression [facility] Start: 05-30-2022 End: 05-30-2022 Patient encounter procedure 05/30/2022 Office Visit Polo Witt MD [address] [address] [address] [place] [address] Primary [facility] Start: 05-23-2022 End: 05-23-2022 Patient encounter procedure 05/23/2022 Office Visit Polo Witt MD [address] [place] [address] Primary Care [facility] Start: 05-02-2022 End: 05-02-2023 BACTERIAL VAGINOSIS PANEL BACTERIAL VAGINOSIS PANEL Microbiology Routine Vaginal odor Expected: 05/02/2022, Expires: 05/02/2023 [facility] Comment on above: Expected: 05/02/2022 , Expires: 05/02/2023 Start: 05-02-2022 End: 05-02-2023 IRWIN/ TRICHOMONAS PANEL IRWIN/ TRICHOMONAS PANEL Microbiology Routine Vaginal odor Expected: 05/02/2022, Expires: 05/02/2023 [facility] Comment on above: Expected: 05/02/2022 , Expires: 05/02/2023 Start: 04-26-2022 NPV, Provider: Sobeida Beauchamp, Status: Pen, Time: 1:00 PM NPV, Provider: Sobeida Beauchamp, Status: Pen, Time: 1:00 PM [address] Work Phone: Start: 2022 Patient encounter procedure Otolaryngology [place] Start: 04-09-2022 Diabetes mellitus screening Diabetes Screening [place] Start: 03-07-2022 End: 03-07-2022 Patient encounter procedure 03/07/2022 Appointment Radiology [facility] Start: 08-25-2021 COVID-19 Vaccine (3 - Booster for Pfizer series) COVID-19 Vaccine (3 - Booster for Pfizer series) [facility] Start: 07-07-2021 Influenza vaccination S [facility] Work Phone: Start: 06-01-2021 End: 06-01-2021 Patient encounter procedure [facility] Start: 05-21-2021 End: 05-21-2021 Patient encounter procedure 05/21/2021 Office Visit Neurology Leonid Estevez MD [address] [place] [address] [place] [address] [phone] [facility] Neurology [place] Start: 05-20-2021 COVID-19 VACCINE (3 - Booster for Pfizer series) COVID-19 VACCINE (3 - Booster for Pfizer series) [facility] Start: 04-13-2021 End: 04-13-2021 Nursing evaluation of patient and report 04/13/2021 Nurse Only Family Medicine [facility] Start: 07-07-2020 Influenza vaccination [facility] Start: 06-02-2020 End: 06-02-2020 Office Visit 06/02/2020 Office Visit Rheumatology Hussein Rios MD [address] [place] [address] [phone] Rhe[facility] Start: 07-07-2019 Influenza vaccination [facility] (# [facility] Work Phone: Start: 2004 Cervical cancer screen Cervical canc er screen [facility] Work Phone: Start: 2004 Screening for malignant neoplasm of cervix [facility] Start: 2002 Hepatitis B Vaccine (1 of 3 - 19+ 3-dose series) Hepatitis B Vaccine (1 of 3 - 19+ 3-dose series) [facility] Start: 2002 Hepatitis B Vaccines (1 of 3 - 19+ 3-dose series) Hepatitis B Vaccines (1 of 3 - 19+ 3-dose series) [place] Start: 2002 Third diphtheria, tetanus and acellular pertussis (DTaP) vaccination TDAP (ADULT) [facility] Start: 2002 Urine microalbumin profile DTaP,Tdap,Td Vaccine (1 - Tdap) [facility] Start: 2001 Anxiety Screening Anxiety Screening [facility] Start: 2001 Depression Screening Depression Scre ening [facility] Start: 2001 Hepatitis C screening Hepatitis C Sc reening [facility] Start: 2001 HIV screening HIV Screening [facility] Start: 2001 Tetanus vaccination TETANUS [facility] Start: 1998 HIV screening HIV SCREENING DISCUSSION [facility] Start: 1996 Varicella vaccination Varicell a Vaccines (1 of 2 - 13+ 2-dose series) [place] Start: 1995 Depression Screening Depression Scre ening [place] Start: 1989 Pneumococcal 0-64 years Vaccine (1 of 1 - PPSV23) Pneumococcal 0-64 years Vaccine (1 of 1 - PPSV23) [facility] Work Phone: Start: 1989 Pneumococcal 0-64 years Vaccine (1 of 2 - PPSV23) Pneumococcal 0-64 years Vaccine (1 of 2 - PPSV23) [facility] Start: 1989 PNEUMOCOCCAL VACCINE SERIES (1 - PCV) PNEUMOCOCCAL VACCINE SERIES (1 - PCV) [facility] Start: 1989 Pneumococcal Vaccine : Pediatrics (0 to 5 Years) and At-Risk Patients (6 to 64 Years) (1 of 2 - PCV) Pneumococcal Vaccine: Pediatrics (0 to 5 Years) and At-Risk Patients (6 to 64 Years) (1 of 2 - PCV) [place] Start: 1984 MMR Vaccines (1 of 1 - Standard series) MMR Vaccines (1 of 1 - Standard series) [place] Start: 1984 Varicella vaccine (1 of 2 - 2-dose childhood series) Varicella vaccine (1 of 2 - 2-dose childhood series) [facility] Work Phone: Start: 1983 COVID-19 VACCINE (#1) COVID-19 VACCI NE (#1) [facility] Start: 1983 Hepatitis C antibody , confirmatory test HEPATITIS C VIRUS SCREENING [facility] Start: 1983 Hepatitis C screening [facility] Start: 1983 HIV screening HIV Screening [facility] BACTERIAL VAGINOSIS(VAGINITIS PANEL) BACTERIAL VAGINOSIS(VAGINITIS PANEL) Microbiology Routine Vaginal yeast infection Vaginal itching Ordered: 07/26/2022 [facility] Comment on above: Ordered: 07/26/2022 BACTERIAL VAGINOSIS(VAGINITIS PANEL) BACTERIAL VAGINOSIS(VAGINITIS PANEL) Microbiology Routine Vaginal itching Ordered: 01/23/2023 [facility] Comment on above: Ordered: 01/23/2023 End: 07-10-2020 Blood occult fecal hgb deter ia qual feces 1-3 Fecal Blood Immunochemical Test Lab Routine Once for 1 Occurrences starting 07/10/2020 until 07/10/2020 [facility] [place] [place] Comment on above: Once for 1 Occurrenc es starting 07/10/2020 until 07/10/2020 Blood occult fecal h gb deter ia qual feces 1-3 Fecal Blood Immunochemical Test Lab Routine 07/09/2020 4:00 PM EDT [place], [place] IRWIN VAGINOSIS(VAGINITIS PANEL) IRWIN VAGINOSIS(VAGINITIS PANEL) Microbiology Routine Vaginal yeast infection Vaginal itching Ordered: 07/26/2022 [facility] Comment on above: Ordered: 07/26/2022 IRWIN VAGINOSIS(VAGINITIS PANEL) IRWIN VAGINOSIS(VAGINITIS PANEL) Microbiology Routine Vaginal itching Ordered: 01/23/2023 [facility] Comment on above: Ordered: 01/23/2023 Chlamydia trachomatis+Neisseria gonorrhoeae DNA [Presence] in Unspecified specimen by Probe with signal amplification CHLAMYDIA & GONORRHEA AMPLIFIED PROBE Microbiology Routine Vaginal odor Ordered: 05/02/2022 [facility] Comment on above: Ordered: 05/02/2022 Chlamydia trachomatis+Neisseria gonorrhoeae DNA [Presence] in Unspecified specimen by Probe with signal amplification CHLAMYDIA & GONORRHEA AMPLIFIED PROBE Microbiology Routine Well woman exam with routine gynecological exam Ordered: 06/06/2022 [facility] Comment on above: Ordered: 06/06/2022 Cytology Cervical or vaginal smear or scraping study CYTOLOGY-TANKER DRIVER, LIQUID BASED Cytology Routine Well woman exam with routine gynecological exam Ordered: 06/06/2022 [facility] Comment on above: Ordered: 06/06/2022 End: 04-09-2021 Hepatitis C Antibody Hepatitis C Antibody Lab Routine Once for 1 Occurrences starting 04/09/2021 until 04/09/2021 [facility] Work Phone: Comment on above: Once for 1 Occurrenc es starting 04/09/2021 until 04/09/2021 Hepatitis C Antibody Hepatitis C Antibody Lab Routine 04/09/2021 4:42 PM EDT [facility] Work Phone: End: 06-17-2020 [facility] DIGITAL DIAGNOSTIC W OR WO CAD BILATERAL [facility] DIGITAL DIAGNOSTIC W OR WO CAD BILATERAL Imaging Routine Mass overlapping multiple quadrants of right breast 1 Occurrences starting 06/17/2020 until 06/17/2020 [place], [place] Comment on above: 1 Occurrences starti ng 06/17/2020 until 06/17/2020 End: 06-17-2020 ROBERTH SAM DIGITAL DIAGNOSTIC BILATERAL ROBERTH SAM DIGITAL DIAGNOSTIC BILATERAL Imaging Routine Once for 1 Occurrences starting 06/17/2020 until 06/17/2020 [place], [place] Comment on above: Once for 1 Occurrenc es starting 06/17/2020 until 06/17/2020 ROBERTH SAM DIGITAL DIAGNOSTIC BILATERAL ROBERTH SAM DIGITAL DIAGNOSTIC BILATERAL Imaging Routine 06/17/2020 2:02 PM EDT [place], [place] End: 03-03-2020 Nuclear Ab IF (S) [Titer] FELICIA Lab Routine Arthralgia, unspecified joint 1 Occurrences starting 03/03/2020 until 03/03/2020 [place], [place] Comment on above: 1 Occurrences starti ng 03/03/2020 until 03/03/2020 Nuclear Ab IF (S) [Titer] FELICIA Lab Routine Arthralgia, unspecified joint 03/03/2020 2:17 PM EDT [place], [place] Patient Education ED Groin Strain [facility] Work Phone: Patient referral [facility] Work Phone: TRICHOMONAS VAGINOSIS(VAGINITIS PANEL) TRICHOMONAS VAGINOSIS(VAGINITIS PANEL) Microbiology Routine Vaginal yeast infection Vaginal itching Ordered: 07/26/2022 [facility] Comment on above: Ordered: 07/26/2022 End: 02-12-2022 Urinalysis Urinalysis Lab STAT One Time for 1 Occurrences starting 02/12/2022 until 02/12/2022 [facility] Work Phone: Comment on above: One Time for 1 Occur rences starting 02/12/2022 until 02/12/2022 Urinalysis complete panel - Urine [facility] End: 02-12-2022 Urine Drug Screen Urine Drug Screen Lab STAT One Time for 1 Occurrences starting 02/12/2022 until 02/12/2022 [facility] Work Phone: Comment on above: One Time for 1 Occur rences starting 02/12/2022 until 02/12/2022 End: 06-17-2020 US Breast Limited Right [place], [place] Comment on above: 1 Occurrences starti ng 06/17/2020 until 06/17/2020 Once for 1 Occurrenc es starting 06/17/2020 until 06/17/2020 US BREAST LIMITED RIGHT US BREAST LIMITED RIGHT Imaging Routine 06/17/2020 2:25 PM EDT [facility] [place], [place] VAGINAL INFECTION PANEL VAGINAL INFECTION PANEL Microbiology Routine Vaginal yeast infection Vaginal itching Ordered: 07/26/2022 [facility] Comment on above: Ordered: 07/26/2022 VAGINAL INFECTION PANEL VAGINAL INFECTION PANEL Microbiology Routine Vaginal itching Ordered: 01/23/2023 [facility] Comment on above: Ordered: 01/23/2023 VAGINITIS DNA PROBES VAGINITIS D NA PROBES Microbiology Routine Well woman exam with routine gynecological exam Ordered: 06/06/2022 [facility] Comment on above: Ordered: 06/06/2022 XR Foot - bilateral AP and Lateral and oblique XR FOOT GENERAL 3V AP/LAT/OBL BILATERAL Radiology Routine Pain 03/10/2025 8:01 AM EDT [facility] Work Phone: [facility] Immunizations Immunization Date Immunization Notes Care Provider Fa [facility] 09-10-2021 influenza, injectabl e, quadrivalent, preservative free Stan Bridges MD Work Phone: [facility] 09-10-2021 influenza virus vaccine, unspecified formulation Polo Coelho MD Work Phone: [facility] 03-25-2021 Pfizer-BioNTech COVID-19 Vacc 30 MCG/0.3ML Intramuscular Suspension Elisabeth Mathis MD [facility] Work Phone: 02-25-2021 Pfizer-BioNTech COVID-19 Vacc 30 MCG/0.3ML Intramuscular Suspension Elisabeth Mathis MD Work Phone: [facility] Work Phone: 11-14-2019 tetanus toxoid, redu sol diphtheria toxoid, and acellular pertussis vaccine, adsorbed Cordelia Hassan [facility] 05-21-2017 tetanus toxoid, redu sol diphtheria toxoid, and acellular pertussis vaccine, adsorbed Alistair Vaughn APRN - QC SCIENTIST Work Phone: [facility] 10-09-2016 tetanus toxoid, redu sol diphtheria toxoid, and acellular pertussis vaccine, adsorbed Alistair Vaughn APRN - [facility] Work Phone: [facility] 09-06-2016 influenza, injectabl e, quadrivalent, preservative free Elisabeth Mathis MD Work Phone: [facility] Work Phone: 09-06-2016 influenza virus vaccine, unspecified formulation Polo Coelho MD Work Phone: [facility] 09-19-2015 influenza, seasonal, injectable, preservative free Elisabeth Mathis MD Work Phone: [facility] 10-02-2012 tetanus toxoid, redu sol diphtheria toxoid, and acellular pertussis vaccine, adsorbed Polo Coelho MD Work Phone: [facility] Payers Date Payer Category Payer Self-pay 2022 Medicaid [id number] 2021 Unknown 2021 Unknown [id number] 2018 Unknown [employer] [facility] MEDICAID xxxxxxxxxxx 2018-Present [phone] CLAIMS DEPARTMENT [address] [place] [address] xxxxxxxxxxx [id number] 2018 Unknown [id number] [id number]. [id number] 1983 Unknown [id number] 2.16.840.1.233247.3.579.2.1068 1983 Unknown [id number] 2.16.840.1.675289.3.579.2.1068 1983 Unknown [id number] 2.16.840.1.584154.3.579.2.1068 1983 Unknown [id number] 840.1.816418.3.579.2.1068 1983 Unknown [id number] .1.070191.3.579.2.1068 1983 Unknown [id number] 12.22.830.1.422646.3.579.2.1068 1983 Unknown [id number] .1.978522.3.579.2 1983 Unknown [id number] .1.077860.3.579.2. 1983 Unknown [id number] .1.045911.3.579.2 1983 Unknown [id number] .1.404615.3.579.2. 1983 Unknown [id number] .1.326803.3.579.2 1983 Unknown [id number] .1.783403.3.579.2 1983 Unknown [id number] .1.692246.3.579.2 1983 Unknown [id number] .1.475876.3.579.2. 1983 Unknown [id number] .1.828537.3.579.2594 1983 Unknown [id number] .1.537390.3.579.2.594 1983 Unknown [id number] .1.561346.3.579.2594 1983 Unknown [id number] 12.22.830.1.520554.3.579.2.594 1983 Unknown [id number] .1.683883.3.579.2.594 1983 Unknown [id number] 2.16.840.1.250799.3.579.2.594 1983 Unknown [id number] 2.16.840.1.686554.3.579.2.594 1983 Unknown [id number] 2.16.840.1.976021.3.579.2.594 1983 Unknown [id number] 2.16.840.1.713039.3.579.2.594 Unknown [id number] 2.16840.1.868751.3.579.2.462 Unknown [id number] 2.16.840.1.395232.3.579.2.462 Unknown [id number] 2.16.840.1.382046.3.579.2.462 Unknown [id number] 2.16840.1.503380.3.579.2.462 Unknown [id number] 2.16840.1.929513.3.579.2.462 Unknown [id number] 2.16840.1.036377.3.579.2.462 Unknown [id number] 2.16840.1.459776.3.579.2.462 Social History Date Type Detail Facility Start: 11-06-1995 End: 05-02-2022 Tobacco smoking status MOIS Current every day smoker [employer] Work Phone: Start: 11-06-1995 End: 11-06-2021 History of tobacco use Cigarette Smoker [employer] Phone: Start: 02-11-2020 End: 03-10-2025 Cigarettes smoked current (pack per day) - Reported [employer] Work Phone: Start: 02-11-2020 End: 10-25-2022 Alcohol intake Current non-drinker of alcohol (finding) [employer] Work Phone: Start: 07-04-2017 Alcohol Comment 5 years sober [employer] Work Phone: Start: 1985 Sex Assigned At Not on file [employer] Work Phone: Exposure to SARS-CoV -2 (event) Unable to assess [facility] [place] Start: 04-27-2020 End: 04-22-2021 Tobacco use and exposure [facility] Start: 02-02-2022 End: 11-28-2022 Exposure to SARS-CoV-2 (event) Not sure [facility] [place] Start: 11-26-2023 End: 01-11-2024 Tobacco smoking consumption unknown [facility] Start: 05-11-2021 End: 04-28-2025 Tobacco smoking status NHIS Former smoker [facility] Start: 09-10-2021 History [facility]: Start: 09-10-2021 End: 05-02-2022 History SDOH Food Worry 1 [facility] Work Phone: Start: 09-10-2021 End: 05-02-2022 History SDOH Transport Med 2 [facility] Work Phone: Start: 05-02-2022 End: 03-10-2025 Tobacco use and exposure User of smokeless tobacco [facility] History of tobacco use Chews Tobacco [facility] Start: 05-02-2022 End: 05-05-2023 Alcohol intake Current drinker of alcohol (finding) [facility] Start: 05-02-2022 History SDOH Alcohol Std Drinks 0 [facility] Start: 05-02-2022 History SDOH Physical Activity DPW 7 [facility] Start: 05-02-2022 History SDOH Physical Activity MPS 3 [facility] Start: 05-02-2022 Education 11 [facility] Start: 11-06-1995 End: 11-06-2021 History of tobacco use Current smoker [facility] Start: 05-02-2022 End: 03-10-2025 Alcohol Use Disorder Identification Test - Consumption [AUDIT-C] [facility] How often to you hav e a drink containing alcohol? Never [facility] How many standard dr inks containing alcohol do you have on a typical day? Patient does not drink [facility] How hard is it for y ou to pay for the very basics like food, housing, medical care, and heating Very hard [facility] Do you feel stress - tense, restless, nervous, or anxious, or unable to sleep at night because your mind is troubled all the time - these days [OSQ] To some extent [facility] (I/We) worried wheth er (my/our) food would run out before (I/we) got money to buy more. Never true [facility] In the past 12 month s, was there a time when you were not able to pay the mortgage or rent on time? Yes [facility] At any time in the p ast 12 months, were you homeless or living in jail [including now]? No [facility] Start: 1985 Sex Assigned At Female [facility] Start: 03-10-2025 Alcoholic beverage intake Ex-drinker (finding) [facility] Start: 03-10-2025 Tobacco Comment Nicotine pouches [facility] Sexual Orientation Heterosexual (finding) [facility] Mental Status Date Assessment Result Facility 11-26-2023 Cognitive function Level Of Cons ciousness Awake;Alert;Appropriate;Follow s Commands [facility] Work Phone: Clinical Notes 06-12-2018 to 04-28-2025 Note Date & Type Note Facility 04-28-2025 Evaluation note Diagnosis Onset Date Resolution Atopic dermatitis in adult acute April 28, 2025 10:55am Otitis externa acute April 28, 2025 10:55am Urinary tract infection noneactive June 30 10:21am [facility] Work Phone: [id number] NoteHNO ID: [id number] Author: EMETERIO PIZANO, ? Service: ? Author Type: Physician Type: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 note* Diagnosis Vaginal odor- Primary Unspecified symptom associated with female genital organs Nabothian cyst Cervicitis and endocervicitis [facility] Diagnosis Stress and adjustment reaction- Primary Medication intolerance Other drug allergy Pseudoseizures Other convulsions History of being in foster care [facility] Diagnosis Well woman exam with routine gynecological exam- Primary Routine gynecological examination Counseling for control, intrauterine device General counseling for initiation of other contraceptive measures [facility] Diagnosis Vaginal yeast infection- Primary Candidiasis of vulva and vagina Nausea Nausea alone Otalgia of both ears Otalgia, unspecified [facility] Diagnosis Vaginal itching- Primary Pruritus of genital organs Vaginal yeast infection Candidiasis of vulva and vagina [facility] Diagnosis Pseudoseizures- Primary Other convulsions Chronic posttraumatic stress disorder Posttraumatic stress disorder Chronic diffuse otitis externa of both ears TMJ (dislocation of temporomandibular joint), initial encounter [facility] Diagnosis Chronic posttraumatic stress disorder- Primary Posttraumatic stress disorder Increased thirst Polydipsia Pseudoseizures Other convulsions Food insecurity [facility] Diagnosis Chronic posttraumatic stress disorder- Primary Posttraumatic stress disorder Vaginal itching Pruritus of genital organs [facility] Diagnosis Diffuse otitis externa of right ear, unspecified chronicity- Primary Enlarged lymph node in neck [facility] Diagnosis Diffuse otitis externa of right ear, unspecified chronicity Chronic posttraumatic stress disorder Posttraumatic stress disorder Environmental and seasonal allergies [facility] assessment information available [facility] Work Phone: Evaluation note* Diagnosis Onset Date Resolution Status Acute diffuse otitis externa of both ears acute Dysuria acute [facility] Work Phone: Evaluation note* Diagnosis Arthritis of left midfoot- Primary [facility]* Diagnosis Pain Generalized pain documented in this encounter [facility] note* Diagnosis Onset Date Resolution Status Admit Date Atopic dermatitis in adult acute April 28, 2025 10:55am Otitis externa acute April 28, 2025 10:55am [facility] Work Phone: History of Present illness Narrative* Naila Warren, age 37 years, was seen today for an audiologic evaluation prior to upcoming appointment with ENT. Naila reported that she has been experiencing bilateral otalgia for almost 3 years that she rates a 20/10 on the pain scale. Naila suffers from severe eczema on both pinnas and in both ears canals. She noted that she has been experiencing recurrent ear infections / drainage. She feels her hearing has decreased as she often asks for repetition. She noted occasional, bilateral aural fullness but denied tinnitus, dizziness, history of otologic surgeries or history of loud noise exposure. * Her most recent hearing test on 06/11/2021 showed mild sensorineural hearing loss rising to normal hearing sensitivity in both ears. Previous ENT notes from Dr. Mathis indicated TMJ dysfunction and eczema of the external ears. * Patient's preferred language: Brazilian * Preferred language of the parent, legal guardian or surrogate decision-maker of this minor or incapacitated patient: Not Applicable * No overt signs of domestic violence/neglect/abuse. * No referral made to Workers Compensation Analyst. * Pain not interfering with optimal level of function or ability to assess and/or treat. * Pain Scale rank: 10/10 * Pain Scale used: Numeric * No referral made to primary care provider (PCP). * Factors/Barriers influencing patient's ability to complete assessment or learn: none. * Person taught: patient. * Readiness to learn: no barriers. * Results of Teaching/Counseling: verbalize recall / understanding and teaching complete. [address] Work Phone: Hospital Discharge instructions* Instructions* Stan Bridges MD - 02/12/2022 You presented emergency room today with a panic attack and acute stress reaction after confronting her ex-. You were found to be alert and oriented appropriately with no suicidal homicidal ideation. If your symptoms or panic returns you to feel that you are unsafe at home, I would recommend you come back immediately. Otherwise follow-up with your doctor. * Attachments The following attachments cannot be sent through Care Everywhere. * Panic Attacks (Brazilian) * Mental Health Crisis: Getting Help: General Info (Brazilian) [facility] Work Phone: Hospital Discharge instructions Additional Instructions Follow-up with your PCP, return for any worsening of your symptoms.[facility] Work Phone: Instructions* Attachments The following attachments cannot be sent through Care Everywhere. * Earache: Adult (Brazilian) [facility] (narrative)* Consultation (Routine) - New Request Specialty Diagnoses / Procedures Referred By Ac aguilar Referred To Contact ARCHITECTURAL MODELER Diagnoses Counseling for control, intrauterine device Polo Coelho MD [address] [place] [address] Referral ID Status Reason Start Date Expiration Date V isits Requested Visits Authorized [id number] New Request 06/06/2022 07/01/2023 1 1 [facility] (narrative)No reason for referral [facility] Work Phone: Reason for visit Narrative* Diagnostic Procedure Only (Routine) - Closed Specialty Diagnoses / Procedures Referred By Contac t Referred To Contact XR IMAGING Diagnoses Pain Procedures XR FOOT GENERAL 3V AP/LAT/OBL BILATERAL RADEX FOOT COMPLETE MINIMUM [address] [place] [address] Phone: tel: fax: [place] [id number] Referral ID Status Reason Start Date Expiration Date V isits Requested Visits Authorized [id number] Closed Auto-Generate d Referral 02/26/2025 03/28/2026 1 1 [facility] Summary Purpose Family History No Family History Records Found Relationship Condition Age at Onset Recorded Date/T rosalie father Malignant neoplasm Unknown Diabetes mellitus Unknown grandmother Malignant neoplasm of breast Unknown Cerebrovascular accident (CVA) Unknown mother Diabetes mellitus Unknown Advance Directives No Advanced Directives Records FoundDocuments on File Type Date Recorded 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 Control Agent Expl anation Advance Directives and Living Will Power of Shearer Screen Measurer And Trimmer Latest Code Status on File Code Status Date Activated Date Inactivated Comments Full Code 07/06/2017 9:25 AM 07/06/2017 4:09 PM Full Code 10/07/2016 7:54 AM 10/09/2016 1:50 PM Documents on File Type Date Recorded 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 Control Agent Expl anation Advance Directives and Living Will Power of Shearer Screen Measurer And Trimmer Latest Code Status on File Code Status Date Activated Date Inactivated Comments Full Code 07/06/2017 9:25 AM 07/06/2017 4:09 PM Full Code 10/07/2016 7:54 AM 10/09/2016 1:50 PM Documents on File Type Date Recorded 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 Control Agent Expl anation ACP-Advance Directive ACP-Power of Shearer Screen Measurer And Trimmer Advance Directive Response Recorded Date/ Time Living Will No November 26 5:22pm Power of Shearer Screen Measurer And Trimmer No November 26, 2023 5:22pm Advance Directive Response Recorded Date/ Time Living Will No November 26 6:22pm Power of Shearer Screen Measurer And Trimmer No November 26, 2023 6:22pm Assessments Diagnosis Arthralgia, unspecified joint Diagnosis Mass overlapping multiple quadrants of right breast Diagnosis Missed periods Absence of menstruation Dark stools Nonspecific abnormal finding in stool contents Reason for Referral Status Reason Specialty Diagnoses / Procedures Referred By Contact Referred To Contact Pending Review Radiology Diagnoses Mass overlapping multiple quadrants of right breast Procedures US Breast Limited Right Cordelia Hassan MD [address] [place] [address] Status Reason Specialty Diagnoses / Procedures Referre d By Contact Referred To Contact Closed Radiology Diagnoses Mass overlapping multiple quadrants of right breast Procedures ROBERTH DIGITAL DIAGNOSTIC W OR WO CAD BILATERAL Cordelia Hassan MD [address] [place] [address] Chief Complaint New patient visit ear pain Chief Complaint and Reason for Visit Chief Complaint ABD PAIN Chief Complaint ABD PAIN CONCERN FOR STREP THROAT UTI, EAR INFECTION Reason for Visit Acute diffuse otitis externa of both ears Dysuria Chief Complaint Admit Date ACUTE UTI, NOT GETTING BETTER-EST IN JunApril 28, 2025 10:55am Reason for Visit Admit Date Atopic dermatitis in adult April 28 10:55am Otitis externa April 28, 2025 10:5 5am Chief Complaint Admit Date ACUTE UTI, NOT GETTING BETTER-EST IN JunApril 28, 2025 10:55am Urinary tract infection June 30 10:21am Reason for Visit Admit Date Atopic dermatitis in adult April 28 10:55am Otitis externa April 28, 2025 10:5 5am Urinary tract infection June 30 10:21am Additional Source Comments INFORMATION SOURCE (unrecogn ized section and content) DATE CREATED AUTHOR 05/04/[address] [facility] DATE CREATED AUTHOR AUTHOR'S ORGANIZ ATION 05/09/2021 [facility] [employer] DATE CREATED AUTHOR AUTHOR'S ORGANIZ ATION 03/08/2022 [facility] [employer] DATE CREATED AUTHOR AUTHOR'S ORGANIZ ATION 03/26/2022 [facility] DATE CREATED AUTHOR AUTHOR'S ORGANIZ ATION 04/27/2022 [employer] DATE CREATED AUTHOR AUTHOR'S ORGANIZ ATION 07/14/2022 [facility] DATE CREATED AUTHOR AUTHOR'S ORGANIZ ATION 12/09/2022 [facility] DATE CREATED AUTHOR AUTHOR'S ORGANIZ ATION 05/17/2023 [facility] DATE CREATED AUTHOR AUTHOR'S ORGANIZ ATION 06/14/2023 Silvesrte Jauregui [facility] DATE CREATED AUTHOR AUTHOR'S ORGANIZ ATION 11/19/2023 [facility] DATE CREATED AUTHOR AUTHOR'S ORGANIZ ATION 04/09/[address] [facility] DATE CREATED AUTHOR AUTHOR'S ORGANIZ ATION 08/10/2025 [facility] DATE CREATED AUTHOR AUTHOR'S ORGANIZ ATION 09/12/2025 [facility] Reason for Visit (unrecogniz ed section and content) Status Reason Specialty Diagnoses / Procedures Referre d By Contact Referred To Contact Closed Radiology Diagnoses Mass overlapping multiple quadrants of right breast Procedures [facility] DIGITAL DIAGNOSTIC W OR WO CAD BILATERAL Cordelia Hassan MD [address] [place] [address] Reason Comments Panic Attack Reason Comments Vaginal Odor Reason Comments Stress Reaction Reason Comments Junior Loan Processor Exam Reason Comments Follow-up Nausea, would like h er ears checked Reason Comments Yeast Infection Reason Comments Follow-up Ear drainage in both ears, feels like infection, would like drops. Started having seizures again, shaking and tremors, but awake, had one 2 weeks ago, and had tremors last night. Worse with stress, but did quit smoking 2-3 months ago. Reason Comments Medication Refill Reason Comments Depression Yeast infection Reason Comments Ear Lump right Reason Comments Depression Medication refillEar drop Reason Comments New Pain <item><item><item><item><item><item><item> Privacy Markings (unrecogniz ed section and content) Section Author: Mere Kerr PROHIBITION ON REDISCLOSURE OF CONFIDENTIAL INFORMATION This notice accompanies a disclosure of information concerning a client made to you with the consent of such client. Section Author: Mere Kerr PROHIBITION ON REDISCLOSURE OF CONFIDENTIAL INFORMATION This notice accompanies a disclosure of information concerning a client made to you with the consent of such client. Section Author: Mere Kerr PROHIBITION ON REDISCLOSURE OF CONFIDENTIAL INFORMATION This notice accompanies a disclosure of information concerning a client made to you with the consent of such client. Section Author: Mere Kerr PROHIBITION ON REDISCLOSURE OF CONFIDENTIAL INFORMATION This notice accompanies a disclosure of information concerning a client made to you with the consent of such client. Section Author: Mere Kerr PROHIBITION ON REDISCLOSURE OF CONFIDENTIAL INFORMATION This notice accompanies a disclosure of information concerning a client made to you with the consent of such client. Section Author: Mere Kerr PROHIBITION ON REDISCLOSURE OF CONFIDENTIAL INFORMATION This notice accompanies a disclosure of information concerning a client made to you with the consent of such client. Section Author: Mere Kerr PROHIBITION ON REDISCLOSURE OF CONFIDENTIAL INFORMATION This notice accompanies a disclosure of information concerning a client made to you with the consent of such client. Care Teams (unrecognized sec tion and content) Animal Caretaker Relationship Specialty Start Date End Date Becky Bullock APRN - [place] SCIENTIST [address] [address] [address] [place] [address] PCP - General Nurse Practitioner Gerontology 09/10/21 Animal Caretaker Relationship Specialty Start Date End Date Polo Coelho MD [address] [address] [address] [place] [address] PCP - General Family Medicine 05/02/22 Animal Caretaker Relationship Specialty Start Date End Date Polo Coelho MD [address] [address] [address] [place], [place] [address] PCP - General Family Medicine 05/02/22 Animal Caretaker Relationship Specialty Start Date End Date Polo Coelho MD [address] [facility] [address] [place], [place] [address] PCP - General Family Medicine 05/02/22 Animal Caretaker Relationship Specialty Start Date End Date Polo Coelho MD [address] [address] [address] [place] [address] PCP - General Family Medicine 05/02/22 Animal Caretaker Relationship Specialty Start Date End Date Polo Coelho MD [address] [address] [address] [place] [address] PCP - General Family Medicine 05/02/22 Animal Caretaker Relationship Specialty Start Date End Date Polo Ceolho MD [address] [place] [id number] PCP - General Family Medicine 05/02/22 Animal Caretaker Relationship Specialty Start Date End Date Polo Coelho MD [address] [address] PCP - General Family Medicine 05/02/22 Animal Caretaker Relationship Specialty Start Date End Date Polo Coelho MD [address] [address] PCP - General Family Medicine 05/02/22 Animal Caretaker Relationship Specialty Start Date End Date Polo Coelho MD [address] [place] [address] PCP - General Family Medicine 05/02/22 Animal Caretaker Relationship Specialty Start Date End Date Polo Coelho MD [address] [place] [address] PCP - General Family Medicine 05/02/22 Team Status: Active Member Role Status Dates Evelia Cadet PUBLIC HEALTH PROGRAM MANAGER, PUBLIC HEALTH PROGRAM MANAGER-C Primary Care Provider Active Team Status: Inactive Member Role Status Dates Wilbert Rahman MD Emergency Provider Active Evelia Cadet PUBLIC HEALTH PROGRAM MANAGER, PUBLIC HEALTH PROGRAM MANAGER-C Primary Care Provider Active Team Status: Inactive Member Role Status Dates Evelia Cadet PUBLIC HEALTH PROGRAM MANAGER, PUBLIC HEALTH PROGRAM MANAGER-C Primary Care Provider, Referri ng Provider Active Joe FLYNN, PA Attending Provider Active Team Status: Inactive Member Role Status Dates Evelia Cadet PUBLIC HEALTH PROGRAM MANAGER, PUBLIC HEALTH PROGRAM MANAGER-C Primary Care Provider, Referri ng Provider Active Moses FLYNN PA Attending Provider Active Team Status: Inactive Member Role Status Dates Wilbert Rahman MD Attending Provider, Emergency Provid er Active Evelia Cadet PUBLIC HEALTH PROGRAM MANAGER, PUBLIC HEALTH PROGRAM MANAGER-C Primary Care Provider Active Team Status: Inactive Member Role Status Dates Evelia Cadet PUBLIC HEALTH PROGRAM MANAGER, PUBLIC HEALTH PROGRAM MANAGER-C Primary Care Provider Active Moses FLYNN PA Attending Provider Active Animal Caretaker Relationship Specialty Start Date End Date Polo Coelho [address] [address] PCP - General Family Medicine 10/25/23 Team Status: Inactive Member Role Status Dates Evelia Cadet NP, PUBLIC HEALTH PROGRAM MANAGER-C Primary Care Provider Active Start: April 28, 2025 End: April 28, 2025 Evelia Cadet PUBLIC HEALTH PROGRAM MANAGER, PUBLIC HEALTH PROGRAM MANAGER-C Referring Provider Active Start: April 28, 2025 End: April 28, 2025 Alejandra Wilder PUBLIC HEALTH PROGRAM MANAGER-C Attending Provider Active Start: April 28, 2025 End: April 28, 2025 Team Status: Active Member Role/Relationship Status Dates Evelia Cadet PUBLIC HEALTH PROGRAM MANAGER, PUBLIC HEALTH PROGRAM MANAGER-C Primary Care Provider Active Team Status: Inactive Member Role/Relationship Status Dates Evelia Cadet NP, PUBLIC HEALTH PROGRAM MANAGER-C Primary Care Provider Active Start: April 28, 2025 End: April 28, 2025 Evelia Cadet NP, PUBLIC HEALTH PROGRAM MANAGER-C Referring Provider Active Start: April 28, 2025 End: April 28, 2025 Alejandra Wilder PUBLIC HEALTH PROGRAM MANAGER-C Attending Provider Active Start: April 28, 2025 End: April 28, 2025 Team Status: Inactive Member Role/Relationship Status Dates Evelia Cadet NP, PUBLIC HEALTH PROGRAM MANAGER-C Primary Care Provider Active Start: June 30, 2025 End: June 30, 2025 Evelia Cadte NP, PUBLIC HEALTH PROGRAM MANAGER-C Referring Provider Active Start: June 30, 2025 End: June 30, 2025 Alejandra Wilder PUBLIC HEALTH PROGRAM MANAGER-C Attending Provider Active Start: June 30, 2025 End: June 30, 2025 Team Status: Inactive Member Role/Relationship Status Dates Evelia Helio DESOUZA NP-Elodia Primary Care Provider Active Start: June 30, 2025 End: June 30, 2025 SAMI Solis Attending Provider Active Start: June 30, 2025 End: June 30, 2025 SAMI Solis Referring Provider Active Start: June 30, 2025 End: June 30, 2025 Goals (unrecognized section and content) Goals may be documented in a n alternate sectionGoals may be documented in an alternate sectionGoals may be documented in an alternate sectionGoals may be documented in an alternate sectionGoals may be documented in an alternate section Source Comments (unrecognize d section and content) In the event this informatio n is protected by the Federal Confidentiality of Alcohol and Drug Abuse Patient Records regulations: The Federal rules restrict any use of the information to criminally investigate or prosecute any alcohol or drug abuse patient.[facility] the event this information is protected by the Federal Confidentiality of Alcohol and Drug Abuse Patient Records regulations: The Federal rules restrict any use of the information to criminally investigate or prosecute any alcohol or drug abuse patient.[facility] the event this information is protected by the Federal Confidentiality of Alcohol and Drug Abuse Patient Records regulations: The Federal rules restrict any use of the information to criminally investigate or prosecute any alcohol or drug abuse patient.[facility] FOR RECORDS PERTAINING TO PATIENTS WHO ARE OR HAVE BEEN ENROLLED IN A CHEMICAL DEPENDENCY/SUBSTANCEABUSE PROGRAM, SOME INFORMATION MAY BE OMITTED. This clinical summary was aggregated from multiple sources. Caution should be exercised in using it in the provision of clinical care. This summary normalizes information from multiple sources, and as a consequence, information in this document may materially change the coding, format and clinical context of patient data. In addition, data may be omitted in some cases. CLINICAL DECISIONS SHOULD BE BASED ON THE PRIMARY CLINICAL RECORDS. [facility] [employer] [facility]. provides no warranty or guarantee of the accuracy or completeness of information in this document.
== END | disposition home or self-care (01) ==
LOC: OPBI 07:36
PROVIDERS: PCP Internal Medicine; Referring Provider Internal Medicine; Visit Provider Internal Medicine
DX: Z12.31 Encounter for screening mammogram for malignant neoplasm of breast (principal)
CPT/HCPCS: 77063; 77067

== ENCOUNTER → 2025-10-27 | Outpatient (CLI) | payer MEDICAID, SELFPAY | END | disposition home or self-care (01) | LOC: LABSPEC 12:00 | PROVIDERS: PCP Internal Medicine; Visit Provider Nurse Practitioner Women's Health | DX: N89.8 Other specified noninflammatory disorders of vagina (principal) | CPT/HCPCS: 87070; 87077; 87205 ==